=== PATIENT | male | born 1980 | race Hispanic/Latino ===

== ENCOUNTER 2017-01-30 14:03 | Inpatient (IN) | payer MEDICARE, MEDICAID ==
[2017-01-30] MEDS ORDERED: Sodium Chloride 0.9% 1,000 ML IV STA ×3 (14:47→21:34)
[2017-01-30] MEDS ORDERED: Morphine 4 mg/ml ISec IVP STA ×2 (14:47→18:12)
--- NOTE | 2017-01-30 14:52 | ED PDOC ---
Arrival/HPI - General Chief Complaint: Abdominal Pain Time Seen by Provider: 01/30/17 14:06 Historian: Patient, Family - History of Present Illness Narrative History of Present Illness (Text): 01/30/17 14:53 A 36 year old male, whose past medical history includes crohn's disease and pyelonephritis, presents to the emergency department complaining of abdominal pain for about a week. Patient's family reports patient hasn't been eating or drinking and noticed patient discomfort when sitting. 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 Also reports he had an elevated CBC level about 6 days ago and has a scheduled CT abdomen without contrast for abdominal pain to see if patient has kidney stone. Patient is taking Levaquin. Patient notes a low grade fever but denies any vomiting, hematochezia, constipation or any other complaints at this time. Time/Duration: 1 week Symptom Onset: Sudden Symptom Course: Unchanged Activities at Onset: Rest Context: Home Past Medical History - Provider Review Nursing Documentation Reviewed: Yes - Infectious Disease Hx of Infectious Diseases: None - Tetanus Immunization Tetanus Immunization: Up to Date - Cardiac Hx Pacemaker: No - Pulmonary Hx Respiratory Disorders: No Hx Asthma: No Hx Bronchitis: No Hx Chronic Obstructive Pulmonary Disease (COPD): No Hx Emphysema: No Hx Pneumonia: No Hx Respiratory Aspiration: No Hx Respiratory Tract Infection: No Hx Sleep Apnea: No Hx Tuberculosis: No - Neurological Hx Neurological Disorder: No Hx Alzheimer's Disease: No HX Cerebrovascular Accident: No Hx Dementia: No Hx Dizziness: No Hx Meningitis: No Hx Migraine: No Hx Parkinson's Disease: No Hx Seizures: No Hx Transient Ischemic Attacks (TIA): No Other/Comment: DOWN'S SYNDROME. - HEENT Hx HEENT Disorder: Yes Hx Blind: No Hx Cataracts: No Hx Deafness: Yes (BILATERAL HEARING AIDES USED) Hx Difficulty Chewing: No Hx Epistaxis: No Hx Glaucoma: No Hx Macular Degeneration: No - Renal Hx Renal Disorder: Yes Hx Dialysis: No Hx Kidney Stones: No Hx Neurogenic Bladder: No Hx Pyelonephritis: No Hx Renal Cancer: No Hx Renal Failure: No Other/Comment: Current kidney infection - Endocrine/Metabolic Hx Hypothyroidism: Yes - Hematological/Oncological Hx Blood Transfusions: Yes (LAST YEAR) Hx Blood Transfusion Reaction: No - Integumentary Hx Dermatological Disorder: Yes (LARGE GAPING WOUND IN BETWEEN BUTTOCKS.7.5 CM IN LENGTH.) Hx Basal Cell Carcinoma: No Hx Eczema: No Hx Melanoma: No Hx Psoriasis: No Hx Squamous Cell Carcinoma: No - Musculoskeletal/Rheumatological Hx Musculoskeletal Disorders: Yes - Gastrointestinal Hx Gastrointestinal Disorders: Yes Hx Colitis: Yes - Genitourinary/Gynecological Hx Genitourinary Disorders: No Hx Reproductive Disorders: No - Psychiatric Hx Emotional Abuse: No Hx Physical Abuse: No Hx Substance Use: No - Surgical History Hx Cardiac Catheterization: No Hx Coronary Stent: No Other/Comment: Pilonidal cyst - Anesthesia Hx Anesthesia Reactions: No Hx Malignant Hyperthermia: No - Suicidal Assessment Feels Threatened In Home Enviroment: No Family/Social History - Physician Review Nursing Documentation Reviewed: Yes Family/Social History: No Known Family HX Smoking Status: Never Smoked Hx Alcohol Use: No Hx Substance Use: No Hx Substance Use Treatment: No Allergies/Home Meds Allergies/Adverse Reactions: Allergies Sulfa (Sulfonamide Antibiotics) Allergy (Verified 01/30/17 14:11) ANAPHYLAXIS Home Medications: Home Meds Medication Instructions Recorded Confirmed Levofloxacin [Levaquin] 750 mg PO DAILY 01/30/17 01/30/17 Review of Systems - Physician Review All systems were reviewed & negative as marked: Yes - Review of Systems Constitutional: Fevers (low grade) Gastrointestinal: Abdominal Pain, Appetite Changes. absent: Hematochezia Physical Exam Vital Signs Reviewed: Yes Vital Signs Temp Pulse Resp BP Pulse Ox 01/30/17 23:37 100 H 16 90/59 L 92 L 01/30/17 22:30 102 H 18 102/50 L 01/30/17 18:15 102 H 18 102/50 L 94 L 01/30/17 16:10 98 H 17 105/72 96 01/30/17 14:17 97.3 F L 98 H 18 129/64 97 01/30/17 14:16 97.6 F 94 H 18 129/67 96 Temperature: Afebrile Blood Pressure: Normal Pulse: Regular Respiratory Rate: Normal Appearance: Positive for: Well-Appearing, Non-Toxic, Comfortable Pain Distress: None Mental Status: Positive for: Alert and Oriented X 3 - Systems Exam Head: Present: Atraumatic, Normocephalic Pupils: Present: PERRL Extroacular Muscles: Present: EOMI Conjunctiva: Present: Normal Mouth: Present: Moist Mucous Membranes Neck: Present: Normal Range of Motion Respiratory/Chest: Present: Clear to Auscultation, Good Air Exchange. No: Respiratory Distress, Accessory Muscle Use Cardiovascular: Present: Regular Rate and Rhythm, Normal S1, S2. No: Murmurs Abdomen: Present: Tenderness (diffuse, nonfocal), Normal Bowel Sounds. No: Distention, Peritoneal Signs, Rebound, Guarding Back: Present: Normal Inspection Upper Extremity: Present: Normal Inspection. No: Cyanosis, Edema Lower Extremity: Present: Normal Inspection. No: Edema Neurological: Present: GCS=15, CN II-XII Intact, Speech Normal. No: Other ( focal deficits) Skin: Present: Warm, Dry, Pale. No: Rashes Psychiatric: Present: Alert, Oriented x 3, Normal Insight, Normal Concentration Medical Decision Making ED Course and Treatment: 01/30/17 17:33 Case discussed with GI fellow, will be on consult. CT Abdomen and Pelvis Without Intravenous Contrast IMPRESSION: - Findings suspicious for malignancy. There is diffuse retroperitoneal lymphadenopathy, a new finding compared to a prior CT, as well as suspected multiple indeterminate liver lesions. Further workup is recommended. - Moderate abdominal and pelvic ascites which appears loculated/complex. - Bilateral pulmonary consolidation, suspicious for pulmonary vascular congestion (versus diffuse pneumonia). - Moderate wall wall thickening involving the descending colon, suspicious for segmental colitis (versus neoplastic wall thickening). - Small left pleural effusion. - Small to moderate pericardial effusion. - Diffuse bladder wall thickening, also seen on prior exam. This is a nonspecific finding, but can be seen with cystitis. Recommend clinical correlation. - See above for remaining findings. Dictated and Authenticated by: Francesca Allen MD 01/30/2017 8:10 PM Eastern Time ([place] & [place]) US Abdomen Limited, Right Upper Quadrant IMPRESSION: Multiple solid-appearing liver lesions, highly suspicious for neoplasm, most likely liver metastases. Biliary ductal dilatation, cause not identified. Recommend correlation with LFTs for laboratory evidence of biliary obstruction. Small amount of ascites. Contracted gallbladder, containing multiple gallstones. No definite sonographic evidence of cholecystitis. See above for remaining findings. Dictated and Authenticated by: Francesca Allen MD 01/30/2017 9:12 PM Eastern Time ([place] & [place]) I disc test results w the pts parents. - Lab Interpretations Microbiology Results: Microbiology Results 01/30/17 14:40 Blood-Venous Blood Culture - Preliminary NO GROWTH AFTER 4 DAYS 01/30/17 14:20 Blood-Venous Blood Culture - Preliminary NO GROWTH AFTER 4 DAYS 01/30/17 15:15 Urine Urine Culture - Final No Growth (<1,000 CFU/ML) Lab Results: 01/30/17 14:45 01/30/17 14:45 Lab Results 01/30/17 15:15: Urine Color Laquita, Urine Appearance Cloudy, Urine pH 5.5, Ur Specific [place] >= 1.030, Urine Protein 100 H, Urine Glucose (UA) 250 H, Urine Ketones Trace H, Urine Blood Negative, Urine Nitrate Positive H, Urine Bilirubin Large H, Urine Urobilinogen 2.0 H, Ur Leukocyte Esterase Trace H, Urine RBC TEST NOT PERFORMED, Urine WBC 5 - 10, Ur Epithelial Cells 6 - 8, Amorphous Sediment Moderate, Urine Bacteria Trace 01/30/17 14:50: pO2 136 H, VBG pH 7.41, VBG pCO2 34.0 L, VBG HCO3 21.6, VBG Total CO2 22.6, VBG O2 Sat (Calc) 99.2 H, VBG Base Excess -2.3 L, VBG Potassium 4.1, Glucose 84, Lactate 2.0, FiO2 21.0, Sodium 131.0 L, Chloride 102.0, Venous Blood Potassium 4.1 01/30/17 14:45: Sodium 132, Potassium 4.3, Chloride 100, Carbon Dioxide 21, Anion Gap 15, BUN 26 H, Creatinine 1.9 H, Est GFR ( Amer) 49, Est GFR ( Non-Af Amer) 41, Random Glucose 66 L, Calcium 8.5, Total Bilirubin 12.6 H, AST 129 H, ALT 121 H, Alkaline Phosphatase 1170 H, Total Protein 7.6, Albumin 2.8 L , Globulin 4.9, Albumin/Globulin Ratio 0.6 L, Lipase 43 01/30/17 14:45: WBC 43.0 H* D, RBC 4.27, Hgb 14.9, Hct 41.1 L, MCV 96.3, MCH 34.9, MCHC 36.3, RDW 14.6 H, Plt Count 157, MPV 11.9 H, Neutrophils % (Manual) 83 H, Band Neutrophils % 0, Lymphocytes % (Manual) 3 L, Monocytes % (Manual) 6, Eosinophils % (Manual) 8 H, Toxic Granulation 2+, Platelet Evaluation Normal, Hypochromasia 1+, Anisocytosis (manual) 1+, Target Cells 2+, Rouleaux 2+, ESR 10 I have reviewed the lab results: Yes - RAD Interpretation Radiology Orders: 01/30/17 18:05 ABD & PELVIS W/O PO OR IV CONT [CT] Stat GALLBLADDER & COMMON DUCT [US] Stat - Medication Orders Current Medication Orders: Albumin Human (Albumin Human 25% (12.5 Gm/50 Ml)) 12.5 gm IV DAILY [facility] Stop: 02/06/17 10:46 Last Admin: 02/04/17 12:32 Dose: Allopurinol (Zyloprim) 100 mg PO DAILY IVAN Last Admin: 02/04/17 10:35 Dose: 100 mg Piperacillin Sod/Tazobactam Sod (Zosyn 2.25 Gm In 0.9% 100 Ml) 2.25 gm in 100 mls @ 100 mls/hr IV Q8 IVAN PRN Reason: Protocol Stop: 02/12/17 22:01 Last Admin: 02/04/17 05:10 Dose: 100 mls/hr Midodrine (Proamatine) 10 mg PO TID [facility] Last Admin: 02/04/17 10:36 Dose: 10 mg Morphine Sulfate (Morphine) 4 mg IVP Q4H PRN PRN Reason: Pain, severe (8-10) Last Admin: 01/31/17 09:30 Dose: 4 mg Re-Assess: [facility] Pain Assessment Document 01/31/17 10:30 AJ (Rec: 01/31/17 14:10 [id number]) Pain Reassessment Is this a pain reassessment? Yes Sleep Is patient sleeping during reassessment? Yes Morphine Sulfate (Morphine) 2 mg IVP Q3H PRN PRN Reason: Pain, moderate (4-7) Last Admin: 02/04/17 11:20 Dose: 2 mg Re-Assess: [facility] Pain Assessment Document 02/04/17 12:16 MMA (Rec: 02/04/17 12:16 MMA [id number][facility] Pain Reassessment Is this a pain reassessment? No Sleep Is patient sleeping during reassessment? No Presence of Pain Presence of Pain Yes Pain Scale Used Pain Scale Used Numeric Location Left, Right or Bilateral Bilateral Upper or Lower Lower Pain Location Body Site Back Description Description Constant Acceptable Level of Pain 8 Pain Behavior Moaning Guarding Facial Grimacing Alleviating Factors/Management Medication Techniques Alleviating Factors Medication Octreotide Acetate (Sandostatin) 100 mcg SC TID [facility] Stop: 02/06/17 14:01 Last Admin: 02/04/17 10:58 Dose: 100 mcg Ondansetron HCl (Zofran Inj) 4 mg IVP Q4H PRN PRN Reason: Nausea/Vomiting Last Admin: 02/02/17 16:58 Dose: 4 mg Phytonadione (Vitamin K Inj) 10 mg SC DAILY [facility] Last Admin: 02/04/17 10:59 Dose: 10 mg Polyethylene Glycol (Miralax) 17 gm PO DAILY [facility] Last Admin: 02/04/17 10:58 Dose: Discontinued Medications Acetaminophen (Tylenol 325mg Tab) 650 mg PO Q4 PRN PRN Reason: Pain, Mild (1-3) Last Admin: 02/01/17 14:19 Dose: 650 mg Re-Assess: MAR Pain/Vitals Document 02/01/17 15:19 SD (Rec: 02/01/17 16:50 SD [id number]) Pain Reassessment Is This A Pain ReAssessment? Yes Sleep Is patient sleeping during reassessment? No Albumin Human (Albumin Human 25% (12.5 Gm/50 Ml)) 12.5 gm IV Q2H IVAN Stop: 01/31/17 15:31 Last Admin: 01/31/17 21:12 Dose: 12.5 gm Albumin Human (Albumin Human 25% (12.5 Gm/50 Ml)) 25 gm IV Q2H IVAN Stop: 02/01/17 14:16 Last Admin: 02/01/17 16:49 Dose: 25 gm Albumin Human (Albumin Human 25% (12.5 Gm/50 Ml)) 12.5 gm IV STAT STA Stop: 02/04/17 12:07 Last Admin: 02/04/17 12:21 Dose: 12.5 gm Allopurinol (Zyloprim) Confirm Administered Dose 100 mg .ROUTE .STK-MED ONE Stop: 02/04/17 10:31 Ephedrine (Ephedrine) Confirm Administered Dose 50 mg .ROUTE .STK-MED ONE Stop: 02/03/17 13:15 Fentanyl (Fentanyl) Confirm Administered Dose 200 mcg .ROUTE .STK-MED ONE Stop: 01/31/17 17:45 Last Admin: 01/31/17 18:15 Dose: 100 mcg Comments: FOR CT BIOPSY Fentanyl (Fentanyl) Confirm Administered Dose 100 mcg .ROUTE .STK-MED ONE Stop: 02/04/17 12:21 Sodium Chloride (Sodium Chloride 0.9%) 1,000 mls @ 999 mls/hr IV .Q1H1M STA Stop: 01/30/17 15:47 Last Admin: 01/30/17 15:01 Dose: 999 mls/hr Piperacillin Sod/Tazobactam Sod (Zosyn 3.375 In Ns 100ml) 100 mls @ 200 mls/hr IVPB STAT STA PRN Reason: Protocol Stop: 01/30/17 15:53 Last Admin: 01/30/17 15:56 Dose: 200 mls/hr Sodium Chloride (Sodium Chloride 0.9%) 1,000 mls @ 100 mls/hr IV .Q10H [facility] Last Admin: 01/31/17 14:26 Dose: 100 mls/hr Sodium Chloride (Sodium Chloride 0.9%) 1,000 mls @ 999 mls/hr IV .Q1H1M STA Stop: 01/30/17 19:12 Last Admin: 01/30/17 18:21 Dose: 999 mls/hr Sodium Chloride (Sodium Chloride 0.9%) 1,000 mls @ 999 mls/hr IV .Q1H1M STA Stop: 01/30/17 22:34 Piperacillin Sod/Tazobactam Sod (Zosyn 3.375 In Ns 100ml) 100 mls @ 200 mls/hr IVPB Q6 IVAN PRN Reason: Protocol Stop: 02/07/17 00:01 Last Admin: 02/02/17 05:51 Dose: 200 mls/hr Sodium Chloride (Sodium Chloride 0.9%) 250 mls @ 999 mls/hr IV .Q16M STA Stop: 01/31/17 16:15 Sodium Chloride (Sodium Chloride 0.45%) 1,000 mls @ 80 mls/hr IV .[id number] [facility] Stop: 02/01/17 08:00 Last Admin: 01/31/17 21:13 Dose: 80 mls/hr Dextrose/Sodium Chloride (Dextrose 5%/0.45% Ns 1000 Ml) 1,000 mls @ 100 mls/hr IV .Q10H [facility] Last Admin: 02/03/17 11:58 Dose: 100 mls/hr Sodium Chloride (Sodium Chloride 0.9%) 500 mls @ 250 mls/hr IV .Q2H STA Stop: 02/01/17 20:57 Sodium Chloride (Sodium Chloride 0.9%) 250 mls @ 999 mls/hr IV .Q16M STA Stop: 02/01/17 19:13 Last Admin: 02/01/17 19:21 Dose: 999 mls/hr Albumin Human (Albumin Human 5% (12.5 Gm/250 Ml)) 2,000 mls @ 83 mls/hr IV ONCE ONE Stop: 02/03/17 08:50 Last Admin: 02/02/17 10:25 Dose: 83 mls/hr Piperacillin Sod/Tazobactam Sod (Zosyn 2.25 Gm In 0.9% 100 Ml) 2.25 gm in 100 mls @ 100 mls/hr IVPB Q6 IVAN PRN Reason: Protocol Stop: 02/02/17 18:59 Last Admin: 02/02/17 16:59 Dose: 100 mls/hr Propofol (Diprivan) Confirm Administered Dose 1,000 mg in 100 mls @ ud .ROUTE .STK-MED ONE Stop: 02/03/17 13:14 Sodium Chloride (Sodium Chloride 0.9%) 1,000 mls @ 75 mls/hr IV .[id number] [facility] Stop: 02/03/17 17:16 Vancomycin HCl (Vancomycin 1gm) 1 gm in 250 mls @ 167 mls/hr IVPB STAT STA PRN Reason: Protocol Stop: 02/04/17 11:26 Last Admin: 02/04/17 10:36 Dose: 167 mls/hr Vancomycin HCl (Vancomycin 1gm) Confirm Administered Dose 1 gm in 250 mls @ ud IVPB .STK-MED ONE Stop: 02/04/17 10:32 Heparin Sodium (Porcine) (Heparin 1000 Units/500 Ml Ns) Confirm Administered Dose 2,000 mls @ ud IV .STK-MED ONE Stop: 02/04/17 11:03 Iodixanol (Visipaque 320 Mg/Ml 100 Ml) Confirm Administered Dose 200 ml IV .STK- MED ONE Stop: 02/04/17 11:03 Iohexol (Omnipaque 240 (50 Ml)) Confirm Administered Dose 50 ml .ROUTE .STK-MED ONE Stop: 01/30/17 17:48 Lidocaine HCl (Lidocaine 2% 20ml Vial) Confirm Administered Dose 80 ml .ROUTE .STK-MED ONE Stop: 02/04/17 11:03 Midazolam HCl (Versed Inj) Confirm Administered Dose 4 mg .ROUTE .STK-MED ONE Stop: 01/31/17 17:44 Last Admin: 01/31/17 18:10 Dose: 2 mg Midazolam HCl (Versed Inj) Confirm Administered Dose 4 mg .ROUTE .STK-MED ONE Stop: 02/03/17 13:14 Midazolam HCl (Versed Inj) Confirm Administered Dose 2 mg .ROUTE .STK-MED ONE Stop: 02/04/17 12:20 Midodrine (Proamatine) Confirm Administered Dose 10 mg .ROUTE .STK-MED ONE Stop: 02/04/17 10:29 Last Admin: 02/04/17 12:13 Dose: Morphine Sulfate (Morphine) 4 mg IVP STAT STA Stop: 01/30/17 14:48 Last Admin: 01/30/17 15:01 Dose: 4 mg Morphine Sulfate (Morphine) 4 mg IVP STAT STA Stop: 01/30/17 18:13 Last Admin: 01/30/17 18:22 Dose: 4 mg Morphine Sulfate (Morphine) Confirm Administered Dose 2 mg .ROUTE .ST-MED ONE Stop: 02/04/17 11:21 Naloxone HCl (Narcan) 0.4 mg IVP ONCE ONE Stop: 02/04/17 12:08 Last Admin: 02/04/17 12:13 Dose: 0.4 mg Naloxone HCl (Narcan) Confirm Administered Dose 0.4 mg .ROUTE .STK-MED ONE Stop: 02/04/17 12:13 Ondansetron HCl (Zofran Inj) 4 mg IVP ONCE ONE Stop: 01/30/17 18:13 Last Admin: 01/30/17 18:21 Dose: 4 mg Phenylephrine HCl (Phenylephrine Inj) Confirm Administered Dose 10 mg .ROUTE .STK-MED ONE Stop: 02/03/17 13:15 Phytonadione (Vitamin K Inj) Confirm Administered Dose 10 mg .ROUTE .STK-MED ONE Stop: 02/04/17 10:30 Polyethylene Glycol (Miralax) Confirm Administered Dose 17 gm .ROUTE .STK-MED ONE Stop: 02/04/17 10:32 - Scribe Statement The provider has reviewed the documentation as recorded by the Milvia Weber Provider Scribe Attestation: All medical record entries made by the Abdifatahibe were at my direction and personally dictated by me. I have reviewed the chart and agree that the record accurately reflects my personal performance of the history, physical exam, medical decision making, and the department course for this patient. I have also personally directed, reviewed, and agree with the discharge instructions and disposition. Disposition/Present on Arrival - Present on Arrival Any Indicators Present on Arrival: No History of DVT/PE: No History of Uncontrolled Diabetes: No Urinary Catheter: No History of Decub. Ulcer: No History Surgical Site Infection Following: None - Disposition Have Diagnosis and Disposition been Completed?: Yes Diagnosis: Biliary obstruction, Malignancy, Leukocytosis Disposition: HOSPITALIZED Disposition Time: 18:08 Condition: GUARDED
[2017-01-30 15:20] LABS: HEMATOCRIT 41.1 % (42.0-52.0); MEAN CELL VOLUME 96.3 fL (80.0-105.0); MEAN CORPUSCULAR HEMOGLOBIN 34.9 pg (25.0-35.0); MEAN CORPUSCULAR HGB CONC 36.3 g/dl (31.0-37.0); MEAN PLATELET VOLUME 11.9 fl (7.0-11.0); PLATELET COUNT 157 10^3/uL (120.0-450.0); RED CELL DISTRIBUTION WIDTH 14.6 % (11.5-14.5)
[2017-01-30 15:23] LABS: ADD MANUAL DIFF? YES
[2017-01-30] MEDS ORDERED: Piperacillin/Tazobact 3.375 gm 100 ML IVPB STA (15:24)
[2017-01-30 15:44] LABS: ALB/GLOB RATIO 0.6 (1.1-1.8); BILIRUBIN,TOTAL 12.6 mg/dL (0.2-1.3); CALCIUM 8.5 mg/dL (8.4-10.5); POTASSIUM 4.3 mmol/L (3.6-5.0); TOTAL PROTEIN 7.6 g/dL (5.8-8.3)
[2017-01-30 15:49] LABS: VENOUS BLOOD GAS BASE EXCESS -2.3 mmol/L (0.0-2.0); VENOUS BLOOD PH 7.41 (7.32-7.43)
[2017-01-30 16:09] LABS: BAND 0 % (0-2); NEUTROPHIL 83 % (50.0-70.0)
[2017-01-30 16:10] LABS: ANISOCYTOSIS 1+; EOSINOPHIL 8 % (0.0-3.0); HYPOCHROMIA 1+; PLATELET ESTIMATE NORMAL (NORMAL)
[2017-01-30 16:11] LABS: ERYTHROCYTE SEDIMENTATION RATE 10 mm/hr (0.0-15.0); TARGET CELLS 2+; TOXIC GRANULATION 2+
[2017-01-30 16:22] LABS: PH,URINE 5.5 (4.7-8.0); URINE APPEARANCE CLOUDY (CLEAR); URINE BILIRUBIN LARGE (NEGATIVE); URINE BLOOD NEGATIVE (NEGATIVE); URINE COLOR AMBER (YELLOW); URINE GLUCOSE (UA) 250 mg/dL (NEGATIVE); URINE KETONE TRACE mg/dL (NEGATIVE); URINE LEUKOCYTE ESTERASE TRACE Leu/uL (NEGATIVE); URINE PROTEIN 100 mg/dL (<30 mg/dL)
[2017-01-30 16:26] LABS: URINE AMORPHOUS SEDIMENT MODERATE; URINE BACTERIA TRACE (NEG)
[2017-01-30] MEDS ORDERED: Iohexol 240 (50 ml) ONE (17:47)
[2017-01-30 19:29] LABS: INR 1.81 (0.93-1.08)
--- NOTE | 2017-01-30 20:11 | CT ---
EXAM: CT Abdomen and Pelvis Without Intravenous Contrast CLINICAL HISTORY: 36 years old, male; Pain; Abdominal pain; Acute; Additional info: Abd pain TECHNIQUE: Axial computed tomography images of the abdomen and pelvis without intravenous contrast. This CT exam was performed using one or more of the following dose reduction techniques: automated exposure control, adjustment of the mA and/or kV according to patient size, and/or use of iterative reconstruction technique. Coronal and sagittal reformatted images were created and reviewed. EXAM DATE/TIME: 01/30/2017 6:05 PM COMPARISON: Prior CT abdomen and pelvis of 10/15/2016 FINDINGS: LOWER THORAX: Small left pleural effusion. Small to moderate pericardial effusion. Bilateral pulmonary consolidation, diffuse in nature, mostly groundglass type. This is suspicious for pulmonary vascular congestion versus diffuse pneumonia. ABDOMEN: LIVER: Diffusely heterogeneous attenuation of the liver, suspicious for development of multiple indeterminate liver lesions. These are difficult to differentiate from the normal liver on this unenhanced exam. 2.2 cm fluid density liver lesion, most likely a cyst. GALLBLADDER AND BILE DUCTS: No CT evidence of acute cholecystitis. No evidence of significant biliary ductal dilatation. PANCREAS: No CT evidence of acute pancreatitis. SPLEEN: No acute abnormality of the spleen identified. ADRENALS: No acute abnormality of the adrenal glands identified. KIDNEYS AND URETERS: No acute abnormality of the kidneys seen. STOMACH AND BOWEL: Moderate wall wall thickening involving the descending colon, suspicious for segmental colitis. Otherwise, no significant abnormality of the bowel is identified. No evidence of diffuse colitis/pancolitis. No evidence of bowel obstruction. APPENDIX: Normal appendix is not seen, however, there are no significant inflammatory changes visualized in the expected location of the appendix to suggest appendicitis. Recommend clinical correlation. PELVIS: BLADDER: Diffuse thickening of the bladder wall. This was also seen on the prior exam. REPRODUCTIVE: No acute abnormality of the reproductive organs is seen. ABDOMEN and PELVIS: INTRAPERITONEAL SPACE: Abdominal and pelvic free fluid/ascites, overall moderate in amount, increased compared to the prior exam. This appears loculated/complex. No evidence of free air.. RETROPERITONEAL SPACE: Small amount of diffuse retroperitoneal fluid, and the abdomen and pelvis, increased in amount. No evidence of retroperitoneal hemorrhage. BONES/JOINTS: Stable appearance of marked, chronic-appearing deformity, remodeling, new bone formation, soft tissue thickening, and dislocation involving the left hip. Disuse atrophy of the left hip musculature. SOFT TISSUES: See above. VASCULATURE: No evidence of abdominal aortic aneurysm. No evidence of periaortic hemorrhage. LYMPH NODES: Diffuse retroperitoneal lymphadenopathy, a new finding, highly suspicious for malignancy. This is greatest in the periportal, portacaval, and left para-aortic regions IMPRESSION: - Findings suspicious for malignancy. There is diffuse retroperitoneal lymphadenopathy, a new finding compared to a prior CT, as well as suspected multiple indeterminate liver lesions. Further workup is recommended. - Moderate abdominal and pelvic ascites which appears loculated/complex. - Bilateral pulmonary consolidation, suspicious for pulmonary vascular congestion (versus diffuse pneumonia). - Moderate wall wall thickening involving the descending colon, suspicious for segmental colitis (versus neoplastic wall thickening). - Small left pleural effusion. - Small to moderate pericardial effusion. - Diffuse bladder wall thickening, also seen on prior exam. This is a nonspecific finding, but can be seen with cystitis. Recommend clinical correlation. - See above for remaining findings.
[2017-01-30 21:52] LABS: VENOUS BLOOD GAS BASE EXCESS -5.2 mmol/L (0.0-2.0); VENOUS BLOOD PH 7.32 (7.32-7.43)
[2017-01-30 22:37] VITALS: BMI 35.0
--- NOTE | 2017-01-30 22:59 | CP.PCM.CON ---
History of Present Illness - History of Present Illness History of Present Illness: The patient is a 36 year old male with history of hypothyroidism, Down's syndrome and ulcerative colitis who presents with several days of worsening diffuse abdominal pain and distention and jaundice. Of note, the patient's mother provided much of the history (at bedside). The patient denies fevers, chills, black or bloody stool, N/V, CP, AMS, dysuria, diarrhea or SOB. In the ED , he was found to have several abnormalities including the following: hyperbilirubinemia, transaminitis, leukocyotosis (marked), a "dirty" UA and NIKITA. Also, CT-scan done in the ED shows numerous abnormalities including: liver lesions, ?malignant ascites and colitis. As a result of these numerous issues, an ICU evaluation was requested. The patient is in no acute distress at this time, however. Review of Systems - Review of Systems All systems: reviewed and no additional remarkable complaints except - Constitutional Constitutional: As Per HPI - EENT Eyes: As Per HPI - Cardiovascular Cardiovascular: As Per HPI - Respiratory Respiratory: As Per HPI - Gastrointestinal Gastrointestinal: As Per HPI - Genitourinary Genitourinary: As Per HPI - Musculoskeletal Musculoskeletal: As Per HPI - Integumentary Integumentary: As Per HPI - Neurological Neurological: As Per HPI Past Patient History - Infectious Disease Hx of Infectious Diseases: None - Tetanus Immunizations Tetanus Immunization: Up to Date - Past Social History Smoking Status: Never Smoked - CARDIAC Hx Pacemaker: No - PULMONARY Hx Respiratory Disorders: No Hx Asthma: No Hx Bronchitis: No Hx Chronic Obstructive Pulmonary Disease (COPD): No Hx Emphysema: No Hx Pneumonia: No Hx Respiratory Aspiration: No Hx Respiratory Tract Infection: No Hx Sleep Apnea: No Hx Tuberculosis: No - NEUROLOGICAL Hx Neurological Disorder: No Hx Alzheimer's Disease: No HX Cerebrovascular Accident: No Hx Dementia: No Hx Dizziness: No Hx Meningitis: No Hx Migraine: No Hx Parkinson's Disease: No Hx Seizures: No Hx Transient Ischemic Attacks (TIA): No Other/Comment: DOWN'S SYNDROME. - HEENT Hx HEENT Problems: Yes Hx Blind: No Hx Cataracts: No Hx Deafness: Yes (BILATERAL HEARING AIDES USED) Hx Difficulty Chewing: No Hx Epistaxis: No Hx Glaucoma: No Hx Macular Degeneration: No - RENAL Hx Chronic Kidney Disease: Yes Hx Dialysis: No Hx Kidney Stones: No Hx Neurogenic Bladder: No Hx Pyelonephritis: No Hx Renal (Kidney) Cancer: No Hx Renal Failure: No Other/Comment: Current kidney infection - ENDOCRINE/METABOLIC Hx Hypothyroidism: Yes - HEMATOLOGICAL/ONCOLOGICAL Hx Blood Disorders: Yes Hx AIDS: No Hx Anemia: Yes (IRON INFUSIONS WEEKLY THURSDAYS) Hx Cancer: No Hx Chemotherapy: No Hx Cirrhosis: No Hx Hepatitis A: No Hx Hepatitis B: No Hx Hepatitis C: No Hx Metastesis: No Hx Shingles: No Hx Unexplained Bleeding: No - INTEGUMENTARY Hx Dermatological Problems: Yes (LARGE GAPING WOUND IN BETWEEN BUTTOCKS.7.5 CM IN LENGTH.) Hx Basil Cell: No Hx Eczema: No Hx Melanoma: No Hx Psoriasis: No Hx Squamous Cell: No - MUSCULOSKELETAL/RHEUMATOLOGICAL Hx Falls: No - GASTROINTESTINAL Hx Gastrointestinal Disorders: Yes - GENITOURINARY/GYNECOLOGICAL Hx Genitourinary Disorders: No - PSYCHIATRIC Hx Emotional Abuse: No Hx Physical Abuse: No - SURGICAL HISTORY Hx Cardiac Catheterization: No Hx Coronary Stent: No Other/Comment: Pilonidal cyst - ANESTHESIA Hx Anesthesia Reactions: No Hx Malignant Hyperthermia: No Meds Allergies/Adverse Reactions: Allergies Allergy/AdvReac Type Severity Reaction Status Date / Time Sulfa (Sulfonamide Allergy ANAPHYLAXIS Verified 01/30/17 14:11 Antibiotics) - Medications Medications: Current Medications Sodium Chloride (Sodium Chloride 0.9%) 1,000 mls @ 100 mls/hr IV .Q10H IVAN Piperacillin Sod/Tazobactam Sod (Zosyn 3.375 In Ns 100ml) 100 mls @ 200 mls/hr IVPB Q6 IVAN PRN Reason: Protocol Stop: 02/07/17 00:01 Physical Exam - Constitutional Additional comments: No acute distress; A&Ox4 - Head Exam Head Exam: ATRAUMATIC, NORMAL INSPECTION, NORMOCEPHALIC - Eye Exam Additional comments: Icteric sclera bilaterally - ENT Exam ENT Exam: Mucous Membranes Dry - Neck Exam Neck exam: Positive for: Full Rom, Normal Inspection - Respiratory Exam Respiratory Exam: Clear to Auscultation Bilateral, NORMAL BREATHING PATTERN - Cardiovascular Exam Cardiovascular Exam: REGULAR RHYTHM - GI/Abdominal Exam Additional comments: Distended; Mild diffuse tenderness to deep palpation; No fluid wave; Normal bowel sounds - Rectal Exam Rectal Exam: Deferred - Neurological Exam Additional comments: Grossly normal neuro exam - Skin Additional comments: Jaundice Results - Vital Signs Recent Vital Signs: Last Vital Signs Temp 97.3 F L 01/30/17 14:17 Pulse 102 H 01/30/17 22:30 Resp 18 01/30/17 22:30 BP 102/50 L 01/30/17 22:30 Pulse Ox 94 L 01/30/17 18:15 - Labs Result Diagrams: 01/31/17 06:30 01/31/17 06:30 Labs: Laboratory Results - last 24 hr 01/30/17 01/30/17 01/30/17 19:00 19:00 21:30 PT 19.5 H INR 1.81 H pO2 99 H VBG pH 7.32 VBG pCO2 40.0 VBG HCO3 20.6 L VBG Total CO2 21.8 L VBG O2 Sat (Calc) 97.8 H VBG Base Excess -5.2 L VBG Potassium 4.4 Sodium 133.0 Chloride 104.0 Glucose 75 Lactate 1.8 FiO2 21.0 Direct Bilirubin 10.8 H Venous Blood Potassium 4.4 - Imaging and Cardiology CT scan - abdomen Status: Report reviewed by me Assessment & Plan - Assessment and Plan (Free Text) Plan: A/P: The patient is a 36 year old male with history of hypothyroidism, Down's syndrome and ulcerative colitis who presents with possible acute cholangitis, NIKITA, leukocytosis, UTI, colitis and ascites. Although the patient does have several acute medical issues, he doesn't require ICU level of care at this time mainly because he is not septic and his vitals are within normal range. Also, his mentation and blood pressures are normal. Recommend starting broad spectrum antibiotics (IV Vanco/Zosyn) and aggressive IVF's. Keep NPO. Check prolactin level. Also recommend doing a therapeutic and diagnostic paracentesis and consulting both GI and ID. If patient's condition continues to deteriorate, please feel free to re-consult. Thank you.
[2017-01-31] MEDS: Sodium Chloride 0.9% 1,000 ML IV SCH ×2 (00:01→14:26)
[2017-01-31] MEDS: Piperacillin/Tazobact 3.375 gm 100 ML IVPB SCH ×3 (00:18→14:05)
[2017-01-31 07:22] LABS: MEAN CELL VOLUME 98.1 fL (80.0-105.0); MEAN CORPUSCULAR HEMOGLOBIN 33.7 pg (25.0-35.0); MEAN CORPUSCULAR HGB CONC 34.3 g/dl (31.0-37.0); MEAN PLATELET VOLUME 11.7 fl (7.0-11.0); RED CELL DISTRIBUTION WIDTH 14.8 % (11.5-14.5)
[2017-01-31 07:31] LABS: ALB/GLOB RATIO 0.6 (1.1-1.8); BILIRUBIN,TOTAL 11.8 mg/dL (0.2-1.3); CALCIUM 7.6 mg/dL (8.4-10.5); MAGNESIUM 1.8 mg/dL (1.7-2.2); POTASSIUM 4.5 mmol/L (3.6-5.0); TOTAL PROTEIN 6.2 g/dL (5.8-8.3)
[2017-01-31 07:38] LABS: WHITE BLOOD COUNT 42.4 10^3/ul (4.5-11.0)
--- NOTE | 2017-01-31 07:44 | CP.PCM.CON ---
<Namita Bryant - Last Filed: 01/31/17 08:58> History of Present Illness - History of Present Illness History of Present Illness: Gastroenterology Fellow/PGY4 Consult Note 36 year old male with history of Hypothyroidism, Down's syndrome, Ulcerative colitis diagnosed 11/2015 on Entyvio last dose beginning of December, with next dose due tomorrow (02/01/17) presenting with abdominal pain. Mother at bedside and patient provide history. She notes two week history of loss of appetite and abdominal pain. Patient describes diffuse severe abdominal pain with particular focus on upper abdomen. Recent outpatient visit with Dr. Escalante 01/26/17 with rectal exam confirming healed sacral wound and concern for UTI confirmed by urine culture at previous PCP visit with progression to possible pyelonephritis. Patient was empirically started on Bactrim double strength and provided script for CT A/P which was scheduled through hospital for today. Unfortunately, patient developed severe abdominal pain and low grade fever at home of 99 degrees Fahrenheit leading to ER presentation yesterday. Mother notes yellowing of skin, eyes, abdominal distension, loss of appetite, and patient noting daily abdominal pain. Denies diarrhea, hematochezia, melena, nausea, vomiting, or hematemesis, indigestion, cough, chest pain, or shortness of breath, weight loss, joint pain, back pain, uveitis, or aphthous ulcers, skin ulcers or rashes. Prior EGD and colonoscopy 11/2015 showing Gastritis and inflamed ulcerated descending/sigmoid/rectum/anus colitis with granulomas/ cryptitis and no dysplasia. Flexible sigmoidoscopy 10/15/16 showed mild chronic active transverse/descending/sigmoid/rectum/anus colitis wth erythematous/ friable/ulcerations/pseudopolyps and a traversed moderate sigmoid stenosis 30cm from anal verge showing benign tissue with granulomatous changes. Family- denies colon cancer Social-denies tobacco, alcohol, illicit drug use Surgery-left ear surgery as an Review of Systems - Review of Systems Review of Systems: A 12-point review of systems negative except for as above Past Patient History - Infectious Disease Hx of Infectious Diseases: None - Tetanus Immunizations Tetanus Immunization: Up to Date - Past Social History Smoking Status: Never Smoked - CARDIAC Hx Pacemaker: No - PULMONARY Hx Respiratory Disorders: No Hx Asthma: No Hx Bronchitis: No Hx Chronic Obstructive Pulmonary Disease (COPD): No Hx Emphysema: No Hx Pneumonia: No Hx Respiratory Aspiration: No Hx Respiratory Tract Infection: No Hx Sleep Apnea: No Hx Tuberculosis: No - NEUROLOGICAL Hx Neurological Disorder: No Hx Alzheimer's Disease: No HX Cerebrovascular Accident: No Hx Dementia: No Hx Dizziness: No Hx Meningitis: No Hx Migraine: No Hx Parkinson's Disease: No Hx Seizures: No Hx Transient Ischemic Attacks (TIA): No Other/Comment: DOWN'S SYNDROME. - HEENT Hx HEENT Problems: Yes Hx Blind: No Hx Cataracts: No Hx Deafness: Yes (BILATERAL HEARING AIDES USED) Hx Difficulty Chewing: No Hx Epistaxis: No Hx Glaucoma: No Hx Macular Degeneration: No - RENAL Hx Chronic Kidney Disease: Yes Hx Dialysis: No Hx Kidney Stones: No Hx Neurogenic Bladder: No Hx Pyelonephritis: No Hx Renal (Kidney) Cancer: No Hx Renal Failure: No Other/Comment: Current kidney infection - ENDOCRINE/METABOLIC Hx Hypothyroidism: Yes - HEMATOLOGICAL/ONCOLOGICAL Hx Blood Disorders: Yes Hx AIDS: No Hx Anemia: Yes (IRON INFUSIONS WEEKLY THURSDAYS) Hx Cancer: No Hx Chemotherapy: No Hx Cirrhosis: No Hx Hepatitis A: No Hx Hepatitis B: No Hx Hepatitis C: No Hx Metastesis: No Hx Shingles: No Hx Unexplained Bleeding: No - INTEGUMENTARY Hx Dermatological Problems: Yes (LARGE GAPING WOUND IN BETWEEN BUTTOCKS.7.5 CM IN LENGTH.) Hx Basil Cell: No Hx Eczema: No Hx Melanoma: No Hx Psoriasis: No Hx Squamous Cell: No - MUSCULOSKELETAL/RHEUMATOLOGICAL Hx Falls: No - GASTROINTESTINAL Hx Gastrointestinal Disorders: Yes - GENITOURINARY/GYNECOLOGICAL Hx Genitourinary Disorders: No - PSYCHIATRIC Hx Emotional Abuse: No Hx Physical Abuse: No - SURGICAL HISTORY Hx Cardiac Catheterization: No Hx Coronary Stent: No Other/Comment: Pilonidal cyst - ANESTHESIA Hx Anesthesia Reactions: No Hx Malignant Hyperthermia: No Meds Allergies/Adverse Reactions: Allergies Allergy/AdvReac Type Severity Reaction Status Date / Time Sulfa (Sulfonamide Allergy ANAPHYLAXIS Verified 01/30/17 14:11 Antibiotics) - Medications Medications: Current Medications Sodium Chloride (Sodium Chloride 0.9%) 1,000 mls @ 100 mls/hr IV .Q10H IVAN Last Admin: 01/31/17 00:01 Dose: 100 mls/hr Piperacillin Sod/Tazobactam Sod (Zosyn 3.375 In Ns 100ml) 100 mls @ 200 mls/hr IVPB Q6 IVAN PRN Reason: Protocol Stop: 02/07/17 00:01 Last Admin: 01/31/17 05:58 Dose: 200 mls/hr Physical Exam - Constitutional Appears: Chronically Ill - Head Exam Head Exam: ATRAUMATIC, NORMOCEPHALIC - Eye Exam Eye Exam: EOMI, PERRL, Scleral icterus Pupil Exam: PERRL. absent: Miosis, Mydriatic - ENT Exam ENT Exam: Mucous Membranes Dry, Normal Oropharynx - Neck Exam Neck exam: Positive for: Full Rom, Normal Inspection - Respiratory Exam Respiratory Exam: Clear to Auscultation Bilateral. absent: Rales, Rhonchi, Wheezes - Cardiovascular Exam Cardiovascular Exam: RRR, +S1, +S2. absent: Gallop, Rubs - GI/Abdominal Exam GI & Abdominal Exam: Distended, Normal Bowel Sounds, Soft, Tenderness. absent: Firm, Guarding, Organomegaly, Rebound, Rigid Additional comments: diffuse tenderness to palpation - Extremities Exam Extremities exam: Positive for: normal inspection, pedal edema - Neurological Exam Neurological exam: Alert - Psychiatric Exam Psychiatric exam: Normal Affect, Normal Mood - Skin Skin Exam: Dry, Intact, Warm Additional comments: jaundice Results - Vital Signs Recent Vital Signs: Last Vital Signs Temp 97.6 F 01/31/17 00:06 Pulse 102 H 01/31/17 00:06 Resp 20 01/31/17 00:06 BP 101/64 01/31/17 00:06 Pulse Ox 96 01/31/17 00:06 - Labs Result Diagrams: 01/31/17 06:30 01/31/17 06:30 Labs: Laboratory Results - last 24 hr 01/30/17 01/30/17 01/30/17 19:00 19:00 21:30 PT 19.5 H INR 1.81 H pO2 99 H VBG pH 7.32 VBG pCO2 40.0 VBG HCO3 20.6 L VBG Total CO2 21.8 L VBG O2 Sat (Calc) 97.8 H VBG Base Excess -5.2 L VBG Potassium 4.4 Sodium 133.0 Chloride 104.0 Glucose 75 Lactate 1.8 FiO2 21.0 Direct Bilirubin 10.8 H Venous Blood Potassium 4.4 Assessment & Plan - Assessment and Plan (Free Text) Assessment: 36 year old male with history of Hypothyroidism, Down's syndrome, Ulcerative colitis diagnosed 11/2015 on Entyvio presenting with abdominal pain. Recent outpatient visit and initiated UTI treatment. CT A/P without contrast showed extensive lymphadenopathy, multiple liver lesions, descending colitis, and pleural effusion/consolidation versus congestion, pleural effusion, and pericardial effusion, and small ascites. 11/2015 EGD- mild chronic gastritis 11/2015 Colonoscopy-ulcerated descending/sigmoid/rectum/anus colitis with granulomas/cryptitis and no dysplasia 10/2016 Flexible sigmoidoscopy-mild chronic active transverse/descending/sigmoid /rectum/anus colitis -traversed moderate sigmoid stenosis 30cm from anal verge showing benign tissue with granulomatous changes Plan: >DDx: lymphoma, colonic neoplasia with liver metastases >follow up ultrasound to evaluate conjugated hyperbilirubinemia >reviewed with Dr. Willis >small ascites- not enough for paracentesis >clear liquid diet after ultrasound performed >left para-aortic lymph node core biopsy today with flow cytometry >follow up results- may consider liver biopsy based on LN biopsy results >acute renal failure- conitune fluid resuscitation -will provide albumin for possible Hepatorenal syndrome- low suspicion >pending blood and urine cultures >on Zosyn >follow up ID recommendations >consider Hem/Onc consultation >close monitoring of clinical course <Tobias Escalante - Last Filed: 01/31/17 11:20> Meds - Medications Medications: Current Medications Albumin Human (Albumin Human 25% (12.5 Gm/50 Ml)) 12.5 gm IV Q2H IVAN Stop: 01/31/17 15:31 Sodium Chloride (Sodium Chloride 0.9%) 1,000 mls @ 100 mls/hr IV .Q10H IVAN Last Admin: 01/31/17 00:01 Dose: 100 mls/hr Piperacillin Sod/Tazobactam Sod (Zosyn 3.375 In Ns 100ml) 100 mls @ 200 mls/hr IVPB Q6 IVAN PRN Reason: Protocol Stop: 02/07/17 00:01 Last Admin: 01/31/17 05:58 Dose: 200 mls/hr Morphine Sulfate (Morphine) 4 mg IVP Q4H PRN PRN Reason: Pain, severe (8-10) Last Admin: 01/31/17 09:30 Dose: 4 mg Results - Vital Signs Recent Vital Signs: Last Vital Signs Temp 97.9 F 01/31/17 07:30 Pulse 93 H 01/31/17 07:30 Resp 20 01/31/17 07:30 BP 94/58 L 01/31/17 07:30 Pulse Ox 99 01/31/17 07:30 - Labs Result Diagrams: 01/31/17 06:30 01/31/17 06:30 Labs: Laboratory Results - last 24 hr 01/30/17 01/30/17 01/30/17 19:00 19:00 21:30 WBC RBC Hgb Hct MCV MCH MCHC RDW Plt Count MPV PT 19.5 H INR 1.81 H pO2 99 H VBG pH 7.32 VBG pCO2 40.0 VBG HCO3 20.6 L VBG Total CO2 21.8 L VBG O2 Sat (Calc) 97.8 H VBG Base Excess -5.2 L VBG Potassium 4.4 Sodium 133.0 Chloride 104.0 Glucose 75 Lactate 1.8 FiO2 21.0 Potassium Carbon Dioxide Anion Gap BUN Creatinine Est GFR ( Amer) Est GFR (Non-Af Amer) Random Glucose Calcium Magnesium Total Bilirubin Direct Bilirubin 10.8 H AST ALT Alkaline Phosphatase Total Protein Albumin Globulin Albumin/Globulin Ratio Venous Blood Potassium 4.4 01/31/17 01/31/17 06:30 06:30 WBC 42.4 H* RBC 3.77 Hgb 12.7 L Hct 37.0 L MCV 98.1 MCH 33.7 MCHC 34.3 RDW 14.8 H Plt Count 149 MPV 11.7 H PT INR pO2 VBG pH VBG pCO2 VBG HCO3 VBG Total CO2 VBG O2 Sat (Calc) VBG Base Excess VBG Potassium Sodium 135 Chloride 106 Glucose Lactate FiO2 Potassium 4.5 Carbon Dioxide 17 L Anion Gap 17 BUN 31 H Creatinine 2.7 H Est GFR ( Amer) 33 Est GFR (Non-Af Amer) 27 Random Glucose 62 L Calcium 7.6 L Magnesium 1.8 Total Bilirubin 11.8 H Direct Bilirubin AST 91 H ALT 108 H Alkaline Phosphatase 883 H Total Protein 6.2 Albumin 2.3 L Globulin 3.9 Albumin/Globulin Ratio 0.6 L Venous Blood Potassium Attending/Attestation - Attestation I have personally seen and examined this patient.: Yes I have fully participated in the care of the patient.: Yes I have reviewed all pertinent clinical information: Yes Notes (Text): 01/31/17 10:52 I have seen and examined patient with GI fellow. Agree with above documentation with the following additions. In brief, this is a 36 year old male with history of Down's syndrome, hypothyroidism, Crohn's colitis with catina- anal disease maintained on outpatient Entyvio who presents to hospital with complaint of abdominal pain, progressive lethargy, and development of jaundice. He was seen in office last week with similar complaints, was found to have a UTI and was given Levaquin and scheduled for outpatient CT imaging for follow up. His symptoms became progressively worse and he came to hospital. He endorses two weeks of lethargy, loss of appetite, and abdominal pain mainly located in left flank. He denies nausea, vomiting, diarrhea, fever/chills, rectal bleeding, night sweats, or weight loss. In fact, he has been progressively gaining weight throughout the course of this year so far. Recently he also reports progressive yellowing of the eyes and skin. He denies recent medication change or OTC/herbal medication use. He had a recent flexible sigmoidoscopy in October 2016 when he was hospitalized for an exacerbation of his underlying inflammatory bowel disease which showed chronic active colitis with sigmoid stenosis, biopsies were negative for dysplasia. After consultation with hematology, he was then started on Entyvio for induction of remission with good clinical response and was planned to undergo complete colonoscopy within 6 months to assess response to therapy. Down's syndrome Hypothyroidism Crohn's colitis, catina-anal disease maintained on outpatient Entyvio Lethargy, abdominal pain, jaundice Acute renal insufficiency Transaminitis, hyperbilirubinemia CT imaging reviewed by me showing small volume catina-hepatic ascites, potential liver lesions (non-contrast CT study performed), and significant intra abdominal lymphadenopathy which is new since prior CT imaging. Differential is broad in this case including infectious complications, lymphoma, or metastatic neoplasm potentially from colonic origin. Presentation is severe, posing threat to patient life. - NPO - Obtain abdominal US to assess for biliary obstruction - Obtain hemolysis panel, LDH - Continue with broad spectrum antibiotic therapy, obtain blood and urine cultures. Follow up ID recommendations. - Continue with IVF hydration therapy and suggest albumin given ascites with acute renal failure for volume challenge to assess response - Continue to monitor LFTs, avoid hepatotoxic therapy - Continue to monitor creatinine - CT imaging reviewed with Dr. Willis, will schedule patient for lymph node biopsy today - Suggest oncology consultation - Overall prognosis is guarded, further management pending results of biopsy and patient clinical progress. Case was discussed in detail with Dr. Marinelli.
[2017-01-31] MEDS ORDERED: Morphine 4 mg/ml ISec IVP PRN (09:07)
[2017-01-31] MEDS: Albumin Human 25% (12.5 gm/50 ml) IV SCH ×4 (10:52→21:12)
--- NOTE | 2017-01-31 11:43 | CP.PCM.CON ---
History of Present Illness - History of Present Illness History of Present Illness: 35 year old male with PMH of hypothyroidism, ulcerative colitis diagnosed in November 2015, obesity with BMI 35, history of pyelonephritis was brought in to [facility] because of abdominal pain for almost as week now. As per the father, the patient was also having low grade fevers. He was being treated with Levaquin for an apparent UTI with associated kidney stone. In the ED, CT scan of the abdomen and pelvis showed colitis with skipped lesions and new onset retroperitoneal lymphadenopathy. Infectious Diseases consult is requested to further evaluate and manage. There has been no note of loss of consciousness , no diarrhea, no vomiting. Review of Systems - Review of Systems All systems: reviewed and no additional remarkable complaints except (as per HPI ) Past Patient History - Infectious Disease Hx of Infectious Diseases: None - Tetanus Immunizations Tetanus Immunization: Up to Date - Past Social History Smoking Status: Never Smoked - CARDIAC Hx Pacemaker: No - PULMONARY Hx Respiratory Disorders: No Hx Asthma: No Hx Bronchitis: No Hx Chronic Obstructive Pulmonary Disease (COPD): No Hx Emphysema: No Hx Pneumonia: No Hx Respiratory Aspiration: No Hx Respiratory Tract Infection: No Hx Sleep Apnea: No Hx Tuberculosis: No - NEUROLOGICAL Hx Neurological Disorder: No Hx Alzheimer's Disease: No HX Cerebrovascular Accident: No Hx Dementia: No Hx Dizziness: No Hx Meningitis: No Hx Migraine: No Hx Parkinson's Disease: No Hx Seizures: No Hx Transient Ischemic Attacks (TIA): No Other/Comment: DOWN'S SYNDROME. - HEENT Hx HEENT Problems: Yes Hx Blind: No Hx Cataracts: No Hx Deafness: Yes (BILATERAL HEARING AIDES USED) Hx Difficulty Chewing: No Hx Epistaxis: No Hx Glaucoma: No Hx Macular Degeneration: No - RENAL Hx Chronic Kidney Disease: Yes Hx Dialysis: No Hx Kidney Stones: No Hx Neurogenic Bladder: No Hx Pyelonephritis: No Hx Renal (Kidney) Cancer: No Hx Renal Failure: No Other/Comment: Current kidney infection - ENDOCRINE/METABOLIC Hx Hypothyroidism: Yes - HEMATOLOGICAL/ONCOLOGICAL Hx Blood Disorders: Yes Hx AIDS: No Hx Anemia: Yes (IRON INFUSIONS WEEKLY THURSDAYS) Hx Cancer: No Hx Chemotherapy: No Hx Cirrhosis: No Hx Hepatitis A: No Hx Hepatitis B: No Hx Hepatitis C: No Hx Metastesis: No Hx Shingles: No Hx Unexplained Bleeding: No - INTEGUMENTARY Hx Dermatological Problems: Yes (LARGE GAPING WOUND IN BETWEEN BUTTOCKS.7.5 CM IN LENGTH.) Hx Basil Cell: No Hx Eczema: No Hx Melanoma: No Hx Psoriasis: No Hx Squamous Cell: No - MUSCULOSKELETAL/RHEUMATOLOGICAL Hx Falls: No - GASTROINTESTINAL Hx Gastrointestinal Disorders: Yes - GENITOURINARY/GYNECOLOGICAL Hx Genitourinary Disorders: No - PSYCHIATRIC Hx Emotional Abuse: No Hx Physical Abuse: No - SURGICAL HISTORY Hx Cardiac Catheterization: No Hx Coronary Stent: No Other/Comment: Pilonidal cyst - ANESTHESIA Hx Anesthesia Reactions: No Hx Malignant Hyperthermia: No Meds Allergies/Adverse Reactions: Allergies Allergy/AdvReac Type Severity Reaction Status Date / Time Sulfa (Sulfonamide Allergy ANAPHYLAXIS Verified 01/30/17 14:11 Antibiotics) - Medications Medications: Current Medications Sodium Chloride (Sodium Chloride 0.9%) 1,000 mls @ 100 mls/hr IV .Q10H IVAN Physical Exam - Constitutional Appears: Chronically Ill - Head Exam Head Exam: ATRAUMATIC - Neck Exam Neck exam: Negative for: Lymphadenopathy, Meningismus - Respiratory Exam Respiratory Exam: Decreased Breath Sounds - Cardiovascular Exam Cardiovascular Exam: +S1, +S2 - GI/Abdominal Exam GI & Abdominal Exam: Soft, Tenderness (lower qudarants). absent: Firm, Guarding , Rebound, Rigid Results - Vital Signs Recent Vital Signs: Last Vital Signs Temp 97.3 F L 01/30/17 14:17 Pulse 102 H 01/30/17 22:30 Resp 18 01/30/17 22:30 BP 102/50 L 01/30/17 22:30 Pulse Ox 94 L 01/30/17 18:15 - Labs Result Diagrams: 01/31/17 06:30 01/31/17 06:30 Labs: Laboratory Results - last 24 hr 01/30/17 01/30/17 01/30/17 19:00 19:00 21:30 PT 19.5 H INR 1.81 H pO2 99 H VBG pH 7.32 VBG pCO2 40.0 VBG HCO3 20.6 L VBG Total CO2 21.8 L VBG O2 Sat (Calc) 97.8 H VBG Base Excess -5.2 L VBG Potassium 4.4 Sodium 133.0 Chloride 104.0 Glucose 75 Lactate 1.8 FiO2 21.0 Direct Bilirubin 10.8 H Venous Blood Potassium 4.4 Assessment & Plan - Assessment and Plan (Free Text) Plan: Assessmentu Consider acute exacerbation of ulcerative colitis, R/O infectious colitis, with new-onset retroperitoneal lymphadenopathy history of Cdiff associated diarrhea history of buttock ulcer hypothyroidism ulcerative colitis diagnosed in November 2015 obesity with BMI 35 Plan started patient on Zosyn pending blood cx, ascitic fluid analysis follow up GI recommendations will monitor clinically
--- NOTE | 2017-01-31 11:45 | US ---
HISTORY: abd pain elevated LFT and alk phos COMPARISON: CT abdomen pelvis without oral or IV contrast performed 01/30/17 TECHNIQUE: Sonographic evaluation of the right upper quadrant of the abdomen. FINDINGS: LIVER: Measures 20.2 cm in length. Diffuse heterogeneous appearance of the hepatic parenchyma. Multiple solid-appearing masses are noted, highly suspicious for malignant neoplasm. The largest of these lesions measures approximately 7.6 x 7.5 cm (right hepatic lobe) and appears rounded heterogeneous in appearance. The main portal vein appears patent with normal directional flow. Intrahepatic biliary ductal dilatation. Small ascites. GALLBLADDER: The gallbladder appears contracted with multiple gallstones (wall echo shadow appearance of the gallbladder fossa). Shadowing limits evaluation of the gallbladder. Largest calculus measuring approximately 2.3 cm. Gallbladder wall measures approximately 2 mm in thickness. No evidence of pericholecystic edema. Negative Edgar's sign as assessed by the mileage clerk. COMMON BILE DUCT: Measures 7 mm. PANCREAS: Not well-visualized. RIGHT KIDNEY: Measures 9.8 x 5.4 x 5.4 cm. No obstructing calculus or hydronephrosis identified. AORTA: Not visualized. IVC: Not visualized. OTHER FINDINGS: None . IMPRESSION: Hepatomegaly. Multiple solid-appearing hepatic masses, highly suspicious for neoplasm, most likely liver metastases. Biliary ductal dilatation, uncertain cause. Recommend correlation with LFTs for laboratory evidence of biliary obstruction. Small ascites. Contracted gallbladder containing multiple gallstones. Negative sonographic Edgar's sign as assessed by the mileage clerk. No evidence of gallbladder wall thickening or pericholecystic edema. Correlate clinically. Additional findings as above. Preliminary impression was provided by virtual radiologic.
[2017-01-31 12:46] LABS: RETIC% 1.29 % (0.5-1.5)
[2017-01-31 13:37] LABS: FIBRINOGEN 191.6 mg/dL (187-400)
[2017-01-31 13:39] LABS: D DIMER 3.63 mg/L FEU (0-0.50)
[2017-01-31] MEDS ORDERED: Sodium Chloride 0.9% 250 ML IV STA (16:00)
[2017-01-31] MEDS ORDERED: Midazolam 2 MG/2 ML VIAL ONE (17:43)
[2017-01-31] MEDS ORDERED: Sodium Chloride 0.45% 1,000 ML IV SCH (18:45)
--- NOTE | 2017-01-31 23:39 | HP ---
CHIEF COMPLAINT AND HISTORY OF PRESENT ILLNESS: This is a 36-year-old male who is coming into the [facility] with complaints of abdominal pain. The patient has a history of Crohn's disease. He has not been feeling well. He had been treated with Levaquin for urinary tract infection. The patient had p lanned see Dr. Escalante, his adult protective caseworker. The patient has not been eating and drinking well. Th e patient had an elevated white count. He is coming in for further evaluation. He denies any fevers . No nausea. He started to become more jaundiced. He was admitted for further evaluation. The pat keshawn has underlying cognitive issues and I am not able to get history. Most of the information was taken from talking to the patient's father and reviewing the records and talking to Dr. Escalante. HOME MEDICATIONS: Levaquin. ALLERGIES: SULFA. PAST MEDICAL HISTORY: Down syndrome, hypothyroidism, Crohn's. SOCIAL HISTORY: He does not smoke, drink or use drugs. He is fairly high functioning. He does have a job. He is looked after by his parents. FAMILY HISTORY: Noncontributory. PHYSICAL EXAMINATION: VITAL SIGNS: The patient's temperature is 98.1. Pulse of 102, blood pressure 111/62, respirations 1 8, O2 saturation 95%. Height is 5 feet 6, weight is 217 pounds. GENERAL: The patient is lying in bed, flat, and in no apparent distress. HEAD AND NECK EXAM: Atraumatic, normocephalic. Conjunctivae are pink. Throat clear and mouth with moist mucosa. Oropharynx benign. EYES: Extraocular movements are intact. PERRLA. NECK: Supple. No JVD, thyromegaly, or adenopathy. No bruits. HEART: S1 and S2 regular rate and rhythm. No murmurs, rubs, or gallops. LUNGS: Clear to auscultation bilaterally. No wheezing rales or rhonchi appreciated. No retractions on exam. ABDOMEN: Bowel sounds are positive. There is diffuse mild tenderness. No rebound. No guarding. EXTREMITIES: No cyanosis, clubbing, or edema. NEUROLOGIC: No facial asymmetry, tongue is midline, no uvula deviation. Power is 5/5 in upper extre mity and 5/5 in lower extremity. Sensation is normal in upper extremity and lower extremity. PSYCHIATRIC: Awake, alert, oriented x 3. No anxiety or depression symptoms. Good insight. Normal affect. GENITOURINARY: No CVA tenderness VASCULAR: 2+ pulses in carotid and pedal pulses. SKIN: No erythema or abnormal nodules noted. SPINE: Normal curvature. LYMPHADENOPATHY: No anterior cervical or posterior cervical adenopathy. No inguinal adenopathy. LABORATORY DATA: White count of 4.43, hemoglobin is 14.9, platelet count 157. Chemistry shows a sod ium 135, potassium is 4.5. He has a total bilirubin that is 11.8, AST is 91, ALT 108. Albumin is 2. 3. INR is 1.8. D-dimer is 3.6. The patient has a urine protein that is 100. Glucose is 250. CT of the abdomen and pelvis has been reviewed. The patient's abdominal ultrasound has been reviewed as well. There is hepatomegaly, multiple solid-appearing hepatic masses. ASSESSMENT: 1. Abdominal pain. 2. Retroperitoneal lymphadenopathy. 3. Moderate ascites. 4. Bilateral pulmonary consolidation. 5. Sepsis. 6. Crohn's. 7. Hyperbilirubinemia. 8. Proximal tubulopathy, possibly Fanconi syndrome. 9. Acute kidney injury. 10. Transaminitis. 11. Coagulopathy. PLAN: The patient is currently admitted to the hospital. He is going to be evaluated by GI and I wi ll also get Dr. Mick Willis to evaluate the patient. He may need a biopsy or fluid collection. I wi ll also get Dr. Padron to evaluate the patient for the high white count. The patient is on morphine f or pain. He is going to be on D5 normal saline. He is not eating as he has been made n.p.o. by GI. I did speak to Dr. Escalante regarding the case. The patient was taking Entyvio, which is vedolizumab f or his Crohn's. Ottoniel Marinelli MD cc: [id number] TT: 01/31/2017 23:38:42 ana
--- NOTE | 2017-02-01 00:17 | CON ---
DATE: 01/31/2017 REASON FOR CONSULTATION: Retroperitoneal lymphadenopathy, anemia, liver lesions. HISTORY OF PRESENT ILLNESS: The patient is a 36-year-old male well known to me from office. He was recently diagnosed with Crohn's disease and was started on Entyvio. The last dose of Entyvio was in early December. He has history of GI bleed and chronic iron deficiency anemia. Two weeks ago, there was significant drop in blood iron and he was started on IV iron. He received 2 doses of IV iron as outpatient. A week ago, his white count was found to be elevated at 24, 000. There were no signs of infection. He was clinically stable. He was seen in office by Dr. Marinelli. UA urine cultures were normal. He developed vague abdominal pain and was admitted to the hospital. CAT scan of the abdomen and pelvis done during this hospitalization showed mild ascites, liver lesions, and retroperitoneal lymphadenopathy. The size of lymph nodes is not mentioned in the CAT scan report. He had a CAT scan done in 10/2016 that did not show retroperitoneal lymphadenopathy. Bilirubin is elevated to 12. An ultrasound of the liver done today showed a multiple large hypodense areas in the liver max measuring up to 7 cm. White count is elevated to 44,000. He does not have fever. He underwent CT-guided biopsy of retroperitoneal lymph node today by Dr. Willis. Denies any bleeding at home. No high-grade fever. PAST MEDICAL HISTORY: Down syndrome, Crohn's disease, iron deficiency anemia, hypothyroidism, history of blood transfusion, multiple times. PAST SURGICAL HISTORY: Perirectal cyst. FAMILY HISTORY: No positive family history in mother or father. PERSONAL HISTORY: Never smoked. No history of alcohol abuse. ALLERGIES: SULFA CAUSES ANAPHYLAXIS. HOME MEDICATIONS: Levofloxacin 750 daily. REVIEW OF SYSTEMS: As per HPI. Rest of 12-point review of systems reviewed and negative. PHYSICAL EXAMINATION: VITAL SIGNS: Temperature 97.6, heart rate 94 per minute, respiratory rate 18 per minute, blood pressure 130/70, pulse ox 96% room air. HEENT: Normal. Pallor positive. Comfortable, oriented x 3. NECK: No lymphadenopathy. CHEST: Clear to auscultation. Air entry present, equal bilateral. No added sound. CARDIOVASCULAR: S1, S2 normal. No murmur, no gallop. ABDOMEN: Soft, nontender. No hepatosplenomegaly, no rigidity. No guarding, no rebound tenderness. EXTREMITIES: No edema. NEUROLOGIC: Alert, oriented x 3. Cranial nerves intact. No sensory motor deficit. SKIN: No petechiae, no rash. skin intact. LABORATORY DATA: White count 54014, hemoglobin 14.9, hematocrit 41.1, platelet 157. Sodium 132, potassium 4.3, BUN 26, creatinine 1.9, glucose 66, bilirubin 12.6, AST 129, ALT 121, alkaline phosphatase 1170. ASSESSMENT AND PLAN: 1. New onset retroperitoneal lymphadenopathy. 2. Leukocytosis. 3. Multiple liver lesions. 4. Renal insufficiency. 5. Hyperbilirubinemia. PLAN: Leukocytosis, large lesion in the liver measuring up to 7 cm on ultrasound of the abdomen, which might be causing obstructive jaundice. He underwent a CT-guided biopsy of the retroperitoneal lymph node. Flow cytometry and path sent, results awaited. I ordered the flow cytometry on peripheral blood for leukemia and lymphoma panel. BCR-ABL by PCR also on peripheral blood. Multiple lesions are highly suspicious for non-Hodgkin's lymphoma. CAT scan in 10/2016 did not show any lymphadenopathy. There was hepatic steatosis, but no discrete hepatic lesions on scans done on 10/2016. There is a possibility of autoimmune lymphoproliferative disorder also, which causes diffuse lymphadenopathy, hepatosplenomegaly. Also called ALPS syndrome. He might need some kind of biliary drainage for possible obstructive hyperbilirubinemia. He is on Entyvio, which causes profound immunosuppression. Possibility of viral infection cannot be ruled out. I will send peripheral blood for quantitative CMV PCR. I will also do EBV serology. He is on broad- spectrum antibiotics, Zosyn. Infectious disease, Dr. Ni, following. Hemoglobin and hematocrit stable. Platelet count is stable. Thank you, Dr. Marinelli, for allowing us to participate in the patient's care. Discussed with the mother possible differential diagnosis and further workup. Danii Padron MD cc: [id number] TT: 02/01/2017 00:16:48 Confirmation # [id number] Dictation # [id number] ana REYES
[2017-02-01 07:03] LABS: HEMATOCRIT 35.1 % (42.0-52.0); MEAN CELL VOLUME 98.3 fL (80.0-105.0); MEAN CORPUSCULAR HEMOGLOBIN 33.9 pg (25.0-35.0); MEAN CORPUSCULAR HGB CONC 34.5 g/dl (31.0-37.0); MEAN PLATELET VOLUME 11.3 fl (7.0-11.0)
[2017-02-01 07:14] LABS: ALB/GLOB RATIO 0.7 (1.1-1.8); CALCIUM 7.2 mg/dL (8.4-10.5); POTASSIUM 4.3 mmol/L (3.6-5.0); TOTAL PROTEIN 6.3 g/dL (5.8-8.3)
--- NOTE | 2017-02-01 08:05 | CP.PCM.PN ---
<MannyNamita - Last Filed: 02/01/17 11:40> Subjective - Date & Time of Evaluation Date of Evaluation: 02/01/17 Time of Evaluation: 09:08 - Subjective Subjective: Gastroenterology Fellow/PGY4 Progress Note Patient notes improving abdominal pain. Denies back pain at biopsy site. Tolerated clear liquid diet. No bowel bowel movement. A 12-point review of systems negative except for as above. Objective - Vital Signs/Intake and Output Vital Signs (last 24 hours): Temp Pulse Resp BP Pulse Ox 98.2 F 91 H 20 86/47 L 93 L 02/01/17 07:30 02/01/17 07:30 02/01/17 07:30 02/01/17 07:30 02/01/17 07:30 Intake and Output: 02/01/17 02/01/17 06:59 18:59 Intake Total 240 Output Total 150 Balance 90 - Medications Medications: Current Medications Acetaminophen (Tylenol 325mg Tab) 650 mg PO Q4 PRN PRN Reason: Pain, Mild (1-3) Piperacillin Sod/Tazobactam Sod (Zosyn 3.375 In Ns 100ml) 100 mls @ 200 mls/hr IVPB Q6 IVAN PRN Reason: Protocol Stop: 02/07/17 00:01 Last Admin: 02/01/17 00:00 Dose: 200 mls/hr Sodium Chloride (Sodium Chloride 0.45%) 1,000 mls @ 80 mls/hr IV .[id number] IVAN Stop: 02/01/17 08:00 Last Admin: 01/31/17 21:13 Dose: 80 mls/hr Dextrose/Sodium Chloride (Dextrose 5%/0.45% Ns 1000 Ml) 1,000 mls @ 100 mls/hr IV .Q10H IVAN Morphine Sulfate (Morphine) 4 mg IVP Q4H PRN PRN Reason: Pain, severe (8-10) Last Admin: 01/31/17 09:30 Dose: 4 mg - Labs Labs: 01/31/17 06:30 02/01/17 06:20 PT 19.5 Seconds (9.9-11.8) H 01/30/17 19:00 INR 1.81 (0.93-1.08) H 01/30/17 19:00 - Constitutional Appears: Non-toxic, No Acute Distress - Head Exam Head Exam: ATRAUMATIC, NORMOCEPHALIC - Eye Exam Eye Exam: EOMI, PERRL, Scleral icterus Pupil Exam: PERRL. absent: Miosis, Mydriatic - ENT Exam ENT Exam: Mucous Membranes Moist, Normal Oropharynx - Neck Exam Neck Exam: Full ROM, Normal Inspection - Respiratory Exam Respiratory Exam: Clear to Ausculation Bilateral. absent: Rales, Rhonchi, Wheezes - Cardiovascular Exam Cardiovascular Exam: RRR, +S1, +S2. absent: Gallop, Rubs - GI/Abdominal Exam GI & Abdominal Exam: Soft, Normal Bowel Sounds. absent: Distended, Firm, Guarding, Rigid, Tenderness, Organomegaly, Rebound Additional comments: obese - Extremities Exam Extremities Exam: Full ROM. absent: Pedal Edema - Neurological Exam Neurological Exam: Alert, Awake - Psychiatric Exam Psychiatric exam: Normal Affect, Normal Mood - Skin Skin Exam: Dry, Intact, Normal Color, Warm Assessment and Plan - Assessment and Plan (Free Text) Assessment: 36 year old male with history of Hypothyroidism, Down's syndrome, Ulcerative colitis diagnosed 11/2015 on Entyvio presenting with abdominal pain. Recent outpatient visit and initiated UTI treatment. CT A/P without contrast showed extensive lymphadenopathy, multiple liver lesions, descending colitis, and pleural effusion/consolidation versus congestion, pleural effusion, and pericardial effusion, and small ascites. 11/2015 EGD- mild chronic gastritis 11/2015 Colonoscopy-ulcerated descending/sigmoid/rectum/anus colitis with granulomas/cryptitis and no dysplasia 10/2016 Flexible sigmoidoscopy-mild chronic active transverse/descending/sigmoid /rectum/anus colitis -traversed moderate sigmoid stenosis 30cm from anal verge showing benign tissue with granulomatous changes Plan: >DDx: lymphoma, colonic neoplasia with liver metastases >ultrasound- intrahepatic dilatation, multiple liver lesions >received albumin 100g yesterday >ordered repeat albumin today >pending MRCP- will coordinate to be performed with anesthesia >concern for hepatorenal syndrome, diagnosis of exclusion >pending urine studies to rule out other causes for renal failure >poor urine output, no blood in U/A >no signs of obstructive uropathy on CT A/P or U/S >pending CEA, AFP >Hem/Onc following- appreciate recommendation >pending blood and urine cultures >on Zosyn >ID following- appreciate recommendations >Dr. Willis-POD1 lymph node biopsy >cultures pending, follow up flow cytometry >clear liquid diet >guarded prognosis, close monitoring of clinical course <Jarrett Chahal - Last Filed: 02/01/17 11:53> Objective - Vital Signs/Intake and Output Vital Signs (last 24 hours): Temp Pulse Resp BP Pulse Ox 98.2 F 91 H 20 86/47 L 93 L 02/01/17 07:30 02/01/17 07:30 02/01/17 07:30 02/01/17 07:30 02/01/17 07:30 Intake and Output: 02/01/17 02/01/17 06:59 18:59 Intake Total 240 Output Total 150 Balance 90 - Medications Medications: Current Medications Acetaminophen (Tylenol 325mg Tab) 650 mg PO Q4 PRN PRN Reason: Pain, Mild (1-3) Albumin Human (Albumin Human 25% (12.5 Gm/50 Ml)) 25 gm IV Q2H IVAN Stop: 02/01/17 14:16 Last Admin: 02/01/17 11:19 Dose: 25 gm Allopurinol (Zyloprim) 100 mg PO DAILY [facility] Last Admin: 02/01/17 11:15 Dose: 100 mg Piperacillin Sod/Tazobactam Sod (Zosyn 3.375 In Ns 100ml) 100 mls @ 200 mls/hr IVPB Q6 IVAN PRN Reason: Protocol Stop: 02/07/17 00:01 Last Admin: 02/01/17 11:16 Dose: 200 mls/hr Dextrose/Sodium Chloride (Dextrose 5%/0.45% Ns 1000 Ml) 1,000 mls @ 100 mls/hr IV .Q10H [facility] Morphine Sulfate (Morphine) 4 mg IVP Q4H PRN PRN Reason: Pain, severe (8-10) Last Admin: 01/31/17 09:30 Dose: 4 mg - Labs Labs: 02/01/17 06:20 02/01/17 06:20 PT 19.5 Seconds (9.9-11.8) H 01/30/17 19:00 INR 1.81 (0.93-1.08) H 01/30/17 19:00 Attending/Attestation - Attestation I have personally seen and examined this patient.: Yes I have fully participated in the care of the patient.: Yes I have reviewed all pertinent clinical information, including history, physical exam and plan: Yes Notes (Text): 02/01/17 11:47 36 year old male with history of Down's syndrome, hypothyroidism, 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 1. Crohn's colitis 2. Jaundice 3. Acute renal failure 4. Lymphadenopathy 5. Liver lesions 6. Ascites Plan: - diet as tolerated - patient is s/p LN biopsy, awaiting results - Hematology/Oncology following for workup of possible lymphoma/malignancy - patient is receiving broad spectrum antibiotics - serological workup for liver disease has been sent - recommend MRCP to evaluate for biliary obstruction - elevated lfts/jaundice may be a consequence of inflitrate liver disease from lymphoma or intrahepatic cholestasis from liver lesions - patient refused MRCP today, will try to schedule it with anasthesia for tomorrow - Nephrology following, concern for need of hemodialysis - patient received albumin
[2017-02-01 08:07] LABS: WHITE BLOOD COUNT 34.1 10^3/ul (4.5-11.0)
[2017-02-01] MEDS ORDERED: Albumin Human 25% (12.5 gm/50 ml) IV SCH (08:15)
--- NOTE | 2017-02-01 09:24 | PN ---
DATE: 02/01/2017 DATE: 02/01/2017 SUBJECTIVE: The patient has no complaints of any chest pain, no shortness of breath. He says his ab dominal pain is better. PHYSICAL EXAMINATION: VITAL SIGNS: Temperature is 98.2, pulse of 91. Blood pressure is 86/47, respirations 20. GENERAL: The patient is comfortable, in no acute distress. HEENT: Anicteric sclerae. Moist mucosa. NECK: No JVD or adenopathy. CARDIAC: S1/S2. No murmurs. No rubs. Regular. RESPIRATORY: Clear to auscultation bilaterally. No wheezes, rales, or rhonchi. Good air entry. ABDOMEN: Bowel sounds are positive, soft, nontender, and nondistended. EXTREMITIES: No edema. Has 1+ pulses. LABORATORY DATA: White count of 34.1, hemoglobin 12.1. Creatinine is 3.5. ASSESSMENT: 1. Sepsis. 2. Abdominal pain. 3. Retroperitoneal lymphadenopathy. 4. Ascites. 5. Bilateral pulmonary consolidation. 6. Crohn's. 7. Hyperbilirubinemia. 8. Proximal tubulopathy. 9. Acute kidney injury. 10. Transaminitis. 11. Coagulopathy. PLAN: The patient has elevated LFTs. He has acute kidney injury as well. His total bilirubin douglas nues to increase. The patient is on D5 half normal saline for fluids. He is currently n.p.o. He is being followed by ID and GI, as well as oncology. I am mostly concerned about hepatorenal syndrome in this patient. We will get urine studies. I did speak to the patient's mother at the bedside to give her an update. I am also concerned that he is continuing to progress with his renal failure and may require dialysis. Overall prognosis is guarded. We will await results of pathology. Ottoniel Marinelli MD cc: [id number] TT: 02/01/2017 09:23:55 Confirmation # [id number] Dictation # [id number] vishal
[2017-02-01] MEDS: Albumin Human 25% (12.5 gm/50 ml) IV SCH ×4 (10:13→16:49)
[2017-02-01] MEDS: Piperacillin/Tazobact 3.375 gm 100 ML IVPB SCH ×3 (11:16→17:12)
[2017-02-01] MEDS: Dextrose 5%/0.45% NS 1,000 ML IV SCH ×2 (16:49→19:47)
--- NOTE | 2017-02-01 18:30 | CP.PCM.PN ---
Subjective - Date & Time of Evaluation Date of Evaluation: 02/01/17 Time of Evaluation: 10:55 - Subjective Subjective: Still feels weak and tired, no fevers overnight, for CT-guided paracentesis and biopsy. Objective - Vital Signs/Intake and Output Vital Signs (last 24 hours): Temp Pulse Resp BP Pulse Ox 98.2 F 91 H 20 86/47 L 93 L 02/01/17 07:30 02/01/17 07:30 02/01/17 07:30 02/01/17 07:30 02/01/17 07:30 Intake and Output: 02/01/17 02/01/17 06:59 18:59 Intake Total 240 Output Total 150 Balance 90 - Medications Medications: Current Medications Acetaminophen (Tylenol 325mg Tab) 650 mg PO Q4 PRN PRN Reason: Pain, Mild (1-3) Albumin Human (Albumin Human 25% (12.5 Gm/50 Ml)) 25 gm IV Q2H IVAN Stop: 02/01/17 14:16 Piperacillin Sod/Tazobactam Sod (Zosyn 3.375 In Ns 100ml) 100 mls @ 200 mls/hr IVPB Q6 IVAN PRN Reason: Protocol Stop: 02/07/17 00:01 Last Admin: 02/01/17 00:00 Dose: 200 mls/hr Dextrose/Sodium Chloride (Dextrose 5%/0.45% Ns 1000 Ml) 1,000 mls @ 100 mls/hr IV .Q10H IVAN Morphine Sulfate (Morphine) 4 mg IVP Q4H PRN PRN Reason: Pain, severe (8-10) Last Admin: 01/31/17 09:30 Dose: 4 mg - Labs Labs: 02/01/17 06:20 02/01/17 06:20 PT 19.5 Seconds (9.9-11.8) H 01/30/17 19:00 INR 1.81 (0.93-1.08) H 01/30/17 19:00 - Constitutional Appears: Chronically Ill - Head Exam Head Exam: NORMAL INSPECTION - Neck Exam Neck Exam: absent: Meningismus - Respiratory Exam Respiratory Exam: Decreased Breath Sounds - Cardiovascular Exam Cardiovascular Exam: +S1, +S2 - GI/Abdominal Exam GI & Abdominal Exam: Soft. absent: Tenderness Assessment and Plan - Assessment and Plan (Free Text) Plan: Assessmentu Consider acute exacerbation of ulcerative colitis, R/O infectious colitis, with new-onset retroperitoneal lymphadenopathy R/O malignancy history of Cdiff associated diarrhea history of buttock ulcer hypothyroidism ulcerative colitis diagnosed in November 2015 obesity with BMI 35 Plan continue Zosyn pending blood cx, ascitic fluid analysis; follow up lymph node biopsy results and follow up CMV, EBV work up in the serum as part of work to rule out lymphoma or leukemia reviewed GI recommendations - will await MRCP will continue to monitor clinically
[2017-02-01] MEDS ORDERED: Sodium Chloride 0.9% 500 ML IV STA (18:58)
[2017-02-01] MEDS ORDERED: Sodium Chloride 0.9% 250 ML IV STA (19:02)
[2017-02-01] MEDS: Morphine 2 mg/ml ISec IVP PRN (20:10)
[2017-02-02] MEDS: Piperacillin/Tazobact 3.375 gm 100 ML IVPB SCH ×2 (00:23→05:51)
[2017-02-02] MEDS: Dextrose 5%/0.45% NS 1,000 ML IV SCH ×2 (03:19→05:50)
[2017-02-02 07:12] LABS: MEAN CELL VOLUME 97.6 fL (80.0-105.0); MEAN CORPUSCULAR HEMOGLOBIN 34.3 pg (25.0-35.0); MEAN CORPUSCULAR HGB CONC 35.2 g/dl (31.0-37.0); MEAN PLATELET VOLUME 12.2 fl (7.0-11.0); RED CELL DISTRIBUTION WIDTH 15.3 % (11.5-14.5)
[2017-02-02 07:20] LABS: ALB/GLOB RATIO 0.7 (1.1-1.8); CALCIUM 7.5 mg/dL (8.4-10.5); MAGNESIUM 1.9 mg/dL (1.7-2.2); POTASSIUM 4.3 mmol/L (3.6-5.0); TOTAL PROTEIN 5.9 g/dL (5.8-8.3)
[2017-02-02 07:26] LABS: URINE BILIRUBIN LARGE (NEGATIVE); URINE BLOOD NEGATIVE (NEGATIVE); URINE GLUCOSE (UA) NEGATIVE (NEGATIVE); URINE KETONE TRACE mg/dL (NEGATIVE); URINE LEUKOCYTE ESTERASE NEGATIVE Leu/uL (NEGATIVE); URINE PROTEIN 30 mg/dL (<30 mg/dL)
[2017-02-02 07:29] LABS: URINE APPEARANCE CLOUDY (CLEAR); URINE COLOR ORANGE (YELLOW)
[2017-02-02 07:37] LABS: WHITE BLOOD COUNT 36.9 10^3/ul (4.5-11.0)
[2017-02-02 07:41] LABS: URINE BACTERIA MANY (NEG); URINE EPITHELIAL CELLS 0 - 2 /hpf (0-5)
[2017-02-02 07:42] LABS: URINE RBC 0 - 2 /hpf (0-2)
--- NOTE | 2017-02-02 07:45 | CP.PCM.PN ---
<MannyNamita - Last Filed: 02/02/17 10:37> Subjective - Date & Time of Evaluation Date of Evaluation: 02/02/17 Time of Evaluation: 07:44 - Subjective Subjective: Gastroenterology Fellow/PGY4 Progress Note Patient notes mild abdominal pain. Tolerated regular diet. No bowel bowel movement. A 12-point review of systems negative except for as above. Objective - Vital Signs/Intake and Output Vital Signs (last 24 hours): Temp Pulse Resp BP Pulse Ox 98.1 F 107 H 20 102/89 94 L 02/02/17 07:30 02/02/17 07:30 02/02/17 07:30 02/02/17 07:30 02/02/17 07:30 Intake and Output: 02/02/17 02/02/17 06:59 18:59 Intake Total 3130 Output Total 125 Balance 3005 - Medications Medications: Current Medications Allopurinol (Zyloprim) 100 mg PO DAILY [facility] Last Admin: 02/01/17 11:15 Dose: 100 mg Piperacillin Sod/Tazobactam Sod (Zosyn 3.375 In Ns 100ml) 100 mls @ 200 mls/hr IVPB Q6 [facility] PRN Reason: Protocol Stop: 02/07/17 00:01 Last Admin: 02/02/17 05:51 Dose: 200 mls/hr Dextrose/Sodium Chloride (Dextrose 5%/0.45% Ns 1000 Ml) 1,000 mls @ 100 mls/hr IV .Q10H [facility] Last Admin: 02/02/17 05:50 Dose: 100 mls/hr Morphine Sulfate (Morphine) 4 mg IVP Q4H PRN PRN Reason: Pain, severe (8-10) Last Admin: 01/31/17 09:30 Dose: 4 mg Morphine Sulfate (Morphine) 2 mg IVP Q3H PRN PRN Reason: Pain, moderate (4-7) Last Admin: 02/01/17 20:10 Dose: 2 mg Ondansetron HCl (Zofran Inj) 4 mg IVP Q4H PRN PRN Reason: Nausea/Vomiting Last Admin: 02/01/17 14:38 Dose: 4 mg - Labs Labs: 02/02/17 06:30 02/02/17 06:30 PT 19.5 Seconds (9.9-11.8) H 01/30/17 19:00 INR 1.81 (0.93-1.08) H 01/30/17 19:00 - Constitutional Appears: No Acute Distress, Chronically Ill - Head Exam Head Exam: ATRAUMATIC, NORMOCEPHALIC - Eye Exam Eye Exam: EOMI, PERRL, Scleral icterus Pupil Exam: PERRL. absent: Miosis, Mydriatic - ENT Exam ENT Exam: Mucous Membranes Moist, Normal Oropharynx - Neck Exam Neck Exam: Normal Inspection - Respiratory Exam Respiratory Exam: Clear to Ausculation Bilateral. absent: Rales, Rhonchi, Wheezes - Cardiovascular Exam Cardiovascular Exam: RRR, +S1, +S2. absent: Gallop, Rubs - GI/Abdominal Exam GI & Abdominal Exam: Distended, Soft, Tenderness, Normal Bowel Sounds. absent: Firm, Guarding, Rigid, Organomegaly Additional comments: mild upper quadrant tenderness to palpation - Extremities Exam Extremities Exam: Normal Inspection, Pedal Edema - Neurological Exam Neurological Exam: Alert, Awake - Psychiatric Exam Psychiatric exam: Normal Affect, Normal Mood - Skin Skin Exam: Dry, Intact, Normal Color, Warm Assessment and Plan - Assessment and Plan (Free Text) Assessment: 36 year old male with history of Hypothyroidism, Down's syndrome, Ulcerative colitis diagnosed 11/2015 on Entyvio presenting with abdominal pain. Recent outpatient visit and initiated UTI treatment. CT A/P without contrast showed extensive lymphadenopathy, multiple liver lesions, descending colitis, and pleural effusion/consolidation versus congestion, pleural effusion, and pericardial effusion, and small ascites. Ultrasound showed intrahepatic dilatation and multiple liver lesions. Active treatment of UTI, worsening renal failure, new lymphadenopathy and liver lesions concerning for lymphoma 11/2015 EGD- mild chronic gastritis 11/2015 Colonoscopy-ulcerated descending/sigmoid/rectum/anus colitis with granulomas/cryptitis and no dysplasia 10/2016 Flexible sigmoidoscopy-mild chronic active transverse/descending/sigmoid /rectum/anus colitis -traversed moderate sigmoid stenosis 30cm from anal verge showing benign tissue with granulomatous changes Plan: >POD2 (01/31) LN biopsy >follow up pathology and flow cytometry today >Hem/Onc managing- appreciate recommendations >refused MRCP yesterday, discussed with anesthesia >father will attempt to assist with MRCP today, if unsuccessful will plan for -MRCP with anesthesia tomorrow >obtain MRI head to rule out brain lesions with risk of PML >repeat Albumin today for total of 72 hours for concern of hepatorenal syndrome >will consider initiation octreotide and midodrine tomorrow if no improvement in renal function >will obtain a doppler U/S to evaluate for portal vein thrombosis >no hemolysis on lab workup >nephrology managing- appreciate recommendations >blood/urine cultures negative to date >on Zosyn day 3 >ID managing- appreciate recommendations >heart healthy diet >Miralax daily >guarded prognosis, close monitoring of clinical course <Nayan Hector MD - Last Filed: 02/02/17 10:53> Objective - Vital Signs/Intake and Output Vital Signs (last 24 hours): Temp Pulse Resp BP Pulse Ox 98.1 F 107 H 20 102/89 94 L 02/02/17 07:30 02/02/17 07:30 02/02/17 07:30 02/02/17 07:30 02/02/17 07:30 Intake and Output: 02/02/17 02/02/17 06:59 18:59 Intake Total 3130 Output Total 125 Balance 3005 - Medications Medications: Current Medications Allopurinol (Zyloprim) 100 mg PO DAILY [facility] Last Admin: 02/02/17 09:02 Dose: 100 mg Dextrose/Sodium Chloride (Dextrose 5%/0.45% Ns 1000 Ml) 1,000 mls @ 100 mls/hr IV .Q10H [facility] Last Admin: 02/02/17 05:50 Dose: 100 mls/hr Albumin Human (Albumin Human 5% (12.5 Gm/250 Ml)) 2,000 mls @ 83 mls/hr IV ONCE ONE Stop: 02/03/17 08:50 Last Admin: 02/02/17 10:25 Dose: 83 mls/hr Piperacillin Sod/Tazobactam Sod (Zosyn 2.25 Gm In 0.9% 100 Ml) 2.25 gm in 100 mls @ 100 mls/hr IVPB Q6 [facility] PRN Reason: Protocol Stop: 02/02/17 18:59 Morphine Sulfate (Morphine) 4 mg IVP Q4H PRN PRN Reason: Pain, severe (8-10) Last Admin: 01/31/17 09:30 Dose: 4 mg Morphine Sulfate (Morphine) 2 mg IVP Q3H PRN PRN Reason: Pain, moderate (4-7) Last Admin: 02/02/17 09:01 Dose: 2 mg Ondansetron HCl (Zofran Inj) 4 mg IVP Q4H PRN PRN Reason: Nausea/Vomiting Last Admin: 02/01/17 14:38 Dose: 4 mg Polyethylene Glycol (Miralax) 17 gm PO DAILY [facility] - Labs Labs: 02/02/17 06:30 02/02/17 06:30 PT 19.5 Seconds (9.9-11.8) H 01/30/17 19:00 INR 1.81 (0.93-1.08) H 01/30/17 19:00 Attending/Attestation - Attestation I have personally seen and examined this patient.: Yes I have fully participated in the care of the patient.: Yes I have reviewed all pertinent clinical information, including history, physical exam and plan: Yes Notes (Text): 02/02/17 10:50 Patient seen with GI fellow and faculty i on call medical assistant on rounds this am. This is a 36 year old male with history of Down's syndrome, hypothyroidism, Crohn's colitis with catina-anal disease maintained on outpatient [facility] who presents to hospital with complaint of abdominal pain, progressive lethargy, and jaundice, found to have acute renal failure, ascites, diffuse lymphadenopathy, liver lesions, marked leukocytosis, all very concerning for malignancy such as lymphoma. s/p LN biopsy pending report. recommend MRCP for biliary obstruction and MRI brain to rule out brain lesions. Has infiltrative disease in liver. Will get abdominal sonogram with doppler to rule out thrombus of portal vein. Continue albumin for 72 hours. Diet as tolerated. Will follow closely with you.
[2017-02-02] MEDS ORDERED: Albumin Human 25% (12.5 gm/50 ml) IV SCH (08:30)
[2017-02-02] MEDS: Morphine 2 mg/ml ISec IVP PRN ×2 (09:01→15:40)
--- NOTE | 2017-02-02 09:53 | PN ---
DATE: 02/02/2017 DATE: 02/02/2017 SUBJECTIVE: The patient has no complaints of any chest pain. He says his abdominal pain is better. PHYSICAL EXAMINATION: VITAL SIGNS: Temperature is 98.1, pulse of 107. Blood pressure is 102/89, respirations 20. GENERAL: The patient is comfortable, in no acute distress. HEENT: Icteric sclerae. There is jaundice. There is yellowing of his skin around his face. NECK: No JVD or adenopathy. CARDIAC: S1/S2. No murmurs. No rubs. Regular. RESPIRATORY: Clear to auscultation bilaterally. No wheezes, rales, or rhonchi. Good air entry. ABDOMEN: Bowel sounds are positive, soft, nontender, and nondistended. EXTREMITIES: No edema. Has 1+ pulses. LABORATORY DATA: White count of 36.9, hemoglobin 11.6. Creatinine is 4.1. ASSESSMENT: 1. Sepsis. 2. Abdominal pain. 3. Acute kidney injury, most likely secondary to hepatorenal syndrome. 4. Ascites. 5. Crohn's. 6. Hyperbilirubinemia. 7. Proximal tubulopathy. 8. Acute kidney injury. 9. Transaminitis. 10. Coagulopathy. 11. Hyperuricemia. PLAN: The patient had urine studies done that show no significant proteinuria. The patient's sodium is less than 5. The patient has acute liver disease. The patient has no signs of shock. He does h ave blood cultures and urine cultures that are negative, so no signs of ongoing bacterial infection. He has not been on any recent nephrotoxic agents except for his immunosuppressive agent that he was getting for his inflammatory bowel disease. He has no GI fluid losses and no renal fluid losses from diuretic therapy. He has had more than 1.5 liters of isotonic saline with not much relief. He has also received albumin therapy. This indicates that he has the diagnostic criteria for hepatorenal sy ndrome. I did speak to the patient's mother at the bedside, and MRCP is pending. The patient is on morphine for pain - will continue. He is on Zosyn. The patient should have his Zo syn dosages decreased. I will decrease it to 2.25 because of his renal function being poor. I did speak to GI regarding the case. I also spoke with Dr. Padron. The patient has hyperuricemia and has been started on allopurinol. We will repeat the patient's bloo d work tomorrow. Flow cytometry has also been ordered. The results are pending. The patient has an extensive differential diagnosis. The patient had been taking vedolizumab. There is hepatitis that can occur with this medication. I believe that the vedolizumab may have been the agent that caused his underlying issues. We will continue to follow closely. Overall, prognosis is guarded. I have c oncerns that the patient is not getting an MRCP, and was also getting contrast, and can have side eff ects from this contrast. Given the risks and benefits, I agree that MRCP should be done to look for the cause of his liver failure and possible treatment for his underlying illness. Ottoniel Marinelli MD cc: [id number] TT: 02/02/2017 09:53:27 Confirmation # [id number] Dictation # [id number] vishal
[2017-02-02 10:00] LABS: EPSTEIN-BARR VCA AB IGG <18.00 U/mL; EPSTEIN-BARR VCA AB IGM <36.00 U/mL
--- NOTE | 2017-02-02 11:13 | US ---
PROCEDURE: Duplex Doppler examination of the abdomen HISTORY: hyperbilirubinemia, elevated LFTs COMPARISON: None available. TECHNIQUE: Duplex Doppler examination of the abdomen was performed. FINDINGS: There is normal direction of flow and spectral waveform in the portal vein, hepatic vein and hepatic artery. There is also normal direction of flow in the splenic vein. The IVC is patent. IMPRESSION: No evidence of portal venous thrombosis.
[2017-02-02] MEDS: POLYETHYLENE GLYCOL 3350 17 GM/Dose PACKET PO SCH (11:37)
[2017-02-02] MEDS: Piperacillin/Tazobact 2.25gm 2.25 GM/100 ML BAG IVPB SCH ×2 (11:37→16:59)
--- NOTE | 2017-02-02 15:49 | CT ---
PROCEDURE: CT guided left periaortic lymph node biopsy. HISTORY: Down's syndrome. Crohn's disease. Abdominal lymphadenopathy and liver lesions. Evaluate for metastatic disease versus infection. PHYSICIAN(S): Mick Willis MD. TECHNIQUE: The relative risks and indications of the procedure were explained to the patient's mother and consent obtained. The patient was placed prone on the CT scanner and preliminary images through the mid abdomen obtained. Conscious sedation and monitoring were provided throughout the procedure by a nurse. Enlarged periaortic lymphadenopathy is seen. A 3.3 cm lymph node just below the left renal vessels was selected for biopsy. A left posterior paraspinal approach was selected and the area prepped and draped in the usual sterile fashion. 1% Xylocaine was used to anesthetize the skin and soft tissues. A 17-gauge guiding needle was advanced into the 3.3 cm left periaortic lymph node. Its position was confirmed with CT. Using coaxial technique, multiple core biopsies were obtained. The postprocedure images show no evidence of significant hemorrhage. IMPRESSION: 1. CT-guided left periaortic lymph node biopsy as described above. Microbiology, histology, and flow cytometry were sent
[2017-02-02 15:59] LABS: TOTAL PROTEIN PERITONEAL FLUID <3.0 g/dL
--- NOTE | 2017-02-02 17:00 | CP.PCM.PN ---
Subjective - Date & Time of Evaluation Date of Evaluation: 02/02/17 Time of Evaluation: 10:55 - Subjective Subjective: Patient has less abdominal pain, no fevers overnight, has jaundice. Objective - Vital Signs/Intake and Output Vital Signs (last 24 hours): Temp Pulse Resp BP Pulse Ox 98.1 F 107 H 20 102/89 94 L 02/02/17 07:30 02/02/17 07:30 02/02/17 07:30 02/02/17 07:30 02/02/17 07:30 Intake and Output: 02/02/17 02/02/17 06:59 18:59 Intake Total 3130 Output Total 125 Balance 3005 - Medications Medications: Current Medications Albumin Human (Albumin Human 25% (12.5 Gm/50 Ml)) 25 gm IV Q2H [facility] Stop: 02/02/17 14:31 Allopurinol (Zyloprim) 100 mg PO DAILY [facility] Last Admin: 02/01/17 11:15 Dose: 100 mg Piperacillin Sod/Tazobactam Sod (Zosyn 3.375 In Ns 100ml) 100 mls @ 200 mls/hr IVPB Q6 [facility] PRN Reason: Protocol Stop: 02/07/17 00:01 Last Admin: 02/02/17 05:51 Dose: 200 mls/hr Dextrose/Sodium Chloride (Dextrose 5%/0.45% Ns 1000 Ml) 1,000 mls @ 100 mls/hr IV .Q10H [facility] Last Admin: 02/02/17 05:50 Dose: 100 mls/hr Morphine Sulfate (Morphine) 4 mg IVP Q4H PRN PRN Reason: Pain, severe (8-10) Last Admin: 01/31/17 09:30 Dose: 4 mg Morphine Sulfate (Morphine) 2 mg IVP Q3H PRN PRN Reason: Pain, moderate (4-7) Last Admin: 02/01/17 20:10 Dose: 2 mg Ondansetron HCl (Zofran Inj) 4 mg IVP Q4H PRN PRN Reason: Nausea/Vomiting Last Admin: 02/01/17 14:38 Dose: 4 mg - Labs Labs: 02/02/17 06:30 02/02/17 06:30 PT 19.5 Seconds (9.9-11.8) H 01/30/17 19:00 INR 1.81 (0.93-1.08) H 01/30/17 19:00 - Constitutional Appears: Non-toxic - Head Exam Head Exam: ATRAUMATIC - Eye Exam Eye Exam: Scleral icterus - ENT Exam ENT Exam: Mucous Membranes Moist - Neck Exam Neck Exam: absent: Meningismus - Respiratory Exam Respiratory Exam: Decreased Breath Sounds - Cardiovascular Exam Cardiovascular Exam: +S1, +S2 - GI/Abdominal Exam GI & Abdominal Exam: Soft. absent: Tenderness Assessment and Plan - Assessment and Plan (Free Text) Plan: Assessment Consider acute exacerbation of ulcerative colitis, R/O infectious colitis, with new-onset retroperitoneal lymphadenopathy R/O malignancy S/P CT-guided biopsy; patient is also S/P paracentesis; R/O choledocholelithiasis history of Cdiff associated diarrhea history of buttock ulcer hypothyroidism ulcerative colitis diagnosed in November 2015 obesity with BMI 35 Plan continue Zosyn pending ascitic fluid analysis (blood cx are negative); follow up lymph node biopsy results and follow up CMV, EBV work up in the serum as part of work to rule out lymphoma or leukemia (peripheral blood smear does not point to either but we are still awaiting the lymph node reviewed GI recommendations - will await MRCP will continue to monitor clinically
--- NOTE | 2017-02-02 22:37 | CP.PCM.PN ---
Subjective - Date & Time of Evaluation Date of Evaluation: 02/01/17 Time of Evaluation: 16:00 - Subjective Subjective: he is complaining of back pain. Sitting on bed bent over. Unable to lay on his back due to pain. Poor PO intake. No nausea, no vomiting. urine out put markedly decreased. Blood cultures, urine cultures negative. MRCP was ordered. He could not tolerate the procedure and was not done. Objective - Vital Signs/Intake and Output Vital Signs (last 24 hours): Temp Pulse Resp BP Pulse Ox 98.3 F 92 H 18 96/47 L 94 L 02/02/17 15:55 02/02/17 15:55 02/02/17 15:55 02/02/17 15:55 02/02/17 15:55 Intake and Output: 02/02/17 02/03/17 18:59 06:59 Intake Total 240 300 Output Total 100 Balance 140 300 - Medications Medications: Current Medications Allopurinol (Zyloprim) 100 mg PO DAILY [facility] Last Admin: 02/02/17 09:02 Dose: 100 mg Dextrose/Sodium Chloride (Dextrose 5%/0.45% Ns 1000 Ml) 1,000 mls @ 100 mls/hr IV .Q10H [facility] Last Admin: 02/02/17 05:50 Dose: 100 mls/hr Albumin Human (Albumin Human 5% (12.5 Gm/250 Ml)) 2,000 mls @ 83 mls/hr IV ONCE ONE Stop: 02/03/17 08:50 Last Admin: 02/02/17 10:25 Dose: 83 mls/hr Morphine Sulfate (Morphine) 4 mg IVP Q4H PRN PRN Reason: Pain, severe (8-10) Last Admin: 01/31/17 09:30 Dose: 4 mg Morphine Sulfate (Morphine) 2 mg IVP Q3H PRN PRN Reason: Pain, moderate (4-7) Last Admin: 02/02/17 15:40 Dose: 2 mg Ondansetron HCl (Zofran Inj) 4 mg IVP Q4H PRN PRN Reason: Nausea/Vomiting Last Admin: 02/02/17 16:58 Dose: 4 mg Polyethylene Glycol (Miralax) 17 gm PO DAILY [facility] Last Admin: 02/02/17 11:37 Dose: 17 gm - Labs Labs: 02/02/17 06:30 02/02/17 06:30 PT 19.5 Seconds (9.9-11.8) H 01/30/17 19:00 INR 1.81 (0.93-1.08) H 01/30/17 19:00 - Constitutional Appears: In Acute Distress - Head Exam Head Exam: ATRAUMATIC, NORMAL INSPECTION, NORMOCEPHALIC - Eye Exam Eye Exam: absent: Conjunctival injection, EOMI, Normal appearance, Nystagmus, Periorbital swelling, Periorbital tenderness, PERRL, Scleral icterus - ENT Exam Additional comments: icterus present - Neck Exam Neck Exam: Full ROM, Normal Inspection - Respiratory Exam Respiratory Exam: Clear to Ausculation Bilateral, NORMAL BREATHING PATTERN - Cardiovascular Exam Cardiovascular Exam: REGULAR RHYTHM, +S1, +S2 - GI/Abdominal Exam GI & Abdominal Exam: Soft, Normal Bowel Sounds - Extremities Exam Extremities Exam: Normal Capillary Refill, Normal Inspection - Back Exam Back Exam: muscle spasm - Neurological Exam Neurological Exam: Alert, Awake, CN II-XII Intact, Normal Gait, Oriented x3 - Skin Additional comments: icteric Assessment and Plan - Assessment and Plan (Free Text) Assessment: 1. Jaundice. 2. Acute renal failure 3. Retroperitoneal lymphadenopathy 4. Liver lesions 5. Anemia 6. Chron's disease flare 7. Sepsis 8. leukocytosis Plan : New onset retroperitoneal lymphadenopathy, liver lesions, leukocytosis, jaundice and acute renal failure. Lymph node biopsy done. Flow cytometry sent to [facility] on peripheral blood. Called the lab. Verbal results obtained. Flow is negative for leukemia, lymphoma panel. BCR-ABL negative for CML. Discussed with Dr. Maier, lymph node biopsy. Immunostains pending. Preliminary possible epithelial carcinoma. recommended immunostains for testicular cancer. This is a fast growing malignancy as scans in October were negative. Biopsy is not indicative of lymphoma. LDH elevated, AFP normal. I will send HCG with am labs for testicular cancer. 2. jaundice, large masses in liver. Might need biliary drainage. Chron's flare. s/p 3 doses of Entyvio GI following. 3. Acute renal failure worsening. 4. Leukocytosis improved. cultures negative. EBV, CMV serologies pending. 5. Pain : back pain. changed morphine to 2 mg IV q 3 hrs prn for pain. 6. CV : BP low at 88 systolic. 250 cc NS bolus ordered. Prognosis guarded. Thank you Dr. Marinelli for allowing us to participate in his care.
[2017-02-03] MEDS: Morphine 2 mg/ml ISec IVP PRN ×2 (04:39→09:51)
--- NOTE | 2017-02-03 07:00 | CP.PCM.PN ---
<MannyNamita - Last Filed: 02/03/17 10:06> Subjective - Date & Time of Evaluation Date of Evaluation: 02/03/17 Time of Evaluation: 06:57 - Subjective Subjective: Gastroenterology Fellow/PGY4 Progress Note Patient notes mild abdominal pain. Continues to have poor appetite. No bowel movement for one week. A 12-point review of systems negative except for as above. Objective - Vital Signs/Intake and Output Vital Signs (last 24 hours): Temp Pulse Resp BP Pulse Ox 98.2 F 97 H 20 97/55 L 93 L 02/03/17 01:41 02/03/17 04:35 02/03/17 01:41 02/03/17 04:35 02/03/17 01:41 Intake and Output: 02/02/17 02/03/17 18:59 06:59 Intake Total 240 2050 Output Total 100 Balance 140 0 - Medications Medications: Current Medications Allopurinol (Zyloprim) 100 mg PO DAILY [facility] Last Admin: 02/02/17 09:02 Dose: 100 mg Dextrose/Sodium Chloride (Dextrose 5%/0.45% Ns 1000 Ml) 1,000 mls @ 100 mls/hr IV .Q10H IVAN Last Admin: 02/02/17 05:50 Dose: 100 mls/hr Albumin Human (Albumin Human 5% (12.5 Gm/250 Ml)) 2,000 mls @ 83 mls/hr IV ONCE ONE Stop: 02/03/17 08:50 Last Admin: 02/02/17 10:25 Dose: 83 mls/hr Morphine Sulfate (Morphine) 4 mg IVP Q4H PRN PRN Reason: Pain, severe (8-10) Last Admin: 01/31/17 09:30 Dose: 4 mg Morphine Sulfate (Morphine) 2 mg IVP Q3H PRN PRN Reason: Pain, moderate (4-7) Last Admin: 02/03/17 04:39 Dose: 2 mg Ondansetron HCl (Zofran Inj) 4 mg IVP Q4H PRN PRN Reason: Nausea/Vomiting Last Admin: 02/02/17 16:58 Dose: 4 mg Polyethylene Glycol (Miralax) 17 gm PO DAILY IVAN Last Admin: 02/02/17 11:37 Dose: 17 gm - Labs Labs: 02/02/17 06:30 02/02/17 06:30 PT 19.5 Seconds (9.9-11.8) H 01/30/17 19:00 INR 1.81 (0.93-1.08) H 01/30/17 19:00 - Constitutional Appears: Non-toxic, No Acute Distress - Head Exam Head Exam: ATRAUMATIC, NORMOCEPHALIC - Eye Exam Eye Exam: EOMI, PERRL Pupil Exam: PERRL. absent: Miosis, Mydriatic - ENT Exam ENT Exam: Mucous Membranes Moist, Normal Oropharynx - Neck Exam Neck Exam: Full ROM, Normal Inspection - Respiratory Exam Respiratory Exam: Clear to Ausculation Bilateral. absent: Rales, Rhonchi, Wheezes - Cardiovascular Exam Cardiovascular Exam: RRR, +S1, +S2. absent: Gallop, Rubs - GI/Abdominal Exam GI & Abdominal Exam: Soft, Tenderness, Hypoactive Bowel Sounds. absent: Firm, Guarding, Rigid, Organomegaly, Rebound Additional comments: obese, mild diffuse discomfort to palpation - Extremities Exam Extremities Exam: Full ROM. absent: Pedal Edema - Neurological Exam Neurological Exam: Alert, Awake - Skin Skin Exam: Dry, Intact, Normal Color, Warm Assessment and Plan - Assessment and Plan (Free Text) Assessment: 36 year old male with history of Hypothyroidism, Down's syndrome, Ulcerative colitis diagnosed 11/2015 on Entyvio presenting with abdominal pain. CT A/P and Ultrasound showed extensive lymphadenopathy, multiple new liver lesions, and intrahepatic dilatations. Active treatment of worsening renal failure concerning for hepatorenal syndrome, new lymphadenopathy and liver lesions concerning for lymphoma. Plan: >POD3 (01/31) Lymph node biopsy >pathology and flow cytometry- no blast cells, leukocytosis with mild left shift , no B or T cell lymphoproliferative disorder >MRCP to evaluate biliary dilatation and MRI head to rule out brain lesions ( risk of PML) with anesthesia today >will receive last 2 bottles of Albumin this morning for total of 72 hours >persistent renal failure- will discuss with nephrology initiation of octreotide and midodrine and possible dialysis >noted peritoneal lab of albumin and total protein in [facility]- senior cytogenetics laboratory director to confirm which fluid these tests were performed on - PATIENT DID NOT HAVE A PARACENTESIS >doppler U/S- negative for portal vein thrombosis >NPO today for MRCP with anesthesia >after MRI, will resume heart healthy diet as tolerated, Ensure juice QID and shakes QID >Miralax daily >close monitoring of clinical course >further recommendations after MRCP results <Jarrett Chahal - Last Filed: 02/03/17 10:44> Objective - Vital Signs/Intake and Output Vital Signs (last 24 hours): Temp Pulse Resp BP Pulse Ox 98.6 F 98 H 20 101/43 L 96 02/03/17 07:30 02/03/17 07:30 02/03/17 07:30 02/03/17 07:30 02/03/17 07:30 Intake and Output: 02/03/17 02/03/17 06:59 18:59 Intake Total 2049 Balance 2049 - Medications Medications: Current Medications Allopurinol (Zyloprim) 100 mg PO DAILY [facility] Last Admin: 02/03/17 09:52 Dose: Not Given Dextrose/Sodium Chloride (Dextrose 5%/0.45% Ns 1000 Ml) 1,000 mls @ 100 mls/hr IV .Q10H [facility] Last Admin: 02/02/17 05:50 Dose: 100 mls/hr Morphine Sulfate (Morphine) 4 mg IVP Q4H PRN PRN Reason: Pain, severe (8-10) Last Admin: 01/31/17 09:30 Dose: 4 mg Morphine Sulfate (Morphine) 2 mg IVP Q3H PRN PRN Reason: Pain, moderate (4-7) Last Admin: 02/03/17 09:51 Dose: 2 mg Ondansetron HCl (Zofran Inj) 4 mg IVP Q4H PRN PRN Reason: Nausea/Vomiting Last Admin: 02/02/17 16:58 Dose: 4 mg Polyethylene Glycol (Miralax) 17 gm PO DAILY [facility] Last Admin: 02/03/17 09:52 Dose: Not Given - Labs Labs: 02/03/17 06:15 02/03/17 06:15 PT 19.5 Seconds (9.9-11.8) H 01/30/17 19:00 INR 1.81 (0.93-1.08) H 01/30/17 19:00 Attending/Attestation - Attestation I have personally seen and examined this patient.: Yes I have fully participated in the care of the patient.: Yes I have reviewed all pertinent clinical information, including history, physical exam and plan: Yes Notes (Text): 02/03/17 10:40 36 year old male with history of Down's syndrome, hypothyroidism, Crohn's colitis with catina-anal disease maintained on outpatient Entyvio who presents to hospital with complaint of abdominal pain, progressive lethargy, and jaundice, found to have acute renal failure, ascites, diffuse lymphadenopathy, liver lesions, marked leukocytosis, all very concerning for malignancy. 1. Crohn's colitis 2. Jaundice 3. Acute renal failure 4. Lymphadenopathy 5. Liver lesions 6. Ascites Plan: - diet as tolerated - patient is s/p LN biopsy, negative for lymphoma - Hematology/Oncology following - patient is receiving broad spectrum antibiotics - recommend MRI abdomen/MRCP with anasthesia (patient was unable to tolerate it without sedation) to evaluate for biliary obstruction and liver lesions - elevated CEA, may indicate metastatic colon cancer - pending MRI results, would favor IR biopsy of the liver lesions and liver parenchyma, would also be good to get a paracentesis at that time as well - elevated lfts/jaundice may be a consequence of inflitrate liver disease from metastatic cancer or intrahepatic cholestasis - Nephrology following, likely to need hemodialysis - patient received significant albumin without improvement in renal function
[2017-02-03 07:13] LABS: HEMATOCRIT 31.8 % (42.0-52.0); MEAN CELL VOLUME 97.2 fL (80.0-105.0); MEAN CORPUSCULAR HEMOGLOBIN 33.6 pg (25.0-35.0); MEAN CORPUSCULAR HGB CONC 34.6 g/dl (31.0-37.0); MEAN PLATELET VOLUME 12.5 fl (7.0-11.0); RED CELL DISTRIBUTION WIDTH 15.4 % (11.5-14.5)
[2017-02-03 07:28] LABS: ALB/GLOB RATIO 0.8 (1.1-1.8); CALCIUM 7.7 mg/dL (8.4-10.5); POTASSIUM 4.3 mmol/L (3.6-5.0); TOTAL PROTEIN 6.2 g/dL (5.8-8.3)
[2017-02-03 07:33] LABS: BILIRUBIN,TOTAL 19.1 mg/dL (0.2-1.3)
[2017-02-03 07:55] LABS: WHITE BLOOD COUNT 38.1 10^3/ul (4.5-11.0)
[2017-02-03] MEDS: POLYETHYLENE GLYCOL 3350 17 GM/Dose PACKET PO SCH (09:52)
[2017-02-03 10:38] LABS: INR 2.34 (0.93-1.08)
--- NOTE | 2017-02-03 11:19 | PN ---
DATE: 02/03/2017 SUBJECTIVE: The patient has no complaints of any chest pain, no shortness of breath. He says his ab domen is comfortable. PHYSICAL EXAMINATION: VITAL SIGNS: Temperature is 98.6, pulse of 98, blood pressure is 101/43, respirations 20. GENERAL: The patient is comfortable, in no acute distress. HEENT: Anicteric sclerae. Moist mucosa. NECK: No JVD or adenopathy. CARDIAC: S1/S2. No murmurs. No rubs. Regular. RESPIRATORY: Clear to auscultation bilaterally. No wheezes, rales, or rhonchi. Good air entry. ABDOMEN: Bowel sounds are positive, soft, nontender, and nondistended. EXTREMITIES: No edema. Has 1+ pulses. LABORATORIES: White count of 38.1, hemoglobin 11. Bicarb of 16, creatinine is 4.8. The ultrasound of the liver shows no evidence of portal vein thrombosis. ASSESSMENT: 1. Hepatorenal syndrome type 1. 2. Acute kidney injury. 3. Abdominal pain, improved. 4. Crohn's. 5. Hyperbilirubinemia. 6. Proximal tubulopathy. 7. Transaminitis. 8. Coagulopathy. 9. Hyperuricemia. PLAN: The patient is critically ill. His creatinine and his kidney function are worsening. The pat ient is awaiting to get an MRCP done. He may need a liver biopsy because of his liver failure. The patient is on morphine for pain. I will start the patient on albumin, midodrine and octreotide. The patient is going to be on Zofran. He is being followed by GI. His cultures have been negative. I did speak to the patient's family about possibility that the patient may need dialysis. The patient may need transplant evaluation given his poor prognosis. Ottoniel Marinelli MD cc: [id number] TT: 02/03/2017 11:18:11 Confirmation # [id number] Dictation # [id number] en
[2017-02-03] MEDS: Dextrose 5%/0.45% NS 1,000 ML IV SCH ×2 (11:58→21:33)
[2017-02-03] MEDS ORDERED: Midazolam 2 MG/2 ML VIAL ONE (13:13)
[2017-02-03] MEDS ORDERED: Propofol 10 mg/ml 1,000 MG/100 ML VIAL ONE (13:13)
[2017-02-03] MEDS ORDERED: Phenylephrine 10 mg/ml Inj ONE (13:14)
[2017-02-03] MEDS ORDERED: ePHEDrine 50 mg/ml Inj ONE (13:14)
[2017-02-03 13:17] LABS: EBV EA (D) AB IgG <9.00 U/mL (<9.00)
[2017-02-03] MEDS ORDERED: Sodium Chloride 0.9% 1,000 ML IV SCH (15:15)
--- NOTE | 2017-02-03 15:35 | MRI ---
PROCEDURE: HISTORY: gallstones, r/o cholelocholithiasis COMPARISON: CT scan dated 01/30/2017 TECHNIQUE: noncontrast FINDINGS: Bilateral pleural effusions and bibasilar infiltrates are present. There is extensive signal heterogeneity of the liver with an ill-defined confluent mass in the right hepatic lobe as well as additional scattered nodules suspicious for underlying malignancy. Multiple large gallstones are identified. There is soft tissue density mass in the janis hepatis. No definite the common bile duct is not well defined. It appears significantly narrowed due to extrinsic mass. The spleen is unremarkable. There is perisplenic ascites. No pancreatic duct dilatation is observed. There is a pancreatic head mass again with confluent adenopathy extending into the janis hepatis as well as into the retroperitoneum with large retroperitoneal lymph nodes. The kidneys and adrenal glands are intrinsically normal. The aorta and IVC are intact. The bowel loops are unremarkable. IMPRESSION: Evidence of large confluent mass in the right hepatic lobe with soft tissue density extending into the janis hepatis as well as the peripancreatic region. Associated confluent lymphadenopathy in the retroperitoneum. Large gallstones with minimal if any visualization of the common bile duct. Abdominal ascites as well as bibasilar effusions and infiltrates.
[2017-02-03] MEDS: Phytonadione 10 mg/ml Inj (Adult) SC SCH (17:31)
[2017-02-03] MEDS: Albumin Human 25% (12.5 gm/50 ml) IV SCH ×2 (17:32→18:53)
--- NOTE | 2017-02-03 18:06 | PN ---
DATE: 02/03/2017 HISTORY OF PRESENT ILLNESS: The patient is in bed in no acute distress. The patient seen earlier in room 561, bed 2. No fevers and chills. PHYSICAL EXAMINATION: VITAL SIGNS: Temperature is 98, blood pressure is 105/70, respiratory rate of 16. HEENT: Unremarkable. NECK: Supple. LUNGS: Have decreased breath sounds. HEART: Normal S1, S2. ABDOMEN: Soft, nontender. LABORATORY DATA: Reveals a white count of 38,000, hemoglobin of 11 and platelets of 83. Chemistries reveal a BUN of 54, creatinine of 4.8 and carcinoembryonic antigen is 23. Urinalysis is noted. Ser ology is noted. Microbiology reveals the blood cultures are negative. The patient had an MRCP, whic h is noted. Dr. Marinelli's progress note is reviewed. ASSESSMENT AND PLAN: This is a 36-year-old with acute exacerbation of ulcerative colitis, new onset of retroperitoneal adenopathy, currently on Zosyn. The patient was seen earlier this morning. Dr. Linette kelly's note is reviewed. The flow cytometry reveals no evidence of B cell or T cell lymphoproliferat dustin disorder. We will check on the official pathology. Lymph node biopsy, metastatic tumor, multipl e stains being performed. Preliminary assessment as by Dr. Maier, most likely epithelioid o rigin. We will continue the Zosyn. Niranjan Higginbotham MD cc: [id number] TT: 02/03/2017 18:05:57 Confirmation # [id number] Dictation # [id number] ln
--- NOTE | 2017-02-03 18:31 | CP.PCM.CON ---
History of Present Illness - History of Present Illness History of Present Illness: The patient is a 36 year old male with history of hypothyroidism, Down's syndrome and ulcerative colitis who presented 5 days ago with several days of worsening diffuse abdominal pain and distention and jaundice. Of note, the patient's father provided much of the history (at bedside). He was found to have urosepsis, NIKITA and multiple liver lesions suspicious for malignancy. He had a lymph node biopsy (results pending) and an MRCP done yesterday. After the MRCP, he became hypoxic and therefore an ICU evaluation was requested. Review of Systems - Review of Systems All systems: reviewed and no additional remarkable complaints except - Constitutional Constitutional: As Per HPI - EENT Eyes: As Per HPI Ears: As Per HPI Nose/Mouth/Throat: As Per HPI - Cardiovascular Cardiovascular: As Per HPI - Respiratory Respiratory: As Per HPI - Gastrointestinal Gastrointestinal: As Per HPI - Integumentary Integumentary: As Per HPI - Neurological Neurological: As Per HPI Past Patient History - Infectious Disease Hx of Infectious Diseases: None - Tetanus Immunizations Tetanus Immunization: Up to Date - Past Social History Smoking Status: Never Smoked - CARDIAC Hx Pacemaker: No - PULMONARY Hx Respiratory Disorders: No Hx Asthma: No Hx Bronchitis: No Hx Chronic Obstructive Pulmonary Disease (COPD): No Hx Emphysema: No Hx Pneumonia: No Hx Respiratory Aspiration: No Hx Respiratory Tract Infection: No Hx Sleep Apnea: No Hx Tuberculosis: No - NEUROLOGICAL Hx Neurological Disorder: No Hx Alzheimer's Disease: No HX Cerebrovascular Accident: No Hx Dementia: No Hx Dizziness: No Hx Meningitis: No Hx Migraine: No Hx Parkinson's Disease: No Hx Seizures: No Hx Transient Ischemic Attacks (TIA): No Other/Comment: DOWN'S SYNDROME. - HEENT Hx HEENT Problems: Yes Hx Blind: No Hx Cataracts: No Hx Deafness: Yes (BILATERAL HEARING AIDES USED) Hx Difficulty Chewing: No Hx Epistaxis: No Hx Glaucoma: No Hx Macular Degeneration: No - RENAL Hx Chronic Kidney Disease: Yes Hx Dialysis: No Hx Kidney Stones: No Hx Neurogenic Bladder: No Hx Pyelonephritis: No Hx Renal (Kidney) Cancer: No Hx Renal Failure: No Other/Comment: Current kidney infection - ENDOCRINE/METABOLIC Hx Hypothyroidism: Yes - HEMATOLOGICAL/ONCOLOGICAL Hx Blood Disorders: Yes Hx AIDS: No Hx Anemia: Yes (IRON INFUSIONS WEEKLY THURSDAYS) Hx Cancer: No Hx Chemotherapy: No Hx Cirrhosis: No Hx Hepatitis A: No Hx Hepatitis B: No Hx Hepatitis C: No Hx Metastesis: No Hx Shingles: No Hx Unexplained Bleeding: No - INTEGUMENTARY Hx Dermatological Problems: Yes (LARGE GAPING WOUND IN BETWEEN BUTTOCKS.7.5 CM IN LENGTH.) Hx Basil Cell: No Hx Eczema: No Hx Melanoma: No Hx Psoriasis: No Hx Squamous Cell: No - MUSCULOSKELETAL/RHEUMATOLOGICAL Hx Falls: No - GASTROINTESTINAL Hx Gastrointestinal Disorders: Yes - GENITOURINARY/GYNECOLOGICAL Hx Genitourinary Disorders: No - PSYCHIATRIC Hx Emotional Abuse: No Hx Physical Abuse: No - SURGICAL HISTORY Hx Cardiac Catheterization: No Hx Coronary Stent: No Other/Comment: Pilonidal cyst - ANESTHESIA Hx Anesthesia Reactions: No Hx Malignant Hyperthermia: No Meds Allergies/Adverse Reactions: Allergies Allergy/AdvReac Type Severity Reaction Status Date / Time Sulfa (Sulfonamide Allergy ANAPHYLAXIS Verified 01/30/17 14:11 Antibiotics) - Medications Medications: Current Medications Albumin Human (Albumin Human 25% (12.5 Gm/50 Ml)) 12.5 gm IV DAILY [facility] Stop: 02/06/17 10:46 Last Admin: 02/03/17 17:32 Dose: Not Given Allopurinol (Zyloprim) 100 mg PO DAILY [facility] Last Admin: 02/03/17 09:52 Dose: Not Given Dextrose/Sodium Chloride (Dextrose 5%/0.45% Ns 1000 Ml) 1,000 mls @ 100 mls/hr IV .Q10H IVAN Last Admin: 02/03/17 11:58 Dose: 100 mls/hr Piperacillin Sod/Tazobactam Sod (Zosyn 2.25 Gm In 0.9% 100 Ml) 2.25 gm in 100 mls @ 100 mls/hr IV Q8 IVAN PRN Reason: Protocol Stop: 02/12/17 22:01 Midodrine (Proamatine) 10 mg PO TID [facility] Last Admin: 02/03/17 17:31 Dose: 10 mg Morphine Sulfate (Morphine) 4 mg IVP Q4H PRN PRN Reason: Pain, severe (8-10) Last Admin: 01/31/17 09:30 Dose: 4 mg Morphine Sulfate (Morphine) 2 mg IVP Q3H PRN PRN Reason: Pain, moderate (4-7) Last Admin: 02/03/17 09:51 Dose: 2 mg Octreotide Acetate (Sandostatin) 100 mcg SC TID [facility] Stop: 02/06/17 14:01 Last Admin: 02/03/17 16:37 Dose: Not Given Ondansetron HCl (Zofran Inj) 4 mg IVP Q4H PRN PRN Reason: Nausea/Vomiting Last Admin: 02/02/17 16:58 Dose: 4 mg Phytonadione (Vitamin K Inj) 10 mg SC DAILY [facility] Last Admin: 02/03/17 17:31 Dose: 10 mg Polyethylene Glycol (Miralax) 17 gm PO DAILY [facility] Last Admin: 02/03/17 09:52 Dose: Not Given Physical Exam - Constitutional Additional comments: In mild distress due to nasuea and generalized abdominal pain. - Head Exam Head Exam: ATRAUMATIC, NORMAL INSPECTION, NORMOCEPHALIC - Eye Exam Additional comments: bilateral scleral incterus - ENT Exam ENT Exam: Mucous Membranes Dry - Neck Exam Neck exam: Positive for: Full Rom - Respiratory Exam Respiratory Exam: Clear to Auscultation Bilateral, NORMAL BREATHING PATTERN - Cardiovascular Exam Cardiovascular Exam: Tachycardia, REGULAR RHYTHM - GI/Abdominal Exam Additional comments: Abdominal distention; Diffuse abdominal tenderness to deep palpation; No fluid wave or shifting dullness - Rectal Exam Rectal Exam: Deferred - Extremities Exam Extremities exam: Positive for: normal inspection - Neurological Exam Neurological exam: Alert, CN II-XII Intact, Normal Gait, Oriented x3, Reflexes Normal Results - Vital Signs Recent Vital Signs: Last Vital Signs Temp 98 F 02/03/17 15:18 Pulse 58 L 02/03/17 16:22 Resp 15 02/03/17 15:18 BP 105/71 02/03/17 16:22 Pulse Ox 80 L 02/03/17 16:22 - Labs Result Diagrams: 02/03/17 06:15 02/04/17 06:00 Labs: Laboratory Results - last 24 hr 02/03/17 02/03/17 02/03/17 06:15 06:15 10:00 WBC 38.1 H* RBC 3.27 L Hgb 11.0 L Hct 31.8 L MCV 97.2 MCH 33.6 MCHC 34.6 RDW 15.4 H Plt Count 83 L MPV 12.5 H PT 25.3 H INR 2.34 H Sodium 134 Potassium 4.3 Chloride 106 Carbon Dioxide 16 L Anion Gap 16 BUN 54 H Creatinine 4.8 H Est GFR ( Amer) 17 Est GFR (Non-Af Amer) 14 Random Glucose 74 Calcium 7.7 L Total Bilirubin 19.1 H* AST 68 H ALT 69 H Alkaline Phosphatase 496 H Total Protein 6.2 Albumin 2.8 L Globulin 3.4 Albumin/Globulin Ratio 0.8 L Assessment & Plan - Assessment and Plan (Free Text) Plan: A/P: The patient is a 36 year old male with history of hypothyroidism, Down's syndrome and ulcerative colitis who presented 5 days ago with several days of worsening diffuse abdominal pain and distention and jaundice. Of note, the patient's father provided much of the history (at bedside). He was found to have urosepsis, NIKITA and multiple liver lesions suspicious for malignancy. He had a lymph node biopsy (results pending) and an MRCP done yesterday. Patient's hypoxia seems to resolve after with increased O2 via nasal cannula. However, will transfer to the ICU for closer monitoring including hourly vitals and Q2hr fingersticks (as pt reportedly had several episodes of hypoglycemia yesterday). 1. Sepsis (due to UTI): -continue empiric IV antibiotics 2. Liver Lesions: -suspicious for malignancy -lymph node biopsy results pending -likely cause of coagulopathy and definite cause of patient's jaundice -likely biliary drain placement in AM -will tranfuse FFP 1 unit in preparation for biliary drain placement tomorrow -f/u GI rec's 3. NIKITA: -patient to undergo HD tomorrow (after catheter placement) -receiving IV Albumin -will cont to hold IVF's per nephrology rec's -monitor strict I/O's -f/u nephro rec's GI PPx: Protonix DVT PPx: SCD';s
[2017-02-03] MEDS: Piperacillin/Tazobact 2.25gm 2.25 GM/100 ML BAG IV SCH (21:32)
--- NOTE | 2017-02-03 23:40 | CP.PCM.PN ---
Subjective - Date & Time of Evaluation Date of Evaluation: 02/03/17 Time of Evaluation: 09:00 - Subjective Subjective: He is comfortable in bed. Pain in the back has improved. Scant urine output. Poor PO intake. He is coagulopathic. Few new new petechie on back. Has deep jaundice. He underwent MRCP under conscious sedation. He became hypoxic post sedation with O2 desat in 80s. Post sedation he is arousable but drowsy. Mild respiratory distress. Objective - Vital Signs/Intake and Output Vital Signs (last 24 hours): Temp Pulse Resp BP Pulse Ox 97.8 F 85 27 H 84/41 L 94 L 02/03/17 20:00 02/03/17 22:10 02/03/17 22:10 02/03/17 22:00 02/03/17 22:10 Intake and Output: 02/03/17 02/04/17 18:59 06:59 Intake Total 0 Output Total 150 Balance -150 - Medications Medications: Current Medications Albumin Human (Albumin Human 25% (12.5 Gm/50 Ml)) 12.5 gm IV DAILY [facility] Stop: 02/06/17 10:46 Last Admin: 02/03/17 18:53 Dose: 12.5 gm Allopurinol (Zyloprim) 100 mg PO DAILY [facility] Last Admin: 02/03/17 09:52 Dose: Not Given Dextrose/Sodium Chloride (Dextrose 5%/0.45% Ns 1000 Ml) 1,000 mls @ 100 mls/hr IV .Q10H [facility] Last Admin: 02/03/17 21:33 Dose: 100 mls/hr Piperacillin Sod/Tazobactam Sod (Zosyn 2.25 Gm In 0.9% 100 Ml) 2.25 gm in 100 mls @ 100 mls/hr IV Q8 IVAN PRN Reason: Protocol Stop: 02/12/17 22:01 Last Admin: 02/03/17 21:32 Dose: 100 mls/hr Midodrine (Proamatine) 10 mg PO TID [facility] Last Admin: 02/03/17 17:31 Dose: 10 mg Morphine Sulfate (Morphine) 4 mg IVP Q4H PRN PRN Reason: Pain, severe (8-10) Last Admin: 01/31/17 09:30 Dose: 4 mg Morphine Sulfate (Morphine) 2 mg IVP Q3H PRN PRN Reason: Pain, moderate (4-7) Last Admin: 02/03/17 09:51 Dose: 2 mg Octreotide Acetate (Sandostatin) 100 mcg SC TID [facility] Stop: 02/06/17 14:01 Last Admin: 02/03/17 18:53 Dose: 100 mcg Ondansetron HCl (Zofran Inj) 4 mg IVP Q4H PRN PRN Reason: Nausea/Vomiting Last Admin: 02/02/17 16:58 Dose: 4 mg Phytonadione (Vitamin K Inj) 10 mg SC DAILY [facility] Last Admin: 02/03/17 17:31 Dose: 10 mg Polyethylene Glycol (Miralax) 17 gm PO DAILY [facility] Last Admin: 02/03/17 09:52 Dose: Not Given - Labs Labs: 02/03/17 06:15 02/03/17 06:15 PT 25.3 Seconds (9.9-11.8) H 02/03/17 10:00 INR 2.34 (0.93-1.08) H 02/03/17 10:00 - Constitutional Appears: In Acute Distress - Head Exam Head Exam: ATRAUMATIC, NORMAL INSPECTION, NORMOCEPHALIC - Eye Exam Additional comments: icterus present - Neck Exam Neck Exam: Normal Inspection - Respiratory Exam Respiratory Exam: Respiratory Distress Additional comments: mild - Cardiovascular Exam Cardiovascular Exam: REGULAR RHYTHM, +S1, +S2 - GI/Abdominal Exam GI & Abdominal Exam: Soft, Normal Bowel Sounds - Extremities Exam Extremities Exam: Normal Inspection - Back Exam Back Exam: NORMAL INSPECTION - Neurological Exam Additional comments: drowsy, arousable post sedation - Psychiatric Exam Psychiatric exam: Flat Affect - Skin Skin Exam: Intact, Warm Additional comments: petechie back Assessment and Plan - Assessment and Plan (Free Text) Assessment: 1. Multiple large masses in liver, janis hepatic mass : as seen on MRCP. Biliary drainage planned for tomorrow. Bili elevated to 19.0. Lymph node biopsy immunostains pending. Discussed with Dr. Maier. requested to expedite the results. 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 HCG pending. CA 19.9 with am labs. Flow blood, lymph node negative for lymphoma, leukemia. Discussed with Dr. Chahal, Dr. Escalante to hold liver biopsy requested by GI team. It might not provide additional information, risk of bleeding is very high due to coagulopathy. Lymph node biopsy is expected to provide a diagnosis. 2. Acute renal failure : Dialysis cath to be placed tomorrow. Scant urine output. 3. Sepsis : on IV antibiotics. cultures negative. 4. Coagulopathy : procedure planned for tomorrow. Dialysis cath, biliary drainage, PICC line. 1 unit of FFP today. Coags in am. Might need additional FFP in am. Vit K 10 mg SQ daily. 5. WC counts improving. Hb/ Hct stable. Plt count stable. had a lengthy discussion with the mother, father. Poor prognosis explained. Informed that type of malignancy is being worked up, multiple large tumors in liver, lymphadenoapthy. Father wants him to be treated aggressively. Discussed with the Dr. Marinelli, Dr. Mick Willis. Discussed with DR. Busby, dampener, request evaluation to ICU. He accepted the transfer to ICU. Staff Nurse informed.
[2017-02-04 00:21] LABS: BCR-ABL PRIOR RESULT NOT GIVEN; BCR-ABL SOURCE BLOOD; P190 BCR-ABL1 NOT DETECTED; P210 BCR-ABL1 NOT DETECTED
[2017-02-04] MEDS: Piperacillin/Tazobact 2.25gm 2.25 GM/100 ML BAG IV SCH ×3 (05:10→22:00)
[2017-02-04 07:05] LABS: INR 1.82 (0.93-1.08)
[2017-02-04 07:09] LABS: BASO # 0.18 K/mm3 (0.0-2.0); BASO % 0.4 % (0.0-3.0); EOS # 4.4 (0.0-0.7); EOS % 10.8 % (1.5-5.0); GRAN # 33.54 (1.4-6.5); GRAN % 81.9 % (50.0-68.0); HEMATOCRIT 33.4 % (42.0-52.0); LYMPH % 2.4 % (22.0-35.0); MEAN CELL VOLUME 96.5 fL (80.0-105.0); MEAN CORPUSCULAR HEMOGLOBIN 32.9 pg (25.0-35.0); MEAN CORPUSCULAR HGB CONC 34.1 g/dl (31.0-37.0); MONO # 1.8 (0.1-0.6); MONO % 4.5 % (1.0-6.0); PLATELET COUNT 75 10^3/uL (120.0-450.0); RED CELL DISTRIBUTION WIDTH 15.8 % (11.5-14.5)
[2017-02-04 07:23] LABS: ALB/GLOB RATIO 0.8 (1.1-1.8); CALCIUM 8.2 mg/dL (8.4-10.5); MAGNESIUM 1.9 mg/dL (1.7-2.2); PHOSPHOROUS 6.2 mg/dL (2.5-4.5); POTASSIUM 4.5 mmol/L (3.6-5.0); TOTAL PROTEIN 6.7 g/dL (5.8-8.3)
[2017-02-04 07:26] LABS: BILIRUBIN,TOTAL 22.1 mg/dL (0.2-1.3)
[2017-02-04 07:55] LABS: ADD MANUAL DIFF? NO
[2017-02-04] MEDS: Morphine 2 mg/ml ISec IVP PRN ×3 (08:11→17:53)
--- NOTE | 2017-02-04 08:37 | CP.PCM.PN ---
<Namita Bryant - Last Filed: 02/04/17 10:15> Subjective - Date & Time of Evaluation Date of Evaluation: 02/04/17 Time of Evaluation: 08:34 - Subjective Subjective: Gastroenterology Fellow/PGY4 Progress Note Patient notes worsening abdominal painand malaise. Family notes decline in overall health. Continues to have poor appetite. No bowel movement. A 12-point review of systems negative except for as above. Objective - Vital Signs/Intake and Output Vital Signs (last 24 hours): Temp Pulse Resp BP Pulse Ox 98.1 F 76 35 H 99/63 L 93 L 02/04/17 05:00 02/04/17 07:40 02/04/17 07:40 02/04/17 06:00 02/04/17 07:40 Intake and Output: 02/04/17 02/04/17 06:59 18:59 Intake Total 1470 Output Total 30 Balance 1440 - Medications Medications: Current Medications Albumin Human (Albumin Human 25% (12.5 Gm/50 Ml)) 12.5 gm IV DAILY [facility] Stop: 02/06/17 10:46 Last Admin: 02/03/17 18:53 Dose: 12.5 gm Allopurinol (Zyloprim) 100 mg PO DAILY [facility] Last Admin: 02/03/17 09:52 Dose: Not Given Piperacillin Sod/Tazobactam Sod (Zosyn 2.25 Gm In 0.9% 100 Ml) 2.25 gm in 100 mls @ 100 mls/hr IV Q8 [facility] PRN Reason: Protocol Stop: 02/12/17 22:01 Last Admin: 02/04/17 05:10 Dose: 100 mls/hr Midodrine (Proamatine) 10 mg PO TID [facility] Last Admin: 02/03/17 17:31 Dose: 10 mg Morphine Sulfate (Morphine) 4 mg IVP Q4H PRN PRN Reason: Pain, severe (8-10) Last Admin: 01/31/17 09:30 Dose: 4 mg Morphine Sulfate (Morphine) 2 mg IVP Q3H PRN PRN Reason: Pain, moderate (4-7) Last Admin: 02/04/17 08:11 Dose: 2 mg Octreotide Acetate (Sandostatin) 100 mcg SC TID [facility] Stop: 02/06/17 14:01 Last Admin: 02/03/17 18:53 Dose: 100 mcg Ondansetron HCl (Zofran Inj) 4 mg IVP Q4H PRN PRN Reason: Nausea/Vomiting Last Admin: 02/02/17 16:58 Dose: 4 mg Phytonadione (Vitamin K Inj) 10 mg SC DAILY [facility] Last Admin: 02/03/17 17:31 Dose: 10 mg Polyethylene Glycol (Miralax) 17 gm PO DAILY [facility] Last Admin: 02/03/17 09:52 Dose: Not Given - Labs Labs: 02/04/17 06:00 02/04/17 06:00 PT 19.7 Seconds (9.9-11.8) H 02/04/17 06:00 INR 1.82 (0.93-1.08) H 02/04/17 06:00 - Constitutional Appears: No Acute Distress, Chronically Ill - Head Exam Head Exam: ATRAUMATIC, NORMOCEPHALIC - Eye Exam Eye Exam: EOMI, PERRL, Scleral icterus Pupil Exam: NORMAL ACCOMODATION, PERRL. absent: Miosis, Mydriatic - ENT Exam ENT Exam: Mucous Membranes Moist, Normal Oropharynx - Neck Exam Neck Exam: Full ROM, Normal Inspection - Respiratory Exam Respiratory Exam: Clear to Ausculation Bilateral. absent: Rales, Rhonchi, Wheezes - Cardiovascular Exam Cardiovascular Exam: RRR, +S1, +S2. absent: Gallop, Rubs - GI/Abdominal Exam GI & Abdominal Exam: Soft, Tenderness, Normal Bowel Sounds. absent: Distended, Firm, Guarding, Rigid, Organomegaly, Rebound - Extremities Exam Extremities Exam: Normal Inspection, Pedal Edema - Neurological Exam Neurological Exam: Alert, Awake - Psychiatric Exam Psychiatric exam: Normal Affect, Normal Mood - Skin Skin Exam: Dry, Intact, Warm Additional comments: jaundice Assessment and Plan - Assessment and Plan (Free Text) Assessment: 36 year old male with history of Hypothyroidism, Down's syndrome, Ulcerative colitis diagnosed 11/2015 on [facility] presenting with abdominal pain. CT A/P and Ultrasound showed extensive lymphadenopathy, multiple new liver lesions, and intrahepatic dilatations. Active treatment of worsening renal failure concerning for hepatorenal syndrome, new lymphadenopathy, liver lesions, elevated transaminases and conjugated hyperbilirubinemia in setting of metastatic cancer and/or intrahepatic cholestasis. Plan: >POD4 (01/31) Lymph node biopsy >pathology and flow cytometry- no lymphoproliferative disorder >discussed with Dr. Flores-likely epithelial origin, results requested to be expedited >MRCP reviewed with mild left intrahepatic dilatations large mass of janis hepatis causeing biliary duct obstruction >will undergo PTC today with Dr. Willis >discussed with Dr. Huang and Dr. Padron >to received HD catheter to intiate dialysis and PICC line placement today >received FFP and vitamin K >monitor LFTs >doppler U/S- negative for portal vein thrombosis >NPO today for MRCP with anesthesia >after MRI, will resume heart healthy diet as tolerated, Ensure juice QID and shakes QID >Miralax daily >close monitoring of clinical course >guarded prognosis <Jarrett Chahal - Last Filed: 02/04/17 12:26> Objective - Vital Signs/Intake and Output Vital Signs (last 24 hours): Temp Pulse Resp BP Pulse Ox 97.5 F L 80 22 99/48 L 94 L 02/04/17 11:00 02/04/17 11:30 02/04/17 11:30 02/04/17 11:15 02/04/17 11:30 Intake and Output: 02/04/17 02/04/17 06:59 18:59 Intake Total 1470 Output Total 30 Balance 1440 - Medications Medications: Current Medications Albumin Human (Albumin Human 25% (12.5 Gm/50 Ml)) 12.5 gm IV DAILY [facility] Stop: 02/06/17 10:46 Last Admin: 02/03/17 18:53 Dose: 12.5 gm Allopurinol (Zyloprim) 100 mg PO DAILY [facility] Last Admin: 02/04/17 10:35 Dose: 100 mg Piperacillin Sod/Tazobactam Sod (Zosyn 2.25 Gm In 0.9% 100 Ml) 2.25 gm in 100 mls @ 100 mls/hr IV Q8 [facility] PRN Reason: Protocol Stop: 02/12/17 22:01 Last Admin: 02/04/17 05:10 Dose: 100 mls/hr Midodrine (Proamatine) 10 mg PO TID [facility] Last Admin: 02/04/17 10:36 Dose: 10 mg Morphine Sulfate (Morphine) 4 mg IVP Q4H PRN PRN Reason: Pain, severe (8-10) Last Admin: 01/31/17 09:30 Dose: 4 mg Morphine Sulfate (Morphine) 2 mg IVP Q3H PRN PRN Reason: Pain, moderate (4-7) Last Admin: 02/04/17 11:20 Dose: 2 mg Octreotide Acetate (Sandostatin) 100 mcg SC TID [facility] Stop: 02/06/17 14:01 Last Admin: 02/04/17 10:58 Dose: 100 mcg Ondansetron HCl (Zofran Inj) 4 mg IVP Q4H PRN PRN Reason: Nausea/Vomiting Last Admin: 02/02/17 16:58 Dose: 4 mg Phytonadione (Vitamin K Inj) 10 mg SC DAILY [facility] Last Admin: 02/04/17 10:59 Dose: 10 mg Polyethylene Glycol (Miralax) 17 gm PO DAILY [facility] Last Admin: 02/04/17 10:58 Dose: Not Given - Labs Labs: 02/04/17 06:00 02/04/17 06:00 PT 19.7 Seconds (9.9-11.8) H 02/04/17 06:00 INR 1.82 (0.93-1.08) H 02/04/17 06:00 Attending/Attestation - Attestation I have personally seen and examined this patient.: Yes I have fully participated in the care of the patient.: Yes I have reviewed all pertinent clinical information, including history, physical exam and plan: Yes Notes (Text): 02/04/17 12:24 36 year old male with history of Down's syndrome, hypothyroidism, Crohn's colitis with catina-anal disease maintained on outpatient [facility] who presents to hospital with complaint of abdominal pain, progressive lethargy, and jaundice, found to have acute renal failure, ascites, diffuse lymphadenopathy, liver lesions, marked leukocytosis, all very concerning for malignancy. 1. Crohn's colitis 2. Jaundice 3. Acute renal failure 4. Liver lesions 5. 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
[2017-02-04] MEDS ORDERED: Vancomycin 1gm in NS 250ml 1 GM/250 ML BAG IVPB STA (09:57)
--- NOTE | 2017-02-04 10:12 | PN ---
DATE: 02/04/2017 SUBJECTIVE: The patient has no complaints of any chest pain, no headaches. He says he does have abd ominal pain at times. PHYSICAL EXAMINATION: VITAL SIGNS: Temperature is 98.1, pulse is 76, blood pressure is 99/63, respirations 30. GENERAL: The patient is comfortable, in no acute distress. HEENT: Icteric sclerae. Moist mucosa. NECK: No JVD or adenopathy. CARDIAC: S1/S2. No murmurs. No rubs. Regular. RESPIRATORY: Clear to auscultation bilaterally. No wheezes, rales, or rhonchi. Good air entry. ABDOMEN: Bowel sounds are positive, soft, nontender, and nondistended. EXTREMITIES: No edema. Has 1+ pulses. SKIN: Jaundiced. LABORATORIES: Sodium is 134, creatinine is 6.1. White count of 41. MRCP shows a large confluent mass in the right hepatic lobe. There are large gallstones. Abdominal ascites is seen. ASSESSMENT: 1. Hepatorenal syndrome type 1. 2. Liver mass. 3. Retroperitoneal lymphadenopathy. 4. Gallstones. 5. Acute kidney injury, anuric. 6. Abdominal pain. 7. Crohn's. 8. Hyperbilirubinemia. 9. Proximal tubulopathy. 10. Transaminitis. 11. Hyperuricemia. 12. Coagulopathy. 13. Thrombocytopenia. 14. Hyperphosphatemia. 15. Metabolic acidosis. PLAN: The patient is currently transferred to the ICU. He is critically ill. He was given vitamin K for his coagulopathy. The patient has a significantly high bilirubin. I do not suspect bilirubin induced acute tubular necrosis. The patient is on IV fluids, but I will discontinue the IV fluids be cause the patient is becoming tachypneic. I have started the patient on albumin, octreotide and mido drine for the hepatorenal syndrome. The patient is on Zofran as needed. His antibiotics have been a djusted with Zosyn. The patient is becoming thrombocytopenic. That is highly concerning. According to the preliminary report from pathology, the patient may have a malignancy on the lymph node biopsy . Because of the patient's elevated bilirubin, a plan has been made to place a drain for relief. Th e patient is going to have a peripherally inserted central catheter line placed. He is also going to have a PermCath placed in order to dialyze the patient. He is starting to become tachypneic and he was hypoxic yesterday. He is producing minimal urine output. He had about 180 mL in 24 hours. The patient was also going to have serology testing done in order to rule out other causes of his acute k idney injury. The patient's overall prognosis is poor. I have spoken to the patient's family regard ing his overall prognosis. I will also ask Silke Hobbs for palliative care evaluation. The patien t is going to have repeat blood work done tomorrow. I doubt that the patient has progressive multifa ctorial leukoencephalopathy. The patient will get dialyzed later today after PermCath has been place d by Dr. Mick Willis. I did speak to him regarding placement. The patient is probably going to get Cytoxan tomorrow by Dr. Padron as empiric treatment for his malignancy. The patient's cultures have b een negative. I did speak at length to the patient's father yesterday evening to give him an update. He understands the prognosis. I gave the patient's parents support, answered questions this brigette gomez Ottoniel Marinelli MD cc: [id number] TT: 02/04/2017 09:08:24 Confirmation # [id number] Dictation # [id number] en
[2017-02-04 10:13] LABS: HCG TOTAL QUANTITATION 6 mIU/mL (<5)
--- NOTE | 2017-02-04 10:14 | CP.PCM.CON ---
History of Present Illness - History of Present Illness History of Present Illness: Palliative consult requested by Dr Ansley Marinelli Reason: Goals of care 36 year old male with history of ulcerative colitis who presented with abdominal pain, distention and jaundice. Labs; hyperbilirubinemia transaminitis , leukocytosis, UTI, elevated BUN and creatinine. CT scan showed diffuse retroperitoneal lymphadenopathy, multiple liver lesions, moderate ascites, pulmonary vascular congestion, segmental colitis vs neoplastic changes, small pericardial effusion and diffuse bladder wall thickening. PMHx: Downs syndrome, ulcerative colitis large sacral decubiti, GI bleed, anemia , hypothyroidism. Social History: Non smoker, no alcohol or drug use. Lives with parents Advance Care Planning: The patient does not have an Advanced Directive. Review of Systems: As per HPI, all other systems reviewed and are negative Past Patient History - Infectious Disease Hx of Infectious Diseases: None - Tetanus Immunizations Tetanus Immunization: Up to Date - Past Social History Smoking Status: Never Smoked - CARDIAC Hx Pacemaker: No - PULMONARY Hx Respiratory Disorders: No Hx Asthma: No Hx Bronchitis: No Hx Chronic Obstructive Pulmonary Disease (COPD): No Hx Emphysema: No Hx Pneumonia: No Hx Respiratory Aspiration: No Hx Respiratory Tract Infection: No Hx Sleep Apnea: No Hx Tuberculosis: No - NEUROLOGICAL Hx Neurological Disorder: No Hx Alzheimer's Disease: No HX Cerebrovascular Accident: No Hx Dementia: No Hx Dizziness: No Hx Meningitis: No Hx Migraine: No Hx Parkinson's Disease: No Hx Seizures: No Hx Transient Ischemic Attacks (TIA): No Other/Comment: DOWN'S SYNDROME. - HEENT Hx HEENT Problems: Yes Hx Blind: No Hx Cataracts: No Hx Deafness: Yes (BILATERAL HEARING AIDES USED) Hx Difficulty Chewing: No Hx Epistaxis: No Hx Glaucoma: No Hx Macular Degeneration: No - RENAL Hx Chronic Kidney Disease: Yes Hx Dialysis: No Hx Kidney Stones: No Hx Neurogenic Bladder: No Hx Pyelonephritis: No Hx Renal (Kidney) Cancer: No Hx Renal Failure: No Other/Comment: Current kidney infection - ENDOCRINE/METABOLIC Hx Hypothyroidism: Yes - HEMATOLOGICAL/ONCOLOGICAL Hx Blood Disorders: Yes Hx AIDS: No Hx Anemia: Yes (IRON INFUSIONS WEEKLY THURSDAYS) Hx Cancer: No Hx Chemotherapy: No Hx Cirrhosis: No Hx Hepatitis A: No Hx Hepatitis B: No Hx Hepatitis C: No Hx Metastesis: No Hx Shingles: No Hx Unexplained Bleeding: No - INTEGUMENTARY Hx Dermatological Problems: Yes (LARGE GAPING WOUND IN BETWEEN BUTTOCKS.7.5 CM IN LENGTH.) Hx Basil Cell: No Hx Eczema: No Hx Melanoma: No Hx Psoriasis: No Hx Squamous Cell: No - MUSCULOSKELETAL/RHEUMATOLOGICAL Hx Falls: No - GASTROINTESTINAL Hx Gastrointestinal Disorders: Yes - GENITOURINARY/GYNECOLOGICAL Hx Genitourinary Disorders: No - PSYCHIATRIC Hx Emotional Abuse: No Hx Physical Abuse: No - SURGICAL HISTORY Hx Cardiac Catheterization: No Hx Coronary Stent: No Other/Comment: Pilonidal cyst - ANESTHESIA Hx Anesthesia Reactions: No Hx Malignant Hyperthermia: No Meds Allergies/Adverse Reactions: Allergies Allergy/AdvReac Type Severity Reaction Status Date / Time Sulfa (Sulfonamide Allergy ANAPHYLAXIS Verified 01/30/17 14:11 Antibiotics) - Medications Medications: Current Medications Albumin Human (Albumin Human 25% (12.5 Gm/50 Ml)) 12.5 gm IV DAILY [facility] Stop: 02/06/17 10:46 Last Admin: 02/03/17 18:53 Dose: 12.5 gm Allopurinol (Zyloprim) 100 mg PO DAILY [facility] Last Admin: 02/03/17 09:52 Dose: Not Given Piperacillin Sod/Tazobactam Sod (Zosyn 2.25 Gm In 0.9% 100 Ml) 2.25 gm in 100 mls @ 100 mls/hr IV Q8 [facility] PRN Reason: Protocol Stop: 02/12/17 22:01 Last Admin: 02/04/17 05:10 Dose: 100 mls/hr Vancomycin HCl (Vancomycin 1gm) 1 gm in 250 mls @ 167 mls/hr IVPB STAT STA PRN Reason: Protocol Stop: 02/04/17 11:26 Midodrine (Proamatine) 10 mg PO TID [facility] Last Admin: 02/03/17 17:31 Dose: 10 mg Morphine Sulfate (Morphine) 4 mg IVP Q4H PRN PRN Reason: Pain, severe (8-10) Last Admin: 01/31/17 09:30 Dose: 4 mg Morphine Sulfate (Morphine) 2 mg IVP Q3H PRN PRN Reason: Pain, moderate (4-7) Last Admin: 02/04/17 08:11 Dose: 2 mg Octreotide Acetate (Sandostatin) 100 mcg SC TID [facility] Stop: 02/06/17 14:01 Last Admin: 06/22/17 18:53 Dose: 100 mcg Ondansetron HCl (Zofran Inj) 4 mg IVP Q4H PRN PRN Reason: Nausea/Vomiting Last Admin: 02/02/17 16:58 Dose: 4 mg Phytonadione (Vitamin K Inj) 10 mg SC DAILY [facility] Last Admin: 02/03/17 17:31 Dose: 10 mg Polyethylene Glycol (Miralax) 17 gm PO DAILY [facility] Last Admin: 02/03/17 09:52 Dose: Not Given Physical Exam - Constitutional Appears: Chronically Ill - Head Exam Head Exam: NORMOCEPHALIC - Eye Exam Eye Exam: Normal appearance, PERRL - ENT Exam ENT Exam: Mucous Membranes Moist, Normal Oropharynx - Respiratory Exam Respiratory Exam: Decreased Breath Sounds, NORMAL BREATHING PATTERN - Cardiovascular Exam Cardiovascular Exam: Tachycardia, +S1, +S2 - GI/Abdominal Exam GI & Abdominal Exam: Distended, Normal Bowel Sounds, Tenderness - Extremities Exam Extremities exam: Positive for: full ROM, pedal pulses present - Back Exam Additional comments: large sacral decubiti - Neurological Exam Neurological exam: Alert - Skin Skin Exam: Dry, Pallor Additional comments: jaundice Results - Vital Signs Recent Vital Signs: Last Vital Signs Temp 98.1 F 02/04/17 05:00 Pulse 76 02/04/17 07:40 Resp 35 H 02/04/17 07:40 BP 99/63 L 02/04/17 06:00 Pulse Ox 93 L 02/04/17 07:40 - Labs Result Diagrams: 02/04/17 06:00 02/04/17 06:00 Labs: Laboratory Results - last 24 hr 02/01/17 02/03/17 02/03/17 06:20 10:00 19:50 WBC RBC Hgb Hct MCV MCH MCHC RDW Plt Count MPV Gran % Lymph % (Auto) Loup % (Auto) Eos % (Auto) Baso % (Auto) Gran # Lymph # Loup # Eos # Baso # PT 25.3 H INR 2.34 H Sodium Potassium Chloride Carbon Dioxide Anion Gap BUN Creatinine Est GFR ( Amer) Est GFR (Non-Af Amer) POC Glucose (mg/dL) 68 Random Glucose Calcium Phosphorus Magnesium Total Bilirubin AST ALT Alkaline Phosphatase Total Protein Albumin Globulin Albumin/Globulin Ratio BCR/abl Source Blood BCR/abl Prior Result Not given BCR/abl Interpretation See note BCR/abl1 to abl1 % 0.000 BCR/abl1 to abl1 IS % 0.000 BCR/abl1 Mnr (p190) Res Not detected BCR/abl1 Mjr (p210) Res Not detected Blood Type Antibody Screen Crossmatch BBK History Checked 02/03/17 02/03/17 02/04/17 21:48 23:00 00:04 WBC RBC Hgb Hct MCV MCH MCHC RDW Plt Count MPV Gran % Lymph % (Auto) L[place] % (Auto) Eos % (Auto) Baso % (Auto) Gran # Lymph # Loup # Eos # Baso # PT INR Sodium Potassium Chloride Carbon Dioxide Anion Gap BUN Creatinine Est GFR ( Amer) Est GFR (Non-Af Amer) POC Glucose (mg/dL) 73 94 Random Glucose Calcium Phosphorus Magnesium Total Bilirubin AST ALT Alkaline Phosphatase Total Protein Albumin Globulin Albumin/Globulin Ratio BCR/abl Source BCR/abl Prior Result BCR/abl Interpretation BCR/abl1 to abl1 % BCR/abl1 to abl1 IS % BCR/abl1 Mnr (p190) Res BCR/abl1 Mjr (p210) Res Blood Type A POSITIVE Antibody Screen Negative Crossmatch See Detail BBK History Checked Patient has bt 02/04/17 02/04/17 02/04/17 01:45 04:04 05:52 WBC RBC Hgb Hct MCV MCH MCHC RDW Plt Count MPV Gran % Lymph % (Auto) Loup % (Auto) Eos % (Auto) Baso % (Auto) Gran # Lymph # Loup # Eos # Baso # PT INR Sodium Potassium Chloride Carbon Dioxide Anion Gap BUN Creatinine Est GFR ( Amer) Est GFR (Non-Af Amer) POC Glucose (mg/dL) 92 79 89 Random Glucose Calcium Phosphorus Magnesium Total Bilirubin AST ALT Alkaline Phosphatase Total Protein Albumin Globulin Albumin/Globulin Ratio BCR/abl Source BCR/abl Prior Result BCR/abl Interpretation BCR/abl1 to abl1 % BCR/abl1 to abl1 IS % BCR/abl1 Mnr (p190) Res BCR/abl1 Mjr (p210) Res Blood Type Antibody Screen Crossmatch BBK History Checked 02/04/17 02/04/17 02/04/17 06:00 06:00 06:00 WBC 41.0 H* RBC 3.46 L Hgb 11.4 L Hct 33.4 L MCV 96.5 MCH 32.9 MCHC 34.1 RDW 15.8 H Plt Count 75 L MPV 13.0 H Gran % 81.9 H Lymph % (Auto) 2.4 L Loup % (Auto) 4.5 Eos % (Auto) 10.8 H Baso % (Auto) 0.4 Gran # 33.54 H Lymph # 1.0 L Loup # 1.8 H Eos # 4.4 H Baso # 0.18 PT 19.7 H INR 1.82 H Sodium 134 Potassium 4.5 Chloride 103 Carbon Dioxide 17 L Anion Gap 19 BUN 60 H Creatinine 6.1 H Est GFR ( Amer) 13 Est GFR (Non-Af Amer) 11 POC Glucose (mg/dL) Random Glucose 70 Calcium 8.2 L Phosphorus 6.2 H Magnesium 1.9 Total Bilirubin 22.1 H* AST 57 ALT 60 H Alkaline Phosphatase 467 H Total Protein 6.7 Albumin 2.9 L Globulin 3.8 Albumin/Globulin Ratio 0.8 L BCR/abl Source BCR/abl Prior Result BCR/abl Interpretation BCR/abl1 to abl1 % BCR/abl1 to abl1 IS % BCR/abl1 Mnr (p190) Res BCR/abl1 Mjr (p210) Res Blood Type Antibody Screen Crossmatch BBK History Checked Assessment & Plan - Assessment and Plan (Free Text) Assessment: 36 year old male with history of Downs syndrome and ulcerative colitis now admitted with abdominal pain, jaundice,ascites, NIKITA and likely neoplastic disorder. The patient has been given pain medication so he is lethargic. He is jaundiced. He is in no acute distress. Patient's mother at bedside. Palliative services introduced as an additional support system for patient and family. I asked if patient had an Advance Directive. Mother states that he does not. Offered to discuss planning with her and her . She is appreciative but not ready to discuss at this time. Psychosocial support given. Plan: Will follow and assist with establishing future goals of care
[2017-02-04] MEDS ORDERED: Phytonadione 10 mg/ml Inj (Adult) ONE (10:29)
[2017-02-04] MEDS ORDERED: Vancomycin 1gm in NS 250ml 1 GM/250 ML BAG IVPB ONE (10:31)
[2017-02-04] MEDS ORDERED: POLYETHYLENE GLYCOL 3350 17 GM/Dose PACKET ONE (10:31)
--- NOTE | 2017-02-04 10:34 | PN ---
DATE: 02/04/2017 The patient is in bed, in no acute distress, nontoxic. PHYSICAL EXAMINATION: VITAL SIGNS: Temperature is 98, blood pressure is 99/60, respiratory rate of 18. HEENT: Unremarkable. NECK: Supple. LUNGS: Have decreased breath sounds. HEART: Normal S1, S2. ABDOMEN: Soft, nontender. LABORATORY EXAMINATION: Reveals a white count of 41,000, hemoglobin of 11. Chemistries are noted, B UN is 60, creatinine of 6.1. Urinalysis is noted. Microbiology reveals the patient's cultures are n egative. Review of orders reveals the patient to be on Zosyn. note is reviewed. Dr. Busby's note is reviewed, consultation. MRCP results are reviewed. No pancreatic duct dilatation is observed. The re is a pancreatic head mass again with confluent adenopathy. Dr. Padron's note is also reviewed. 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 Currently on Zosyn. Will give 1 dose of vancomycin. Niranjan Higginbotham MD cc: [id number] TT: 02/04/2017 10:33:38 Confirmation # [id number] Dictation # [id number] en
[2017-02-04] MEDS: POLYETHYLENE GLYCOL 3350 17 GM/Dose PACKET PO SCH (10:58)
[2017-02-04] MEDS: Phytonadione 10 mg/ml Inj (Adult) SC SCH (10:59)
[2017-02-04] MEDS ORDERED: Lidocaine 2% Inj (20ml) ONE (11:02)
[2017-02-04] MEDS ORDERED: Iodixanol 320 MG/ML 100 ML BOTTLE IV ONE (11:02)
[2017-02-04] MEDS ORDERED: Heparin 2,000 ML IV ONE (11:02)
[2017-02-04] MEDS ORDERED: Morphine 2 mg/ml ISec ONE (11:20)
[2017-02-04] MEDS ORDERED: Albumin Human 25% (12.5 gm/50 ml) IV STA (12:06)
[2017-02-04] MEDS ORDERED: Naloxone 0.4 mg/ml Inj (Adult) IVP ONE (12:07)
[2017-02-04] MEDS ORDERED: Naloxone 0.4 mg/ml Inj (Adult) ONE (12:12)
--- NOTE | 2017-02-04 12:15 | RAD ---
HISTORY: sob COMPARISON: 10/12/2016 FINDINGS: LUNGS: Bilateral pulmonary infiltrates. There is infiltrate seen in the left base and infrahilar region. There is ill-defined infiltrate in the upper right rene thorax, likely right upper lobe. Possible bilateral pneumonia. Followup advised. PLEURA: No significant pleural effusion identified, no pneumothorax apparent. CARDIOVASCULAR: Normal heart size. Mild congestive change. OSSEOUS STRUCTURES: No significant abnormalities. VISUALIZED UPPER ABDOMEN: Normal. OTHER FINDINGS: None. IMPRESSION: Bilateral infiltrates, left greater than right. Mild congestive change. Possible bilateral pneumonia. Rule out pulmonary edema. No pleural effusion.
[2017-02-04] MEDS ORDERED: Midazolam 2 MG/2 ML VIAL ONE ×2 (12:19→13:27)
[2017-02-04] MEDS: Albumin Human 25% (12.5 gm/50 ml) IV SCH ×2 (12:32→15:54)
--- NOTE | 2017-02-04 12:48 | CP.CCUPN ---
<Missy Kendrick - Last Filed: 02/04/17 13:52> CCU Subjective - Physician Review Subjective (Free Text): 02/04/17 13:33 No acute complaint in AM. BP from 100s to 80s and lethargic after morphin for pain. Narcan given. BP and mentation improve. Pt transfer to [facility] with FFP/Plt/albumen CCU Objective - Vital Signs / Intake & Output Vital Signs (Last 4 hours): Vital Signs Temp Pulse Resp BP Pulse Ox 02/04/17 11:30 80 22 94 L 02/04/17 11:20 83 19 91 L 02/04/17 11:15 80 99/48 L 89 L 02/04/17 11:10 75 16 95/48 L 91 L 02/04/17 11:00 97.5 F L 86 23 91/69 L 94 L 02/04/17 10:50 88 17 95 02/04/17 10:45 91 H 20 96/53 L 94 L 02/04/17 10:40 93 H 19 92 L 02/04/17 10:30 90 13 90 L 02/04/17 10:20 92 H 17 91 L 02/04/17 10:10 92 H 16 89 L 02/04/17 10:08 93 H 14 90 L Intake and Output (Last 8hrs): Intake & Output 02/03/17 02/04/17 02/04/17 22:59 06:59 14:59 Intake Total 1470 Output Total 30 Balance 1440 Weight 251 lb 14.4 oz Intake: IV 1100 Left Hand 1100 Oral 50 Blood Product 320 Output: Urine 30 Urine, Voided 30 Other: Voiding Method Urinal Urinal # Bowel Movements 0 - Physical Exam Head: Positive for: Atraumatic, Normocephalic Pupils: Positive for: PERRL Extroacular Muscles: Positive for: EOMI Conjunctiva: Positive for: Normal, Icteric Mouth: Positive for: Moist Mucous Membranes Neck: Positive for: Normal Range of Motion Respiratory/Chest: Positive for: Clear to Auscultation, Good Air Exchange. Negative for: Respiratory Distress, Accessory Muscle Use Cardiovascular: Positive for: Regular Rate and Rhythm, Normal S1, S2. Negative for: Murmurs Abdomen: Positive for: Tenderness (diffuse, nonfocal), Normal Bowel Sounds. Negative for: Distention, Peritoneal Signs, Rebound, Guarding Back: Positive for: Normal Inspection Upper Extremity: Positive for: Normal Inspection. Negative for: Cyanosis, Edema Lower Extremity: Positive for: Normal Inspection. Negative for: Edema Neurological: Positive for: GCS=15, CN II-XII Intact, Speech Normal. Negative for: Other (focal deficits) Skin: Positive for: Warm, Dry, Pale. Negative for: Rashes Psychiatric: Positive for: Alert, Oriented x 3, Normal Insight, Normal Concentration - Medications Active Medications: Active Medications Generic Name Dose Route Start Last Admin Trade Name Freq PRN Reason Stop Dose Admin Albumin Human 12.5 gm 02/03/17 10:45 02/04/17 12:32 Albumin Human 25% (12.5 Gm/50 Ml) IV 02/06/17 10:46 Not Given DAILY IVAN Allopurinol 100 mg 02/01/17 11:00 02/04/17 10:35 Zyloprim PO 100 mg DAILY IVAN Administration Piperacillin Sod/Tazobactam Sod 2.25 gm in 100 mls @ 100 mls/hr 02/03/17 22: 00 02/04/17 05:10 Zosyn 2.25 Gm In 0.9% 100 Ml IV 02/12/17 22:01 100 mls/hr Q8 IVAN Administration Protocol Midodrine 10 mg 02/03/17 14:00 02/04/17 10:36 Proamatine PO 10 mg TID IVAN Administration Morphine Sulfate 4 mg 01/31/17 09:07 01/31/17 09:30 Morphine IVP 4 mg Q4H PRN Administration Pain, severe (8-10) Morphine Sulfate 2 mg 02/01/17 18:58 02/04/17 11:20 Morphine IVP 2 mg Q3H PRN Administration Pain, moderate (4-7) Octreotide Acetate 100 mcg 02/03/17 14:00 02/04/17 10:58 Sandostatin SC 02/06/17 14:01 100 mcg TID IVAN Administration Ondansetron HCl 4 mg 02/01/17 13:01 02/02/17 16:58 Zofran Inj IVP 4 mg Q4H PRN Administration Nausea/Vomiting Phytonadione 10 mg 02/03/17 12:45 02/04/17 10:59 Vitamin K Inj SC 10 mg DAILY IVAN Administration Polyethylene Glycol 17 gm 02/02/17 10:45 02/04/17 10:58 Miralax PO Not Given DAILY IVAN - Patient Studies Lab Studies: Microbiology Studies 01/31/17 18:49 Gram Stain - Final Other: Please Indicate Body Fluid Culture - Final No growth. Lab Studies 02/04/17 02/04/17 02/04/17 Range/Units 12:23 06:00 06:00 WBC (4.5-11.0) 10^3/ul RBC (3.5-6.1) 10^6/uL Hgb (14.0-18.0) gm/dL Hct (42.0-52.0) % MCV (80.0-105.0) fL MCH (25.0-35.0) pg MCHC (31.0-37.0) g/dl RDW (11.5-14.5) % Plt Count (120.0-450.0) 10^3/uL MPV (7.0-11.0) fl Gran % (50.0-68.0) % Lymph % (Auto) (22.0-35.0) % [place] % (Auto) (1.0-6.0) % Eos % (Auto) (1.5-5.0) % Baso % (Auto) (0.0-3.0) % Gran # (1.4-6.5) Lymph # (1.2-3.4) [place] # (0.1-0.6) Eos # (0.0-0.7) Baso # (0.0-2.0) K/mm3 PT 19.7 H (9.9-11.8) Seconds INR 1.82 H (0.93-1.08) Sodium 134 (132-148) mmol/L Potassium 4.5 (3.6-5.0) mmol/L Chloride 103 (98-107) mmol/L Carbon Dioxide 17 L (21-33) mmol/L Anion Gap 19 (10-20) BUN 60 H (7-21) mg/dL Creatinine 6.1 H (0.5-1.4) mg/dL Est GFR ( Amer) 13 Est GFR (Non-Af Amer) 11 POC Glucose (mg/dL) 72 (65-110) mg/dL Random Glucose 70 (70-110) mg/dL Calcium 8.2 L (8.4-10.5) mg/dL Phosphorus 6.2 H (2.5-4.5) mg/dL Magnesium 1.9 (1.7-2.2) mg/dL Total Bilirubin 22.1 H* (0.2-1.3) mg/dL AST 57 (15-59) U/L ALT 60 H (7-56) U/L Alkaline Phosphatase 467 H (38-133) U/L Total Protein 6.7 (5.8-8.3) g/dL Albumin 2.9 L (3.0-4.8) g/dL Globulin 3.8 gm/dL Albumin/Globulin Ratio 0.8 L (1.1-1.8) Total Beta HCG (<5) mIU/mL BCR/abl Source BCR/abl Prior Result BCR/abl Interpretation BCR/abl1 to abl1 % (0.000) BCR/abl1 to abl1 IS % (0.000) BCR/abl1 Mnr (p190) Res BCR/abl1 Mjr (p210) Res Blood Type Antibody Screen Crossmatch BBK History Checked 02/04/17 02/04/17 02/04/17 Range/Units 06:00 05:52 04:04 WBC 41.0 H* (4.5-11.0) 10^3/ul RBC 3.46 L (3.5-6.1) 10^6/uL Hgb 11.4 L (14.0-18.0) gm/dL Hct 33.4 L (42.0-52.0) % MCV 96.5 (80.0-105.0) fL MCH 32.9 (25.0-35.0) pg MCHC 34.1 (31.0-37.0) g/dl RDW 15.8 H (11.5-14.5) % Plt Count 75 L (120.0-450.0) 10^3/uL MPV 13.0 H (7.0-11.0) fl Gran % 81.9 H (50.0-68.0) % Lymph % (Auto) 2.4 L (22.0-35.0) % [place] % (Auto) 4.5 (1.0-6.0) % Eos % (Auto) 10.8 H (1.5-5.0) % Baso % (Auto) 0.4 (0.0-3.0) % Gran # 33.54 H (1.4-6.5) Lymph # 1.0 L (1.2-3.4) [place] # 1.8 H (0.1-0.6) Eos # 4.4 H (0.0-0.7) Baso # 0.18 (0.0-2.0) K/mm3 PT (9.9-11.8) Seconds INR (0.93-1.08) Sodium (132-148) mmol/L Potassium (3.6-5.0) mmol/L Chloride (98-107) mmol/L Carbon Dioxide (21-33) mmol/L Anion Gap (10-20) BUN (7-21) mg/dL Creatinine (0.5-1.4) mg/dL Est GFR ( Amer) Est GFR (Non-Af Amer) POC Glucose (mg/dL) 89 79 (65-110) mg/dL Random Glucose (70-110) mg/dL Calcium (8.4-10.5) mg/dL Phosphorus (2.5-4.5) mg/dL Magnesium (1.7-2.2) mg/dL Total Bilirubin (0.2-1.3) mg/dL AST (15-59) U/L ALT (7-56) U/L Alkaline Phosphatase (38-133) U/L Total Protein (5.8-8.3) g/dL Albumin (3.0-4.8) g/dL Globulin gm/dL Albumin/Globulin Ratio (1.1-1.8) Total Beta HCG (<5) mIU/mL BCR/abl Source BCR/abl Prior Result BCR/abl Interpretation BCR/abl1 to abl1 % (0.000) BCR/abl1 to abl1 IS % (0.000) BCR/abl1 Mnr (p190) Res BCR/abl1 Mjr (p210) Res Blood Type Antibody Screen Crossmatch BBK History Checked 02/04/17 02/04/17 02/03/17 Range/Units 01:45 00:04 23:00 WBC (4.5-11.0) 10^3/ul RBC (3.5-6.1) 10^6/uL Hgb (14.0-18.0) gm/dL Hct (42.0-52.0) % MCV (80.0-105.0) fL MCH (25.0-35.0) pg MCHC (31.0-37.0) g/dl RDW (11.5-14.5) % Plt Count (120.0-450.0) 10^3/uL MPV (7.0-11.0) fl Gran % (50.0-68.0) % Lymph % (Auto) (22.0-35.0) % [place] % (Auto) (1.0-6.0) % Eos % (Auto) (1.5-5.0) % Baso % (Auto) (0.0-3.0) % Gran # (1.4-6.5) Lymph # (1.2-3.4) [place] # (0.1-0.6) Eos # (0.0-0.7) Baso # (0.0-2.0) K/mm3 PT (9.9-11.8) Seconds INR (0.93-1.08) Sodium (132-148) mmol/L Potassium (3.6-5.0) mmol/L Chloride (98-107) mmol/L Carbon Dioxide (21-33) mmol/L Anion Gap (10-20) BUN (7-21) mg/dL Creatinine (0.5-1.4) mg/dL Est GFR ( Amer) Est GFR (Non-Af Amer) POC Glucose (mg/dL) 92 94 (65-110) mg/dL Random Glucose (70-110) mg/dL Calcium (8.4-10.5) mg/dL Phosphorus (2.5-4.5) mg/dL Magnesium (1.7-2.2) mg/dL Total Bilirubin (0.2-1.3) mg/dL AST (15-59) U/L ALT (7-56) U/L Alkaline Phosphatase (38-133) U/L Total Protein (5.8-8.3) g/dL Albumin (3.0-4.8) g/dL Globulin gm/dL Albumin/Globulin Ratio (1.1-1.8) Total Beta HCG (<5) mIU/mL BCR/abl Source BCR/abl Prior Result BCR/abl Interpretation BCR/abl1 to abl1 % (0.000) BCR/abl1 to abl1 IS % (0.000) BCR/abl1 Mnr (p190) Res BCR/abl1 Mjr (p210) Res Blood Type A POSITIVE Antibody Screen Negative Crossmatch See Detail BBK History Checked Patient has bt 02/03/17 02/03/17 02/03/17 Range/Units 21:48 19:50 06:45 WBC (4.5-11.0) 10^3/ul RBC (3.5-6.1) 10^6/uL Hgb (14.0-18.0) gm/dL Hct (42.0-52.0) % MCV (80.0-105.0) fL MCH (25.0-35.0) pg MCHC (31.0-37.0) g/dl RDW (11.5-14.5) % Plt Count (120.0-450.0) 10^3/uL MPV (7.0-11.0) fl Gran % (50.0-68.0) % Lymph % (Auto) (22.0-35.0) % [place] % (Auto) (1.0-6.0) % Eos % (Auto) (1.5-5.0) % Baso % (Auto) (0.0-3.0) % Gran # (1.4-6.5) Lymph # (1.2-3.4) [place] # (0.1-0.6) Eos # (0.0-0.7) Baso # (0.0-2.0) K/mm3 PT (9.9-11.8) Seconds INR (0.93-1.08) Sodium (132-148) mmol/L Potassium (3.6-5.0) mmol/L Chloride (98-107) mmol/L Carbon Dioxide (21-33) mmol/L Anion Gap (10-20) BUN (7-21) mg/dL Creatinine (0.5-1.4) mg/dL Est GFR ( Amer) Est GFR (Non-Af Amer) POC Glucose (mg/dL) 73 68 (65-110) mg/dL Random Glucose (70-110) mg/dL Calcium (8.4-10.5) mg/dL Phosphorus (2.5-4.5) mg/dL Magnesium (1.7-2.2) mg/dL Total Bilirubin (0.2-1.3) mg/dL AST (15-59) U/L ALT (7-56) U/L Alkaline Phosphatase (38-133) U/L Total Protein (5.8-8.3) g/dL Albumin (3.0-4.8) g/dL Globulin gm/dL Albumin/Globulin Ratio (1.1-1.8) Total Beta HCG 6 H (<5) mIU/mL BCR/abl Source BCR/abl Prior Result BCR/abl Interpretation BCR/abl1 to abl1 % (0.000) BCR/abl1 to abl1 IS % (0.000) BCR/abl1 Mnr (p190) Res BCR/abl1 Mjr (p210) Res Blood Type Antibody Screen Crossmatch BBK History Checked 02/01/17 Range/Units 06:20 WBC (4.5-11.0) 10^3/ul RBC (3.5-6.1) 10^6/uL Hgb (14.0-18.0) gm/dL Hct (42.0-52.0) % MCV (80.0-105.0) fL MCH (25.0-35.0) pg MCHC (31.0-37.0) g/dl RDW (11.5-14.5) % Plt Count (120.0-450.0) 10^3/uL MPV (7.0-11.0) fl Gran % (50.0-68.0) % Lymph % (Auto) (22.0-35.0) % [place] % (Auto) (1.0-6.0) % Eos % (Auto) (1.5-5.0) % Baso % (Auto) (0.0-3.0) % Gran # (1.4-6.5) Lymph # (1.2-3.4) [place] # (0.1-0.6) Eos # (0.0-0.7) Baso # (0.0-2.0) K/mm3 PT (9.9-11.8) Seconds INR (0.93-1.08) Sodium (132-148) mmol/L Potassium (3.6-5.0) mmol/L Chloride (98-107) mmol/L Carbon Dioxide (21-33) mmol/L Anion Gap (10-20) BUN (7-21) mg/dL Creatinine (0.5-1.4) mg/dL Est GFR ( Amer) Est GFR (Non-Af Amer) POC Glucose (mg/dL) (65-110) mg/dL Random Glucose (70-110) mg/dL Calcium (8.4-10.5) mg/dL Phosphorus (2.5-4.5) mg/dL Magnesium (1.7-2.2) mg/dL Total Bilirubin (0.2-1.3) mg/dL AST (15-59) U/L ALT (7-56) U/L Alkaline Phosphatase (38-133) U/L Total Protein (5.8-8.3) g/dL Albumin (3.0-4.8) g/dL Globulin gm/dL Albumin/Globulin Ratio (1.1-1.8) Total Beta HCG (<5) mIU/mL BCR/abl Source Blood BCR/abl Prior Result Not given BCR/abl Interpretation See note BCR/abl1 to abl1 % 0.000 (0.000) BCR/abl1 to abl1 IS % 0.000 (0.000) BCR/abl1 Mnr (p190) Res Not detected BCR/abl1 Mjr (p210) Res Not detected Blood Type Antibody Screen Crossmatch BBK History Checked Laboratory Results - last 24 hr 02/01/17 02/03/17 02/03/17 06:20 06:45 19:50 WBC RBC Hgb Hct MCV MCH MCHC RDW Plt Count MPV Gran % Lymph % (Auto) [place] % (Auto) Eos % (Auto) Baso % (Auto) Gran # Lymph # [place] # Eos # Baso # PT INR Sodium Potassium Chloride Carbon Dioxide Anion Gap BUN Creatinine Est GFR ( Amer) Est GFR (Non-Af Amer) POC Glucose (mg/dL) 68 Random Glucose Calcium Phosphorus Magnesium Total Bilirubin AST ALT Alkaline Phosphatase Total Protein Albumin Globulin Albumin/Globulin Ratio Total Beta HCG 6 H BCR/abl Source Blood BCR/abl Prior Result Not given BCR/abl Interpretation See note BCR/abl1 to abl1 % 0.000 BCR/abl1 to abl1 IS % 0.000 BCR/abl1 Mnr (p190) Res Not detected BCR/abl1 Mjr (p210) Res Not detected Blood Type Antibody Screen Crossmatch BBK History Checked 02/03/17 02/03/17 02/04/17 21:48 23:00 00:04 WBC RBC Hgb Hct MCV MCH MCHC RDW Plt Count MPV Gran % Lymph % (Auto) [place] % (Auto) Eos % (Auto) Baso % (Auto) Gran # Lymph # [place] # Eos # Baso # PT INR Sodium Potassium Chloride Carbon Dioxide Anion Gap BUN Creatinine Est GFR ( Amer) Est GFR (Non-Af Amer) POC Glucose (mg/dL) 73 94 Random Glucose Calcium Phosphorus Magnesium Total Bilirubin AST ALT Alkaline Phosphatase Total Protein Albumin Globulin Albumin/Globulin Ratio Total Beta HCG BCR/abl Source BCR/abl Prior Result BCR/abl Interpretation BCR/abl1 to abl1 % BCR/abl1 to abl1 IS % BCR/abl1 Mnr (p190) Res BCR/abl1 Mjr (p210) Res Blood Type A POSITIVE Antibody Screen Negative Crossmatch See Detail BBK History Checked Patient has bt 02/04/17 02/04/17 02/04/17 01:45 04:04 05:52 WBC RBC Hgb Hct MCV MCH MCHC RDW Plt Count MPV Gran % Lymph % (Auto) [place] % (Auto) Eos % (Auto) Baso % (Auto) Gran # Lymph # [place] # Eos # Baso # PT INR Sodium Potassium Chloride Carbon Dioxide Anion Gap BUN Creatinine Est GFR ( Amer) Est GFR (Non-Af Amer) POC Glucose (mg/dL) 92 79 89 Random Glucose Calcium Phosphorus Magnesium Total Bilirubin AST ALT Alkaline Phosphatase Total Protein Albumin Globulin Albumin/Globulin Ratio Total Beta HCG BCR/abl Source BCR/abl Prior Result BCR/abl Interpretation BCR/abl1 to abl1 % BCR/abl1 to abl1 IS % BCR/abl1 Mnr (p190) Res BCR/abl1 Mjr (p210) Res Blood Type Antibody Screen Crossmatch BBK History Checked 02/04/17 02/04/17 02/04/17 06:00 06:00 06:00 WBC 41.0 H* RBC 3.46 L Hgb 11.4 L Hct 33.4 L MCV 96.5 MCH 32.9 MCHC 34.1 RDW 15.8 H Plt Count 75 L MPV 13.0 H Gran % 81.9 H Lymph % (Auto) 2.4 L [place] % (Auto) 4.5 Eos % (Auto) 10.8 H Baso % (Auto) 0.4 Gran # 33.54 H Lymph # 1.0 L [place] # 1.8 H Eos # 4.4 H Baso # 0.18 PT 19.7 H INR 1.82 H Sodium 134 Potassium 4.5 Chloride 103 Carbon Dioxide 17 L Anion Gap 19 BUN 60 H Creatinine 6.1 H Est GFR ( Amer) 13 Est GFR (Non-Af Amer) 11 POC Glucose (mg/dL) Random Glucose 70 Calcium 8.2 L Phosphorus 6.2 H Magnesium 1.9 Total Bilirubin 22.1 H* AST 57 ALT 60 H Alkaline Phosphatase 467 H Total Protein 6.7 Albumin 2.9 L Globulin 3.8 Albumin/Globulin Ratio 0.8 L Total Beta HCG BCR/abl Source BCR/abl Prior Result BCR/abl Interpretation BCR/abl1 to abl1 % BCR/abl1 to abl1 IS % BCR/abl1 Mnr (p190) Res BCR/abl1 Mjr (p210) Res Blood Type Antibody Screen Crossmatch BBK History Checked 02/04/17 12:23 WBC RBC Hgb Hct MCV MCH MCHC RDW Plt Count MPV Gran % Lymph % (Auto) [place] % (Auto) Eos % (Auto) Baso % (Auto) Gran # Lymph # [place] # Eos # Baso # PT INR Sodium Potassium Chloride Carbon Dioxide Anion Gap BUN Creatinine Est GFR ( Amer) Est GFR (Non-Af Amer) POC Glucose (mg/dL) 72 Random Glucose Calcium Phosphorus Magnesium Total Bilirubin AST ALT Alkaline Phosphatase Total Protein Albumin Globulin Albumin/Globulin Ratio Total Beta HCG BCR/abl Source BCR/abl Prior Result BCR/abl Interpretation BCR/abl1 to abl1 % BCR/abl1 to abl1 IS % BCR/abl1 Mnr (p190) Res BCR/abl1 Mjr (p210) Res Blood Type Antibody Screen Crossmatch BBK History Checked Fingerstick Blood Sugar Results: 72 Critical Care Progress Note - Nutrition Nutrition: Nutrition Category Date Time Status Regular Diet [DIET] Diets 02/03/17 Dinner Ordered Assessment/Plan - Assessment and Plan (Free Text) Plan: A/P: The patient is a 36 year old male with history of hypothyroidism, Down's syndrome and ulcerative colitis who presented 5 days ago with several days of worsening diffuse abdominal pain and distention and jaundice. He was found to have sepsis from uTI, NIKITA and multiple liver lesions suspicious for malignancy. He had a lymph node biopsy (results pending) and an MRCP done yesterday. Patient 's hypoxia seems to resolve after with increased O2 via nasal cannula. Pt had several episodes of hypoglycemia yesterday which required closer monitoring Neuro - decrease pain med due to pt's effect Card - midodrine 10 TID Pulm - requiring 4L O2 nc GI - Liver Lesions suspicious for malignancy - lymph node biopsy results pending - likely cause of coagulopathy and definite cause of patient's jaundice - currently undergoing biliary drain placement/dialysis cath/Picc - f/u GI rec's - Albumin 25% 12.5gram qd - octreotide 100 TID - Vitamin K 10 SC qd - After catheter placement, will start 1st HD - hold IVF's per nephrology rec's - strict I/O's - f/u nephro rec's Endo - allopurinol Heme - - Tranfuse FFP 1 unit and plt before procedure ID - [id number] Prophylaxis - Protonix - SCD s/r/d/w Dr Rizvi - Date & Time Date: 02/04/17 Time: 13:39 <Dmitri AVINA,[facility] - Last Filed: 02/04/17 15:11> CCU Objective - Vital Signs / Intake & Output Vital Signs (Last 4 hours): Vital Signs Pulse Resp BP Pulse Ox 02/04/17 12:25 101/66 02/04/17 12:24 93 L 02/04/17 12:20 95 H 35 H 93 L 02/04/17 12:16 75 28 H 86/36 L 95 02/04/17 12:15 77 24 85/42 L 96 02/04/17 12:14 89 38 H 76/31 L 96 02/04/17 12:13 86 21 81/34 L 94 L 02/04/17 12:10 85 13 94 L 02/04/17 12:00 83 16 87/40 L 94 L 02/04/17 11:58 89 18 83/47 L 94 L 02/04/17 11:57 88 17 81/43 L 93 L 02/04/17 11:56 85 17 79/48 L 94 L 02/04/17 11:50 86 14 95 02/04/17 11:45 90 25 H 82/58 L 94 L 02/04/17 11:40 80 19 93 L 02/04/17 11:30 85 35 H 94 L 02/04/17 11:20 83 19 91 L 02/04/17 11:15 80 99/48 L 89 L 02/04/17 11:10 75 16 95/48 L 91 L Intake and Output (Last 8hrs): Intake & Output 02/04/17 02/04/17 02/04/17 06:59 14:59 22:59 Intake Total 1470 Output Total 30 Balance 1440 Weight 251 lb 14.4 oz Intake: IV 1100 Left Hand 1100 Oral 50 Blood Product 320 Output: Urine 30 Urine, Voided 30 Other: Voiding Method Urinal Urinal # Bowel Movements 0 - Medications Active Medications: Active Medications Generic Name Dose Route Start Last Admin Trade Name Freq PRN Reason Stop Dose Admin Albumin Human 12.5 gm 02/03/17 10:45 02/04/17 12:32 Albumin Human 25% (12.5 Gm/50 Ml) IV 02/06/17 10:46 Not Given DAILY IVAN Allopurinol 100 mg 02/01/17 11:00 02/04/17 10:35 Zyloprim PO 100 mg DAILY IVAN Administration Camphor/Menthol 0 gm 02/04/17 18:00 [place] TOP TID IVAN Piperacillin Sod/Tazobactam Sod 2.25 gm in 100 mls @ 100 mls/hr 02/03/17 22: 00 02/04/17 05:10 Zosyn 2.25 Gm In 0.9% 100 Ml IV 02/12/17 22:01 100 mls/hr Q8 IVAN Administration Protocol Midodrine 10 mg 02/03/17 14:00 02/04/17 10:36 Proamatine PO 10 mg TID IVAN Administration Morphine Sulfate 1 mg 02/04/17 13:56 Morphine IVP Q3H PRN Pain, moderate (4-7) Morphine Sulfate 2 mg 02/04/17 14:05 Morphine IVP Q4 PRN Pain, severe (8-10) Octreotide Acetate 100 mcg 02/03/17 14:00 02/04/17 10:58 Sandostatin SC 02/06/17 14:01 100 mcg TID IVAN Administration Ondansetron HCl 4 mg 02/01/17 13:01 02/02/17 16:58 Zofran Inj IVP 4 mg Q4H PRN Administration Nausea/Vomiting Phytonadione 10 mg 02/03/17 12:45 02/04/17 10:59 Vitamin K Inj SC 10 mg DAILY IVAN Administration Polyethylene Glycol 17 gm 02/02/17 10:45 02/04/17 10:58 Miralax PO Not Given DAILY IVAN - Patient Studies Lab Studies: Microbiology Studies 01/31/17 18:49 Gram Stain - Final Other: Please Indicate Body Fluid Culture - Final No growth. Lab Studies 02/04/17 02/04/17 02/04/17 Range/Units 12:23 06:00 06:00 WBC (4.5-11.0) 10^3/ul RBC (3.5-6.1) 10^6/uL Hgb (14.0-18.0) gm/dL Hct (42.0-52.0) % MCV (80.0-105.0) fL MCH (25.0-35.0) pg MCHC (31.0-37.0) g/dl RDW (11.5-14.5) % Plt Count (120.0-450.0) 10^3/uL MPV (7.0-11.0) fl Gran % (50.0-68.0) % Lymph % (Auto) (22.0-35.0) % [place] % (Auto) (1.0-6.0) % Eos % (Auto) (1.5-5.0) % Baso % (Auto) (0.0-3.0) % Gran # (1.4-6.5) Lymph # (1.2-3.4) [place] # (0.1-0.6) Eos # (0.0-0.7) Baso # (0.0-2.0) K/mm3 PT 19.7 H (9.9-11.8) Seconds INR 1.82 H (0.93-1.08) Sodium 134 (132-148) mmol/L Potassium 4.5 (3.6-5.0) mmol/L Chloride 103 (98-107) mmol/L Carbon Dioxide 17 L (21-33) mmol/L Anion Gap 19 (10-20) BUN 60 H (7-21) mg/dL Creatinine 6.1 H (0.5-1.4) mg/dL Est GFR ( Amer) 13 Est GFR (Non-Af Amer) 11 POC Glucose (mg/dL) 72 (65-110) mg/dL Random Glucose 70 (70-110) mg/dL Calcium 8.2 L (8.4-10.5) mg/dL Phosphorus 6.2 H (2.5-4.5) mg/dL Magnesium 1.9 (1.7-2.2) mg/dL Total Bilirubin 22.1 H* (0.2-1.3) mg/dL AST 57 (15-59) U/L ALT 60 H (7-56) U/L Alkaline Phosphatase 467 H (38-133) U/L Total Protein 6.7 (5.8-8.3) g/dL Albumin 2.9 L (3.0-4.8) g/dL Globulin 3.8 gm/dL Albumin/Globulin Ratio 0.8 L (1.1-1.8) Total Beta HCG (<5) mIU/mL BCR/abl Source BCR/abl Prior Result BCR/abl Interpretation BCR/abl1 to abl1 % (0.000) BCR/abl1 to abl1 IS % (0.000) BCR/abl1 Mnr (p190) Res BCR/abl1 Mjr (p210) Res Blood Type Antibody Screen Crossmatch BBK History Checked 02/04/17 02/04/17 02/04/17 Range/Units 06:00 05:52 04:04 WBC 41.0 H* (4.5-11.0) 10^3/ul RBC 3.46 L (3.5-6.1) 10^6/uL Hgb 11.4 L (14.0-18.0) gm/dL Hct 33.4 L (42.0-52.0) % MCV 96.5 (80.0-105.0) fL MCH 32.9 (25.0-35.0) pg MCHC 34.1 (31.0-37.0) g/dl RDW 15.8 H (11.5-14.5) % Plt Count 75 L (120.0-450.0) 10^3/uL MPV 13.0 H (7.0-11.0) fl Gran % 81.9 H (50.0-68.0) % Lymph % (Auto) 2.4 L (22.0-35.0) % [place] % (Auto) 4.5 (1.0-6.0) % Eos % (Auto) 10.8 H (1.5-5.0) % Baso % (Auto) 0.4 (0.0-3.0) % Gran # 33.54 H (1.4-6.5) Lymph # 1.0 L (1.2-3.4) [place] # 1.8 H (0.1-0.6) Eos # 4.4 H (0.0-0.7) Baso # 0.18 (0.0-2.0) K/mm3 PT (9.9-11.8) Seconds INR (0.93-1.08) Sodium (132-148) mmol/L Potassium (3.6-5.0) mmol/L Chloride (98-107) mmol/L Carbon Dioxide (21-33) mmol/L Anion Gap (10-20) BUN (7-21) mg/dL Creatinine (0.5-1.4) mg/dL Est GFR ( Amer) Est GFR (Non-Af Amer) POC Glucose (mg/dL) 89 79 (65-110) mg/dL Random Glucose (70-110) mg/dL Calcium (8.4-10.5) mg/dL Phosphorus (2.5-4.5) mg/dL Magnesium (1.7-2.2) mg/dL Total Bilirubin (0.2-1.3) mg/dL AST (15-59) U/L ALT (7-56) U/L Alkaline Phosphatase (38-133) U/L Total Protein (5.8-8.3) g/dL Albumin (3.0-4.8) g/dL Globulin gm/dL Albumin/Globulin Ratio (1.1-1.8) Total Beta HCG (<5) mIU/mL BCR/abl Source BCR/abl Prior Result BCR/abl Interpretation BCR/abl1 to abl1 % (0.000) BCR/abl1 to abl1 IS % (0.000) BCR/abl1 Mnr (p190) Res BCR/abl1 Mjr (p210) Res Blood Type Antibody Screen Crossmatch BBK History Checked 02/04/17 02/04/17 02/03/17 Range/Units 01:45 00:04 23:00 WBC (4.5-11.0) 10^3/ul RBC (3.5-6.1) 10^6/uL Hgb (14.0-18.0) gm/dL Hct (42.0-52.0) % MCV (80.0-105.0) fL MCH (25.0-35.0) pg MCHC (31.0-37.0) g/dl RDW (11.5-14.5) % Plt Count (120.0-450.0) 10^3/uL MPV (7.0-11.0) fl Gran % (50.0-68.0) % Lymph % (Auto) (22.0-35.0) % [place] % (Auto) (1.0-6.0) % Eos % (Auto) (1.5-5.0) % Baso % (Auto) (0.0-3.0) % Gran # (1.4-6.5) Lymph # (1.2-3.4) [place] # (0.1-0.6) Eos # (0.0-0.7) Baso # (0.0-2.0) K/mm3 PT (9.9-11.8) Seconds INR (0.93-1.08) Sodium (132-148) mmol/L Potassium (3.6-5.0) mmol/L Chloride (98-107) mmol/L Carbon Dioxide (21-33) mmol/L Anion Gap (10-20) BUN (7-21) mg/dL Creatinine (0.5-1.4) mg/dL Est GFR ( Amer) Est GFR (Non-Af Amer) POC Glucose (mg/dL) 92 94 (65-110) mg/dL Random Glucose (70-110) mg/dL Calcium (8.4-10.5) mg/dL Phosphorus (2.5-4.5) mg/dL Magnesium (1.7-2.2) mg/dL Total Bilirubin (0.2-1.3) mg/dL AST (15-59) U/L ALT (7-56) U/L Alkaline Phosphatase (38-133) U/L Total Protein (5.8-8.3) g/dL Albumin (3.0-4.8) g/dL Globulin gm/dL Albumin/Globulin Ratio (1.1-1.8) Total Beta HCG (<5) mIU/mL BCR/abl Source BCR/abl Prior Result BCR/abl Interpretation BCR/abl1 to abl1 % (0.000) BCR/abl1 to abl1 IS % (0.000) BCR/abl1 Mnr (p190) Res BCR/abl1 Mjr (p210) Res Blood Type A POSITIVE Antibody Screen Negative Crossmatch See Detail BBK History Checked Patient has bt 02/03/17 02/03/17 02/03/17 Range/Units 21:48 19:50 06:45 WBC (4.5-11.0) 10^3/ul RBC (3.5-6.1) 10^6/uL Hgb (14.0-18.0) gm/dL Hct (42.0-52.0) % MCV (80.0-105.0) fL MCH (25.0-35.0) pg MCHC (31.0-37.0) g/dl RDW (11.5-14.5) % Plt Count (120.0-450.0) 10^3/uL MPV (7.0-11.0) fl Gran % (50.0-68.0) % Lymph % (Auto) (22.0-35.0) % [place] % (Auto) (1.0-6.0) % Eos % (Auto) (1.5-5.0) % Baso % (Auto) (0.0-3.0) % Gran # (1.4-6.5) Lymph # (1.2-3.4) [place] # (0.1-0.6) Eos # (0.0-0.7) Baso # (0.0-2.0) K/mm3 PT (9.9-11.8) Seconds INR (0.93-1.08) Sodium (132-148) mmol/L Potassium (3.6-5.0) mmol/L Chloride (98-107) mmol/L Carbon Dioxide (21-33) mmol/L Anion Gap (10-20) BUN (7-21) mg/dL Creatinine (0.5-1.4) mg/dL Est GFR ( Amer) Est GFR (Non-Af Amer) POC Glucose (mg/dL) 73 68 (65-110) mg/dL Random Glucose (70-110) mg/dL Calcium (8.4-10.5) mg/dL Phosphorus (2.5-4.5) mg/dL Magnesium (1.7-2.2) mg/dL Total Bilirubin (0.2-1.3) mg/dL AST (15-59) U/L ALT (7-56) U/L Alkaline Phosphatase (38-133) U/L Total Protein (5.8-8.3) g/dL Albumin (3.0-4.8) g/dL Globulin gm/dL Albumin/Globulin Ratio (1.1-1.8) Total Beta HCG 6 H (<5) mIU/mL BCR/abl Source BCR/abl Prior Result BCR/abl Interpretation BCR/abl1 to abl1 % (0.000) BCR/abl1 to abl1 IS % (0.000) BCR/abl1 Mnr (p190) Res BCR/abl1 Mjr (p210) Res Blood Type Antibody Screen Crossmatch BBK History Checked 02/01/17 Range/Units 06:20 WBC (4.5-11.0) 10^3/ul RBC (3.5-6.1) 10^6/uL Hgb (14.0-18.0) gm/dL Hct (42.0-52.0) % MCV (80.0-105.0) fL MCH (25.0-35.0) pg MCHC (31.0-37.0) g/dl RDW (11.5-14.5) % Plt Count (120.0-450.0) 10^3/uL MPV (7.0-11.0) fl Gran % (50.0-68.0) % Lymph % (Auto) (22.0-35.0) % [place] % (Auto) (1.0-6.0) % Eos % (Auto) (1.5-5.0) % Baso % (Auto) (0.0-3.0) % Gran # (1.4-6.5) Lymph # (1.2-3.4) [place] # (0.1-0.6) Eos # (0.0-0.7) Baso # (0.0-2.0) K/mm3 PT (9.9-11.8) Seconds INR (0.93-1.08) Sodium (132-148) mmol/L Potassium (3.6-5.0) mmol/L Chloride (98-107) mmol/L Carbon Dioxide (21-33) mmol/L Anion Gap (10-20) BUN (7-21) mg/dL Creatinine (0.5-1.4) mg/dL Est GFR ( Amer) Est GFR (Non-Af Amer) POC Glucose (mg/dL) (65-110) mg/dL Random Glucose (70-110) mg/dL Calcium (8.4-10.5) mg/dL Phosphorus (2.5-4.5) mg/dL Magnesium (1.7-2.2) mg/dL Total Bilirubin (0.2-1.3) mg/dL AST (15-59) U/L ALT (7-56) U/L Alkaline Phosphatase (38-133) U/L Total Protein (5.8-8.3) g/dL Albumin (3.0-4.8) g/dL Globulin gm/dL Albumin/Globulin Ratio (1.1-1.8) Total Beta HCG (<5) mIU/mL BCR/abl Source Blood BCR/abl Prior Result Not given BCR/abl Interpretation See note BCR/abl1 to abl1 % 0.000 (0.000) BCR/abl1 to abl1 IS % 0.000 (0.000) BCR/abl1 Mnr (p190) Res Not detected BCR/abl1 Mjr (p210) Res Not detected Blood Type Antibody Screen Crossmatch BBK History Checked Laboratory Results - last 24 hr 02/01/17 02/03/17 02/03/17 06:20 06:45 19:50 WBC RBC Hgb Hct MCV MCH MCHC RDW Plt Count MPV Gran % Lymph % (Auto) [place] % (Auto) Eos % (Auto) Baso % (Auto) Gran # Lymph # [place] # Eos # Baso # PT INR Sodium Potassium Chloride Carbon Dioxide Anion Gap BUN Creatinine Est GFR ( Amer) Est GFR (Non-Af Amer) POC Glucose (mg/dL) 68 Random Glucose Calcium Phosphorus Magnesium Total Bilirubin AST ALT Alkaline Phosphatase Total Protein Albumin Globulin Albumin/Globulin Ratio Total Beta HCG 6 H BCR/abl Source Blood BCR/abl Prior Result Not given BCR/abl Interpretation See note BCR/abl1 to abl1 % 0.000 BCR/abl1 to abl1 IS % 0.000 BCR/abl1 Mnr (p190) Res Not detected BCR/abl1 Mjr (p210) Res Not detected Blood Type Antibody Screen Crossmatch BBK History Checked 02/03/17 02/03/17 02/04/17 21:48 23:00 00:04 WBC RBC Hgb Hct MCV MCH MCHC RDW Plt Count MPV Gran % Lymph % (Auto) [place] % (Auto) Eos % (Auto) Baso % (Auto) Gran # Lymph # [place] # Eos # Baso # PT INR Sodium Potassium Chloride Carbon Dioxide Anion Gap BUN Creatinine Est GFR ( Amer) Est GFR (Non-Af Amer) POC Glucose (mg/dL) 73 94 Random Glucose Calcium Phosphorus Magnesium Total Bilirubin AST ALT Alkaline Phosphatase Total Protein Albumin Globulin Albumin/Globulin Ratio Total Beta HCG BCR/abl Source BCR/abl Prior Result BCR/abl Interpretation BCR/abl1 to abl1 % BCR/abl1 to abl1 IS % BCR/abl1 Mnr (p190) Res BCR/abl1 Mjr (p210) Res Blood Type A POSITIVE Antibody Screen Negative Crossmatch See Detail BBK History Checked Patient has bt 02/04/17 02/04/17 02/04/17 01:45 04:04 05:52 WBC RBC Hgb Hct MCV MCH MCHC RDW Plt Count MPV Gran % Lymph % (Auto) [place] % (Auto) Eos % (Auto) Baso % (Auto) Gran # Lymph # [place] # Eos # Baso # PT INR Sodium Potassium Chloride Carbon Dioxide Anion Gap BUN Creatinine Est GFR ( Amer) Est GFR (Non-Af Amer) POC Glucose (mg/dL) 92 79 89 Random Glucose Calcium Phosphorus Magnesium Total Bilirubin AST ALT Alkaline Phosphatase Total Protein Albumin Globulin Albumin/Globulin Ratio Total Beta HCG BCR/abl Source BCR/abl Prior Result BCR/abl Interpretation BCR/abl1 to abl1 % BCR/abl1 to abl1 IS % BCR/abl1 Mnr (p190) Res BCR/abl1 Mjr (p210) Res Blood Type Antibody Screen Crossmatch BBK History Checked 02/04/17 02/04/17 02/04/17 06:00 06:00 06:00 WBC 41.0 H* RBC 3.46 L Hgb 11.4 L Hct 33.4 L MCV 96.5 MCH 32.9 MCHC 34.1 RDW 15.8 H Plt Count 75 L MPV 13.0 H Gran % 81.9 H Lymph % (Auto) 2.4 L [place] % (Auto) 4.5 Eos % (Auto) 10.8 H Baso % (Auto) 0.4 Gran # 33.54 H Lymph # 1.0 L [place] # 1.8 H Eos # 4.4 H Baso # 0.18 PT 19.7 H INR 1.82 H Sodium 134 Potassium 4.5 Chloride 103 Carbon Dioxide 17 L Anion Gap 19 BUN 60 H Creatinine 6.1 H Est GFR ( Amer) 13 Est GFR (Non-Af Amer) 11 POC Glucose (mg/dL) Random Glucose 70 Calcium 8.2 L Phosphorus 6.2 H Magnesium 1.9 Total Bilirubin 22.1 H* AST 57 ALT 60 H Alkaline Phosphatase 467 H Total Protein 6.7 Albumin 2.9 L Globulin 3.8 Albumin/Globulin Ratio 0.8 L Total Beta HCG BCR/abl Source BCR/abl Prior Result BCR/abl Interpretation BCR/abl1 to abl1 % BCR/abl1 to abl1 IS % BCR/abl1 Mnr (p190) Res BCR/abl1 Mjr (p210) Res Blood Type Antibody Screen Crossmatch BBK History Checked 02/04/17 12:23 WBC RBC Hgb Hct MCV MCH MCHC RDW Plt Count MPV Gran % Lymph % (Auto) [place] % (Auto) Eos % (Auto) Baso % (Auto) Gran # Lymph # [place] # Eos # Baso # PT INR Sodium Potassium Chloride Carbon Dioxide Anion Gap BUN Creatinine Est GFR ( Amer) Est GFR (Non-Af Amer) POC Glucose (mg/dL) 72 Random Glucose Calcium Phosphorus Magnesium Total Bilirubin AST ALT Alkaline Phosphatase Total Protein Albumin Globulin Albumin/Globulin Ratio Total Beta HCG BCR/abl Source BCR/abl Prior Result BCR/abl Interpretation BCR/abl1 to abl1 % BCR/abl1 to abl1 IS % BCR/abl1 Mnr (p190) Res BCR/abl1 Mjr (p210) Res Blood Type Antibody Screen Crossmatch BBK History Checked Critical Care Progress Note - Nutrition Nutrition: Nutrition Category Date Time Status Regular Diet [DIET] Diets 02/03/17 Dinner Ordered Attending/Attestation - Attestation I have personally seen and examined this patient.: Yes I have fully participated in the care of the patient.: Yes I have reviewed all pertinent clinical information: Yes Notes (Text): 02/04/17 15:08 36 y/o M w/ Downs Syndrome MODS NIKITA plan to have HD catheter placed and start HD today per nephrology Unclear if this is from HRS from large liver tumor. On albumin volume challenge. New elevation of WBC and found to have new Liver masses. Malignancy seems likely and plans to initiate chemotherapy soon while pending biopsy results . HyperBILI due to obstructive liver mass, obstructive jaundice and AMS. Poor prognosis. Family aware Full code Palliative care consulted. cc time 45 min
[2017-02-04] MEDS ORDERED: Morphine 4 mg/ml ISec IVP PRN (13:51)
[2017-02-04] MEDS ORDERED: Menthol/Methyl Salicylate Ointment(1 oz) TOP SCH (18:00)
[2017-02-04] MEDS ORDERED: Albuterol-Ipratrop 3 mg / 0.5 (3 ml) UD IH PRN (18:16)
[2017-02-04] MEDS ORDERED: Albuterol-Ipratrop 3 mg / 0.5 (3 ml) UD IH STA (18:19)
[2017-02-04] MEDS: Menthol/Methyl Salicylate Ointment(1 oz) TOP SCH (18:27)
[2017-02-04] MEDS ORDERED: Dextrose 50% SYRINGE Inj (50 ml) IVP STA (19:08)
--- NOTE | 2017-02-04 19:53 | VASCULAR ---
PROCEDURE: Ultrasound and fluoroscopic tunneled right IJ dialysis catheter. CLINICAL HISTORY: Stage IV malignancy. Acute renal failure. Needs dialysis catheter PHYSICIAN(S): Mick Willis M.D. TECHNIQUE: The relative risks and indications for the procedure were explained to the patient's mother and informed written consent obtained. The patient was placed supine on the arteriography table and the right neck/chest was prepped and draped in the usual sterile fashion. 1% Xylocaine was used to anesthetize the skin and soft tissues at the puncture site. Conscious sedation and monitoring were provided throughout the procedure by a nurse. Under direct ultrasound guidance, the rightinternal jugular vein was punctured with a micropuncture set. A 0.035 Glidewire was advanced into the IVC. Sequential dilatation was performed with subsequent placement of a 28cm Corado II catheter with its tip in the right atrium. A retrograde tunnel below the right clavicle was performed. The catheter was trimmed and the hub attached. Both ports aspirate and inject easily. The catheter was secured and a dressing applied. The patient tolerated the procedure well. IMPRESSION: 1. Ultrasound and fluoroscopically placed right IJ tunneled dialysis catheter.
--- NOTE | 2017-02-04 19:53 | VASCULAR ---
PROCEDURE: Ultrasound and fluoroscopically placed left upper extremity PICC line. HISTORY: Stage for malignancy. Hepatic and renal failure. Needs IV access. PHYSICIAN(S): Mick Willis MD. TECHNIQUE: The relative risks and indications of the procedure were explained to the patient's mother and consent obtained. The patient was placed supine on the arteriogram table and the left arm prepped and draped in the usual sterile fashion. A tourniquet was applied to the left axilla. 1% Xylocaine was used to anesthetize the skin and soft tissues at the puncture site above the elbow. The left basilic vein was punctured under direct ultrasound guidance with a micropuncture set. A 0.018 guidewire was advanced centrally and used to measure the length to the SVC/RA junction. A 5 Ghanaian dual-lumen PICC line 47 cm long was advanced to the SVC/RA junction. The catheter was flushed and secured. The patient tolerated the procedure well. IMPRESSION: 1. Ultrasound and fluoroscopically placed left upper extremity PICC line. A 5 [place]ian dual lumen PICC line 47 cm long was advanced to the SVC/RA junction.
--- NOTE | 2017-02-04 19:58 | VASCULAR ---
PROCEDURE: 1. Fluoroscopic internal/external biliary drainage 2. Common bile duct dilatation. HISTORY: Stage 4 malignancy. Biliary obstruction. Needs internal/external biliary drainage PHYSICIAN(S): Mick Willis MD. TECHNIQUE: The relative risks and indications of the procedure were explained to the patient's mother and consent obtained. The patient was placed supine on the arteriography table and the sub xiphoid area prepped and draped usual sterile fashion. Under ultrasound guidance, a dilated left biliary system was punctured with an Accustick system. Contrast was injected and a cholangiogram performed. 0.018 guidewire was advanced the level of the CBD obstruction. Exchange is made for a 5 [place] catheter and 0.035 glidewire. No malignant obstruction was crossed with the glidewire. Exchange is made for a 0. 035 Amplatz support wire. Dilatation was performed. Initial attempts at placing the 12 [place] internal/external biliary drain were unsuccessful. The malignant obstruction of the CBD was dilated with a 6 mm balloon. Next a 12 [place] internal/external biliary drain was easily passed into the duodenum. The catheter was secured and flushed. The patient tolerated the procedure well. FINDINGS: The left intrahepatic biliary system is dilated. The right intrahepatic system is not opacified. There is a long severe narrowing of the common bile duct and common hepatic duct. IMPRESSION: 1.Malignant obstruction extending from the hilum to involve the common hepatic and common bile duct 2. Successful placement of a 12 [place] internal/external biliary drain. Dilatation of the malignant stricture was required to place the drain.
[2017-02-04] MEDS ORDERED: Sodium Chloride 0.9% 500 ML IV STA (22:55)
[2017-02-05] MEDS ORDERED: Sodium Chloride 0.9% 500 ML IV STA (02:30)
[2017-02-05 06:30] LABS: HEMATOCRIT 31.2 % (42.0-52.0); MEAN CELL VOLUME 96.6 fL (80.0-105.0); MEAN CORPUSCULAR HEMOGLOBIN 33.4 pg (25.0-35.0); MEAN CORPUSCULAR HGB CONC 34.6 g/dl (31.0-37.0); MEAN PLATELET VOLUME 11.6 fl (7.0-11.0); RED CELL DISTRIBUTION WIDTH 15.9 % (11.5-14.5)
[2017-02-05 06:36] LABS: WHITE BLOOD COUNT 42.4 10^3/ul (4.5-11.0)
[2017-02-05 06:41] LABS: ALB/GLOB RATIO 0.7 (1.1-1.8); CALCIUM 7.9 mg/dL (8.4-10.5); POTASSIUM 5.1 mmol/L (3.6-5.0); TOTAL PROTEIN 6.4 g/dL (5.8-8.3)
[2017-02-05 06:52] LABS: BILIRUBIN,TOTAL 18.4 mg/dL (0.2-1.3)
[2017-02-05] MEDS: NOREPINEPHRINE BIT/0.9 % NACL 4 MG/250 ML BAG IV PRN ×2 (07:35→20:24)
[2017-02-05] MEDS: Menthol/Methyl Salicylate Ointment(1 oz) TOP SCH ×3 (08:00→14:00)
--- NOTE | 2017-02-05 08:11 | CP.PCM.PN ---
Subjective - Date & Time of Evaluation Date of Evaluation: 02/05/17 Time of Evaluation: 08:02 - Subjective Subjective: Patient seen and examined, he remains in critical care unit. No acute events overnight, though he complains of extreme pain at dialysis port site. He denies abdominal pain, nausea, vomiting, diarrhea. Review of vitals from this morning shows hypotension. 12 point review of systems performed, negative aside from mentioned above. Objective - Vital Signs/Intake and Output Vital Signs (last 24 hours): Temp Pulse Resp BP Pulse Ox 98.2 F 85 14 90/39 L 100 02/05/17 07:59 02/05/17 07:59 02/05/17 07:59 02/05/17 07:59 02/05/17 07:59 Intake and Output: 02/05/17 02/05/17 06:59 18:59 Intake Total 1730 Output Total 260 Balance 1470 - Medications Medications: Current Medications Albumin Human (Albumin Human 25% (12.5 Gm/50 Ml)) 12.5 gm IV DAILY [facility] Stop: 02/06/17 10:46 Last Admin: 02/04/17 15:54 Dose: 12.5 gm Albuterol/Ipratropium (Duoneb 3 Mg/0.5 Mg (3 Ml) Ud) 3 ml IH Q2H PRN PRN Reason: Shortness of Breath Allopurinol (Zyloprim) 100 mg PO DAILY [facility] Last Admin: 02/04/17 10:35 Dose: 100 mg Camphor/Menthol (Bengay) 0 gm TOP TID [facility] Last Admin: 02/04/17 18:27 Dose: 1 oin Piperacillin Sod/Tazobactam Sod (Zosyn 2.25 Gm In 0.9% 100 Ml) 2.25 gm in 100 mls @ 100 mls/hr IV Q8 IVAN PRN Reason: Protocol Stop: 02/12/17 22:01 Last Admin: 02/04/17 22:00 Dose: 100 mls/hr Dextrose (Dextrose 10% In Water) 500 mls @ 50 mls/hr IV .Q10H IVAN Last Admin: 02/04/17 20:02 Dose: 50 mls/hr NOREPINEPHRINE BIT/0.9 % NACL (Levophed 4 Mg/ 250 Ml Ns Premixed) 4 mg in 250 mls @ 15 mls/hr IV .[id number] PRN; Protocol; 4 MCG/MIN PRN Reason: TITRATE PER MD ORDER Last Admin: 02/05/17 07:35 Dose: 4 mcg/min, 15 mls/hr Midodrine (Proamatine) 10 mg PO TID [facility] Last Admin: 02/04/17 18:28 Dose: Not Given Morphine Sulfate (Morphine) 1 mg IVP Q3H PRN PRN Reason: Pain, moderate (4-7) Morphine Sulfate (Morphine) 2 mg IVP Q4 PRN PRN Reason: Pain, severe (8-10) Last Admin: 02/04/17 17:53 Dose: 2 mg Octreotide Acetate (Sandostatin) 100 mcg SC TID [facility] Stop: 02/06/17 14:01 Last Admin: 02/04/17 18:28 Dose: 100 mcg Ondansetron HCl (Zofran Inj) 4 mg IVP Q4H PRN PRN Reason: Nausea/Vomiting Last Admin: 02/02/17 16:58 Dose: 4 mg Phytonadione (Vitamin K Inj) 10 mg SC DAILY [facility] Last Admin: 02/04/17 10:59 Dose: 10 mg Polyethylene Glycol (Miralax) 17 gm PO DAILY [facility] Last Admin: 02/04/17 10:58 Dose: Not Given - Labs Labs: 02/05/17 06:25 02/05/17 06:25 PT 19.7 Seconds (9.9-11.8) H 02/04/17 06:00 INR 1.82 (0.93-1.08) H 02/04/17 06:00 - Constitutional Appears: Non-toxic, In Acute Distress, Chronically Ill - Head Exam Head Exam: NORMAL INSPECTION - Eye Exam Eye Exam: EOMI, Scleral icterus - ENT Exam ENT Exam: Mucous Membranes Moist - Respiratory Exam Respiratory Exam: Clear to Ausculation Bilateral - Cardiovascular Exam Cardiovascular Exam: REGULAR RHYTHM, +S1, +S2 - GI/Abdominal Exam GI & Abdominal Exam: Soft, Tenderness, Normal Bowel Sounds Additional comments: diffuse tenderness to palpation, no rebound/guarding PTC drain in place with bilious output in bag - Extremities Exam Extremities Exam: Pedal Edema - Psychiatric Exam Psychiatric exam: Agitated - Skin Skin Exam: Dry, Warm Additional comments: +jaundice Assessment and Plan - Assessment and Plan (Free Text) Assessment: Down's sydrome Hypothyroidism Crohn's colitis Abdominal pain, jaundice s/p PTC drain placement Acute renal insufficiency s/p initiation of dialysis Hepatic lesions, diffuse abdominal lymphadenopathy s/p IR guided biopsy suggestive of epithelial metastatic tumor Plan: - Patient hypotensive, will be started on vasopressor support today as per java grails developer - Continue with broad spectrum antibiotic therapy - Pain control - Awaiting final pathology results from lymph node biopsy - Treatment for HRS was started, though patient now has began dialysis. - Continue to monitor bilirubin and LFTs - Overall prognosis is quite poor for this patient given evidence of advanced disease, appreciate palliative care evaluation - Follow up oncology recommendations
--- NOTE | 2017-02-05 09:06 | PN ---
DATE: 02/05/2017 SUBJECTIVE: The patient is sitting upright in bed with family member at bedside. Has nasal cannula via O2, in no respiratory distress. The patient is having some discomfort at the dialysis catheter s ite. Also, note that this morning his blood pressure has been trending a little lower and fluid chal lenge has been given. The patient has no complaints of cough or congestion. No nausea, vomiting, no diarrhea, no abdominal pain. PHYSICAL EXAMINATION: VITAL SIGNS: His temperature is 98.2, his pulse is 85, respirations of 14 and BP is 90/39. O2 satur ation on nasal cannula support is 100%. HEENT: Head is atraumatic, normocephalic. Eyes reactive to light. Ears, nose and throat seemed to be within normal limits. NECK: Supple. No JVD, no thyroid enlargement, no lymph nodes. CARDIOVASCULAR: Heart has a regular rate and rhythm. Normal S1, S2. LUNGS: Reveal decreased breath sounds at the bases. ABDOMEN: Soft, nontender. Decreased bowel sounds and obese. GENITALIA AND RECTAL: Deferred. MUSCULOSKELETAL: No joint deformities. EXTREMITIES: Reveal trace lower extremity edema. NEUROLOGIC: The patient seems to be grossly intact. LABORATORY DATA: The patient's white count is 42.4, hemoglobin is 10.8 and hematocrit 31.2, and plat elets of 56,000. Sodium is 133, potassium 5.1, chloride 104, CO2 of 19 with a BUN of 48, creatinine of 5.4 and glucose of 106. The patient's bilirubin is 18.4. IMPRESSION: This patient has Down syndrome with hypothyroidism, Crohn's colitis as well as abdominal pain and jaundice, is status post PTC drain placement. He has acute renal failure, resulting in dayanna lysis and the patient had hepatic lesion, diffuse abdominal lymphadenopathy and a biopsy of the lesio ns are suspicious for epithelioid metastatic tumor. The patient also this morning is noted to have s ome hypotension. He has anemia and thrombocytopenia. The patient also has a leukemoid reaction and increased white count. PLAN: We will continue with O2 via nasal cannula. The patient is getting Levophed started to suppor t the blood pressure and we will continue with albumin as well as IV fluids. The patient is getting bronchodilators and morphine p.r.n. for pain. We will continue with the Zosyn antibiotic and Zofran for any nauseousness. The patient will be followed closely and we will continue to treat aggressivel y along with the other consultants and the primary care doctor. Colten Alberts MD cc: [id number] TT: 02/05/2017 09:04:49 Confirmation # [id number] Dictation # [id number] vishal
[2017-02-05] MEDS: Albumin Human 25% (12.5 gm/50 ml) IV SCH (09:10)
[2017-02-05] MEDS: Morphine 2 mg/ml ISec IVP PRN ×3 (09:11→15:21)
[2017-02-05] MEDS: Phytonadione 10 mg/ml Inj (Adult) SC SCH (09:13)
[2017-02-05] MEDS: POLYETHYLENE GLYCOL 3350 17 GM/Dose PACKET PO SCH (09:17)
[2017-02-05] MEDS: Piperacillin/Tazobact 2.25gm 2.25 GM/100 ML BAG IV SCH ×2 (13:47→22:09)
--- NOTE | 2017-02-05 13:50 | PN ---
DATE: 02/05/2017 The patient is in bed in no acute distress, nontoxic. The patient seen earlier today in the unit and appears to be comfortable. PHYSICAL EXAMINATION: VITAL SIGNS: Temperature is 98. Blood pressure is 83/50, respiratory rate of 15, heart rate of 88. HEENT: Unremarkable. NECK: Supple. LUNGS: Decreased breath sounds. HEART: Normal S1, S2. ABDOMEN: Soft, nontender. LABORATORY EXAMINATION: Reveals a white count of 42,000, hemoglobin of 10, platelets of 56. School Guidance Counselor lori reveal the patient has a BUN of 48, creatinine of 5.2. LFTs are elevated. Urinalysis is noted. Serology is noted. CMV DNA is less than 200. Don-Ren virus, Capsid, IgM and IgG are negative . Microbiology reveals the blood cultures are no growth. Urine cultures are no growth. Body fluid cultures are no growth. Review of orders reveals the patient to be on Zosyn. Carolee Hobbs's note is reviewed. Dr. Alberts's note is reviewed from this morning. Dr. Escalante's note is reviewed, gastroent erology, and Dr. Rizvi's note from yesterday is reviewed. ASSESSMENT AND PLAN: A 36-year-old male with Down's syndrome, morbid obesity with a body mass index of 41, with history of Crohn's disease, now with hypotension, history of hypothyroidism. Dr. Chahal' writes history of ulcerative colitis. Dr. Escalante's states history of Crohn's disease. 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 The patient is also on albumin and morphine, was given a dose of vancomycin. Because of the re nal function, on low dose Zosyn and also on Levophed with all cultures negative. Biopsy results of p athology poorly differentiated metastatic malignant neoplasm. No evidence of B cell or T cell lympho ma on flow cytometry analysis. Final results are pending. Overall prognosis is poor. We will follo w with you. Niranjan Higginbotham MD cc: [phone] TT: 02/05/2017 13:50:32 Confirmation # [id number] Dictation # [id number] tn
--- NOTE | 2017-02-06 00:32 | CP.PCM.PN ---
Subjective - Date & Time of Evaluation Date of Evaluation: 02/05/17 Time of Evaluation: 15:00 - Subjective Subjective: he is currently undergoing dialysis. Unable to tolerate it. Complaining of pain at dialysis cath site. he received morphine at noon time. Yesterday he required narcan for respiratory depression with narcotics. s/p biliary drain placement. BP dropped since yesterday, he is on pressor support now. Has been getting BIPAP. Bilurubin still elevated. No bleeding. Petechie on skin. Objective - Vital Signs/Intake and Output Vital Signs (last 24 hours): Temp Pulse Resp BP Pulse Ox 98.7 F 101 H 13 106/64 93 L 02/05/17 16:00 02/05/17 18:30 02/05/17 18:30 02/05/17 18:30 02/05/17 18:30 Intake and Output: 02/05/17 02/06/17 18:59 06:59 Intake Total 2102 Output Total 280 Balance 1822 - Medications Medications: Current Medications Albumin Human (Albumin Human 25% (12.5 Gm/50 Ml)) 12.5 gm IV DAILY [facility] Stop: 02/06/17 10:46 Last Admin: 02/05/17 09:10 Dose: 12.5 gm Albuterol/Ipratropium (Duoneb 3 Mg/0.5 Mg (3 Ml) Ud) 3 ml IH Q2H PRN PRN Reason: Shortness of Breath Allopurinol (Zyloprim) 100 mg PO DAILY [facility] Last Admin: 02/05/17 09:13 Dose: 100 mg Camphor/Menthol (Bengay) 0 gm TOP TID [facility] Last Admin: 02/05/17 14:00 Dose: Not Given Famotidine (Pepcid) 20 mg PO 1000,2200 [facility] Last Admin: 02/05/17 21:47 Dose: Not Given Piperacillin Sod/Tazobactam Sod (Zosyn 2.25 Gm In 0.9% 100 Ml) 2.25 gm in 100 mls @ 100 mls/hr IV Q8 IVAN PRN Reason: Protocol Stop: 02/12/17 22:01 Last Admin: 02/05/17 22:09 Dose: 100 mls/hr Dextrose (Dextrose 10% In Water) 500 mls @ 50 mls/hr IV .Q10H [facility] Last Admin: 02/05/17 17:00 Dose: 50 mls/hr NOREPINEPHRINE BIT/0.9 % NACL (Levophed 4 Mg/ 250 Ml Ns Premixed) 4 mg in 250 mls @ 15 mls/hr IV .[id number] PRN; Protocol; 4 MCG/MIN PRN Reason: TITRATE PER MD ORDER Last Admin: 02/05/17 20:24 Dose: 15 mcg/min, 56.25 mls/hr Methylprednisolone (Solu-Medrol) 60 mg IVP DAILY [facility] Last Admin: 02/05/17 17:02 Dose: 60 mg Midodrine (Proamatine) 10 mg PO TID [facility] Last Admin: 02/05/17 19:48 Dose: Not Given Morphine Sulfate (Morphine) 1 mg IVP Q3H PRN PRN Reason: Pain, moderate (4-7) Last Admin: 02/05/17 15:21 Dose: 1 mg Morphine Sulfate (Morphine) 2 mg IVP Q4 PRN PRN Reason: Pain, severe (8-10) Last Admin: 02/05/17 12:13 Dose: 2 mg Octreotide Acetate (Sandostatin) 100 mcg SC TID [facility] Stop: 02/06/17 14:01 Last Admin: 02/05/17 19:00 Dose: 100 mcg Ondansetron HCl (Zofran Inj) 4 mg IVP Q4H PRN PRN Reason: Nausea/Vomiting Last Admin: 02/02/17 16:58 Dose: 4 mg Phytonadione (Vitamin K Inj) 10 mg SC DAILY [facility] Last Admin: 02/05/17 09:13 Dose: 10 mg Polyethylene Glycol (Miralax) 17 gm PO DAILY [facility] Last Admin: 02/05/17 09:17 Dose: 17 gm - Labs Labs: 02/05/17 06:25 02/05/17 06:25 PT 19.7 Seconds (9.9-11.8) H 02/04/17 06:00 INR 1.82 (0.93-1.08) H 02/04/17 06:00 - Constitutional Appears: In Acute Distress - Head Exam Head Exam: ATRAUMATIC, NORMAL INSPECTION, NORMOCEPHALIC - Eye Exam Eye Exam: absent: Conjunctival injection, EOMI, Normal appearance, Nystagmus, Periorbital swelling, Periorbital tenderness, PERRL, Scleral icterus - ENT Exam ENT Exam: absent: Mucous Membranes Dry, Mucous Membranes Moist, Normal Exam, Normal External Ear Exam, Normal Oropharynx, TM's Normal Bilaterally - Neck Exam Neck Exam: absent: Full ROM, Lymphadenopathy, Meningismus, Normal Inspection, Tenderness, Thyromegaly - Respiratory Exam Respiratory Exam: Accessory Muscle Use, NORMAL BREATHING PATTERN - Cardiovascular Exam Cardiovascular Exam: Tachycardia, +S1, +S2 - GI/Abdominal Exam GI & Abdominal Exam: Soft, Normal Bowel Sounds - Extremities Exam Extremities Exam: Normal Inspection - Back Exam Back Exam: NORMAL INSPECTION - Neurological Exam Additional comments: sedated, moving all limbs. Non communicative. - Skin Skin Exam: Dry, Intact, Petechiae, Warm Additional comments: icterus present. Assessment and Plan - Assessment and Plan (Free Text) Plan: 1. Multiple hepatic masses 2. retroperitoneal lymphadenpathy 3. Obstructive Jaundice. 4. Acute renal failure, on dialysis 5. leukocytosis 6. Coagulopathy. 7. Hypotension Plan : hepatic failure, renal failure, hypotensive on pressor support. hemodialysis started yesterday. Biopsy of lymph node pending immuno stains. There is a possibility of ALPS syndrome, auto immune lymphoproliferative syndrome. It causes hepatosplenomegaly, lympadenopathy. renal failure has been reported. diagnosis is clinical. he has chron's disease. he might benefit from high dose steroids. Solumedrol 60 mg daily ordered. Gastric prophylaxis - pepcid [address] scans were negative for current lesions that are seen now, leukemia, lymphoma is ruled out by flow. Both can cause rapid development of symptoms. Possibility of germ cell tumor is being ruled out. Tumor markers are not contributory. coagulopathic : vit k 10 mg Sq daily. s/p FFP, platelets. will monitor coags. CV: circulatory failure. on pressors. ID : cultures negative. on broad spectrum antibiotics. EBV, CMV serologies negative. Thank you Dr. Marinelli for allowing us to participate in his care.
--- NOTE | 2017-02-06 00:44 | CP.PCM.PN ---
Subjective - Date & Time of Evaluation Date of Evaluation: 02/04/17 Time of Evaluation: 18:00 - Subjective Subjective: he is complaining of back pain. he underwent dialysis for 2 hours today. Did not tolerate procedure well. he was restless and combative. Currently getting morphine prn for pain. Not communicating, sedated. had dialysis cath, PICC line and biliary drain placed today. Coagulopathy, no bleeding. Objective - Vital Signs/Intake and Output Vital Signs (last 24 hours): Temp Pulse Resp BP Pulse Ox 98.5 F 101 H 13 106/64 93 L 02/06/17 00:00 02/05/17 18:30 02/05/17 18:30 02/05/17 18:30 02/05/17 18:30 Intake and Output: 02/05/17 02/06/17 18:59 06:59 Intake Total 2102 Output Total 280 Balance 1822 - Medications Medications: Current Medications Albumin Human (Albumin Human 25% (12.5 Gm/50 Ml)) 12.5 gm IV DAILY [facility] Stop: 02/06/17 10:46 Last Admin: 02/05/17 09:10 Dose: 12.5 gm Albuterol/Ipratropium (Duoneb 3 Mg/0.5 Mg (3 Ml) Ud) 3 ml IH Q2H PRN PRN Reason: Shortness of Breath Allopurinol (Zyloprim) 100 mg PO DAILY [facility] Last Admin: 02/05/17 09:13 Dose: 100 mg Camphor/Menthol (Bengay) 0 gm TOP TID [facility] Last Admin: 02/05/17 14:00 Dose: Not Given Famotidine (Pepcid) 20 mg PO 1000,2200 [facility] Last Admin: 02/05/17 21:47 Dose: Not Given Piperacillin Sod/Tazobactam Sod (Zosyn 2.25 Gm In 0.9% 100 Ml) 2.25 gm in 100 mls @ 100 mls/hr IV Q8 IVAN PRN Reason: Protocol Stop: 02/12/17 22:01 Last Admin: 02/05/17 22:09 Dose: 100 mls/hr Dextrose (Dextrose 10% In Water) 500 mls @ 50 mls/hr IV .Q10H [facility] Last Admin: 02/05/17 17:00 Dose: 50 mls/hr NOREPINEPHRINE BIT/0.9 % NACL (Levophed 4 Mg/ 250 Ml Ns Premixed) 4 mg in 250 mls @ 15 mls/hr IV .[id number] PRN; Protocol; 4 MCG/MIN PRN Reason: TITRATE PER MD ORDER Last Admin: 02/05/17 20:24 Dose: 15 mcg/min, 56.25 mls/hr Methylprednisolone (Solu-Medrol) 60 mg IVP DAILY [facility] Last Admin: 02/05/17 17:02 Dose: 60 mg Midodrine (Proamatine) 10 mg PO TID [facility] Last Admin: 02/05/17 19:48 Dose: Not Given Morphine Sulfate (Morphine) 1 mg IVP Q3H PRN PRN Reason: Pain, moderate (4-7) Last Admin: 02/05/17 15:21 Dose: 1 mg Morphine Sulfate (Morphine) 2 mg IVP Q4 PRN PRN Reason: Pain, severe (8-10) Last Admin: 02/05/17 12:13 Dose: 2 mg Octreotide Acetate (Sandostatin) 100 mcg SC TID [facility] Stop: 02/06/17 14:01 Last Admin: 02/05/17 19:00 Dose: 100 mcg Ondansetron HCl (Zofran Inj) 4 mg IVP Q4H PRN PRN Reason: Nausea/Vomiting Last Admin: 02/02/17 16:58 Dose: 4 mg Phytonadione (Vitamin K Inj) 10 mg SC DAILY [facility] Last Admin: 02/05/17 09:13 Dose: 10 mg Polyethylene Glycol (Miralax) 17 gm PO DAILY [facility] Last Admin: 02/05/17 09:17 Dose: 17 gm - Labs Labs: 02/05/17 06:25 02/05/17 06:25 PT 19.7 Seconds (9.9-11.8) H 02/04/17 06:00 INR 1.82 (0.93-1.08) H 02/04/17 06:00 - Constitutional Appears: Other - Head Exam Head Exam: ATRAUMATIC, NORMAL INSPECTION, NORMOCEPHALIC Additional comments: icterus present. - Eye Exam Eye Exam: Normal appearance Pupil Exam: NORMAL ACCOMODATION - ENT Exam ENT Exam: Mucous Membranes Moist, Normal Oropharynx - Neck Exam Neck Exam: Normal Inspection - Respiratory Exam Respiratory Exam: Clear to Ausculation Bilateral, Respiratory Distress - Cardiovascular Exam Cardiovascular Exam: Tachycardia, REGULAR RHYTHM, +S1, +S2 - GI/Abdominal Exam GI & Abdominal Exam: Soft, Normal Bowel Sounds - Extremities Exam Extremities Exam: Normal Capillary Refill, Normal Inspection - Back Exam Back Exam: NORMAL INSPECTION - Neurological Exam Additional comments: sedated - Skin Skin Exam: Intact, Warm Additional comments: icteric Assessment and Plan - Assessment and Plan (Free Text) Plan: 1. Multiorgan failure : etiology uncertain. Lymph node biopsy report awaited. Dialysis initiated today. 2. Chron's disease, s/p entiyo. 3. Coagulopathy : FFP, Plts given today, continue vit K 4. ID : on broad spectrum antibiotics. NO obvious infection. EBV, CMV serology negative. To continue supportive care until biopsy resulted. prognosis poor.
[2017-02-06] MEDS: Morphine 2 mg/ml ISec IVP PRN ×2 (01:44→10:47)
[2017-02-06] MEDS: NOREPINEPHRINE BIT/0.9 % NACL 4 MG/250 ML BAG IV PRN ×3 (02:12→13:56)
[2017-02-06] MEDS: Piperacillin/Tazobact 2.25gm 2.25 GM/100 ML BAG IV SCH ×2 (05:59→13:12)
[2017-02-06 06:16] LABS: HEMATOCRIT 31.6 % (42.0-52.0); MEAN CELL VOLUME 95.8 fL (80.0-105.0); MEAN CORPUSCULAR HEMOGLOBIN 33.9 pg (25.0-35.0); MEAN CORPUSCULAR HGB CONC 35.4 g/dl (31.0-37.0); PLATELET COUNT 45 10^3/uL (120.0-450.0); RED CELL DISTRIBUTION WIDTH 16.6 % (11.5-14.5)
[2017-02-06 06:21] LABS: INR 1.68 (0.93-1.08); PARTIAL THROMBOPLASTIN TIME 49.5 Seconds (23.7-30.8)
[2017-02-06 06:22] LABS: ALB/GLOB RATIO 0.8 (1.1-1.8); BILIRUBIN,TOTAL 12.3 mg/dL (0.2-1.3); CALCIUM 7.8 mg/dL (8.4-10.5); POTASSIUM 4.7 mmol/L (3.6-5.0); TOTAL PROTEIN 6.7 g/dL (5.8-8.3)
[2017-02-06 06:42] LABS: WHITE BLOOD COUNT 64.6 10^3/ul (4.5-11.0)
[2017-02-06 06:43] LABS: ADD MANUAL DIFF? YES
[2017-02-06 08:03] LABS: FIBRINOGEN 206.5 mg/dL (187-400)
[2017-02-06 08:18] LABS: BAND 7 % (0-2); EOSINOPHIL 7 % (0.0-3.0); MYELOCYTE 4 %; NEUTROPHIL 76 % (50.0-70.0); PROMYELOCYTE 1 %
--- NOTE | 2017-02-06 08:49 | CP.PCM.PN ---
Subjective - Date & Time of Evaluation Date of Evaluation: 02/06/17 Time of Evaluation: 08:39 - Subjective Subjective: Patient seen and examined. He remains in critical care unit on vasopressor support. He appears slightly more comfortable today as compared to yesterday, less pain at dialysis port site. As per nursing staff, approximately 50 cc bilious output via PTC drain overnight. He denies abdominal pain, nausea, vomiting, fever/chills. Tolerating small sips of PO liquids without difficulty. Review of vitals from today shows hypotension and hypoxia. 12 point review of systems performed, negative aside from mentioned above. Objective - Vital Signs/Intake and Output Vital Signs (last 24 hours): Temp Pulse Resp BP Pulse Ox 98.3 F 77 12 107/51 L 78 L 02/06/17 04:00 02/06/17 06:41 02/06/17 06:30 02/06/17 06:30 02/06/17 06:30 Intake and Output: 02/06/17 02/06/17 06:59 18:59 Intake Total 1725 Output Total 50 Balance 1675 - Medications Medications: Current Medications Albumin Human (Albumin Human 25% (12.5 Gm/50 Ml)) 12.5 gm IV DAILY [facility] Stop: 02/06/17 10:46 Last Admin: 02/05/17 09:10 Dose: 12.5 gm Albuterol/Ipratropium (Duoneb 3 Mg/0.5 Mg (3 Ml) Ud) 3 ml IH Q2H PRN PRN Reason: Shortness of Breath Last Admin: 02/06/17 04:29 Dose: 3 ml Allopurinol (Zyloprim) 100 mg PO DAILY [facility] Last Admin: 02/05/17 09:13 Dose: 100 mg Camphor/Menthol (Bengay) 0 gm TOP TID [facility] Last Admin: 02/05/17 14:00 Dose: Not Given Famotidine (Pepcid) 20 mg PO 1000,2200 [facility] Last Admin: 02/05/17 21:47 Dose: Not Given Piperacillin Sod/Tazobactam Sod (Zosyn 2.25 Gm In 0.9% 100 Ml) 2.25 gm in 100 mls @ 100 mls/hr IV Q8 IVAN PRN Reason: Protocol Stop: 02/12/17 22:01 Last Admin: 02/06/17 05:59 Dose: 100 mls/hr Dextrose (Dextrose 10% In Water) 500 mls @ 50 mls/hr IV .Q10H [facility] Last Admin: 02/06/17 03:24 Dose: 50 mls/hr NOREPINEPHRINE BIT/0.9 % NACL (Levophed 4 Mg/ 250 Ml Ns Premixed) 4 mg in 250 mls @ 15 mls/hr IV .[id number] PRN; Protocol; 4 MCG/MIN PRN Reason: TITRATE PER MD ORDER Last Admin: 02/06/17 02:12 Dose: 15 mcg/min, 56.25 mls/hr Methylprednisolone (Solu-Medrol) 60 mg IVP DAILY [facility] Last Admin: 02/05/17 17:02 Dose: 60 mg Midodrine (Proamatine) 10 mg PO TID [facility] Last Admin: 02/05/17 19:48 Dose: Not Given Morphine Sulfate (Morphine) 1 mg IVP Q3H PRN PRN Reason: Pain, moderate (4-7) Last Admin: 02/05/17 15:21 Dose: 1 mg Morphine Sulfate (Morphine) 2 mg IVP Q4 PRN PRN Reason: Pain, severe (8-10) Last Admin: 02/06/17 01:44 Dose: 2 mg Octreotide Acetate (Sandostatin) 100 mcg SC TID [facility] Stop: 02/06/17 14:01 Last Admin: 02/05/17 19:00 Dose: 100 mcg Ondansetron HCl (Zofran Inj) 4 mg IVP Q4H PRN PRN Reason: Nausea/Vomiting Last Admin: 02/02/17 16:58 Dose: 4 mg Phytonadione (Vitamin K Inj) 10 mg SC DAILY [facility] Last Admin: 02/05/17 09:13 Dose: 10 mg Polyethylene Glycol (Miralax) 17 gm PO DAILY [facility] Last Admin: 02/05/17 09:17 Dose: 17 gm - Labs Labs: 02/06/17 05:50 02/06/17 05:50 PT 18.1 Seconds (9.9-11.8) H 02/06/17 05:50 INR 1.68 (0.93-1.08) H 02/06/17 05:50 APTT 49.5 Seconds (23.7-30.8) H 02/06/17 05:50 - Constitutional Appears: No Acute Distress, Chronically Ill - Head Exam Head Exam: NORMAL INSPECTION - Eye Exam Eye Exam: EOMI, Scleral icterus - ENT Exam ENT Exam: Mucous Membranes Moist - Respiratory Exam Respiratory Exam: Clear to Ausculation Bilateral - Cardiovascular Exam Cardiovascular Exam: REGULAR RHYTHM, +S1, +S2 - GI/Abdominal Exam GI & Abdominal Exam: Soft, Normal Bowel Sounds Additional comments: non tender to palpation in four quadrants PTC drain in place with bilious output in bag - Extremities Exam Extremities Exam: Pedal Edema - Skin Additional comments: +jaundice Assessment and Plan - Assessment and Plan (Free Text) Assessment: Down's syndrome Obesity Crohn's colitis with catina-anal disease, recently on Entyvio Abdominal pain, obstructive jaundice s/p PTC drain Acute renal insufficiency, now on dialysis Diffuse lymphadenopathy s/p IR guided biopsy showing epithelial metastatic tumor Plan: - Patient remains critically ill on vasopressor support, titration of dose as per critical care team - Liquid diet as tolerated - Antibiotic therapy as per ID - Patient started on high dose steroid therapy by Dr. Padron, ?ALPS - Bilirubin/LFTs trending down, continue to monitor - Awaiting final pathology results from lymph node biopsy - Overall prognosis for patient remains poor, will continue to monitor and make recommendations along with coordination with other consultants
[2017-02-06] MEDS: POLYETHYLENE GLYCOL 3350 17 GM/Dose PACKET PO SCH (09:35)
[2017-02-06] MEDS: Phytonadione 10 mg/ml Inj (Adult) SC SCH (09:37)
--- NOTE | 2017-02-06 09:41 | PN ---
DATE: 02/06/2017 SUBJECTIVE: The patient is resting in bed, much less pain today at site of the dialysis catheter. Ansley underwood is on a nonrebreather facemask and seems to be resting comfortably with no respiratory distress. N o significant cough or congestion. No fever, chills. No nausea, vomiting. No significant abdominal pain or diarrhea. PHYSICAL EXAMINATION: VITAL SIGNS: His pulse is 77. The patient is afebrile with respirations of 12 and BP is 107/51. SKIN: Warm and dry. HEAD: Atraumatic, normocephalic. EYES: Reactive to light. EARS, NOSE AND THROAT: Seem to be within normal limits. NECK: Supple. No JVD, no thyroid enlargement, no lymph nodes. HEART: Has a regular rate and rhythm. Normal S1, S2. LUNGS: Reveal decreased breath sounds at the bases. ABDOMEN: Soft. Decreased bowel sounds. Obese. GENITALIA AND RECTAL: Deferred. MUSCULOSKELETAL: No joint deformities. EXTREMITIES: Reveal trace lower extremity edema. NEUROLOGIC: The patient is grossly intact. LABORATORIES: His white count is 64.6, hemoglobin is 11.2, hematocrit 31.6, and platelets of 45,000. PT is 18.1, INR is 1.68 and PTT is 49.5. Sodium is 133, potassium 4.7, chloride 100, CO2 of 20, BU N of 42, creatinine of 4.9 and glucose is 155. IMPRESSION: This patient has Down syndrome and hypothyroidism as well as Crohn's colitis. He has ja undice and a percutaneous transhepatic cholangiography drain placement. The patient has acute renal failure requiring hemodialysis and noted to have a hepatic lesion, diffuse abdominal lymphadenopathy and a biopsy of the hepatic lesion is suspicious for epithelioid metastatic tumor. The patient douglas nues to have hypotension which is corrected by Levophed and is noted to have anemia and thrombocytope karoline as well as a leukemoid reaction with an increased white count. PLAN: We will continue O2 via nasal cannula. Continue the Levophed to support the blood pressure an d IV fluids intermittently. The patient is getting bronchodilators as well as morphine p.r.n. for hi s pain. He is on Zosyn and Zofran and is being followed closely and we will continue to treat aggres sively along with the other consultants and the primary care doctor. Colten Alberts MD cc: [id number] TT: 02/06/2017 09:41:14 Confirmation # [id number] Dictation # [id number] en
[2017-02-06] MEDS: Albumin Human 25% (12.5 gm/50 ml) IV SCH (09:58)
[2017-02-06] MEDS: Menthol/Methyl Salicylate Ointment(1 oz) TOP SCH ×3 (09:58→18:10)
--- NOTE | 2017-02-06 10:01 | PN ---
DATE: 02/06/2017 The patient is in bed in no acute distress. The patient seen earlier in [facility], bed ____. PHYSICAL EXAMINATION: VITAL SIGNS: Temperature is 97, blood pressure is 101/50, respiratory rate of 18. HEENT: Unremarkable. NECK: Supple. LUNGS: Decreased breath sounds. HEART: Normal S1, S2. ABDOMEN: Soft, nontender. LABORATORY EXAMINATION: Reveals the patient has a white count of 64,000. Hemoglobin of 11 and 45,00 0 platelets. Chemistries reveal a BUN of 42, creatinine of 4.9. LFTs are elevated with an alk phos of 427. Urinalysis is noted. Cultures are negative. Review of orders reveals the patient is on Zosyn. Dr. Escalante's note is reviewed. Dr. Padron's note fr om yesterday is reviewed. 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 Currently on Zosyn. Cultures negative in a patient w ho has ____. Overall prognosis is poor for this patient with multiple hepatic masses, retroperitonea l adenopathy, obstructive jaundice and acute renal failure and hemodialysis and coagulopathy and jevon ent has hypotension now and we will follow closely with you. Niranjan Higginbotham MD cc: [phone] TT: 02/06/2017 10:00:21 Confirmation # [id number] Dictation # [id number] sn
--- NOTE | 2017-02-06 16:39 | CP.PCM.PN ---
Subjective - Date & Time of Evaluation Date of Evaluation: 02/06/17 Time of Evaluation: 13:00 - Subjective Subjective: He is more comfortable today. Pain at cath site decreased. he is on BIPAP. Father bedside saying that he feels uncomfortable with the mask. BP improved, pressors on wean. Bilirubin declined to 12, was elevated to 18.0. Biliary drain patent draining bilious fluid. Was dialyzed yesterday. Objective - Vital Signs/Intake and Output Vital Signs (last 24 hours): Temp Pulse Resp BP Pulse Ox 97.6 F 68 14 94/75 L 95 02/06/17 16:00 02/06/17 16:00 02/06/17 16:00 02/06/17 15:00 02/06/17 16:00 Intake and Output: 02/06/17 02/06/17 06:59 18:59 Intake Total 1975 250 Output Total 50 Balance 1925 250 - Medications Medications: Current Medications Albuterol/Ipratropium (Duoneb 3 Mg/0.5 Mg (3 Ml) Ud) 3 ml IH Q2H PRN PRN Reason: Shortness of Breath Last Admin: 02/06/17 04:29 Dose: 3 ml Allopurinol (Zyloprim) 100 mg PO DAILY [facility] Last Admin: 02/06/17 09:37 Dose: 100 mg Camphor/Menthol (Bengay) 0 gm TOP TID [facility] Last Admin: 02/06/17 14:49 Dose: Not Given Famotidine (Pepcid) 20 mg PO 1000,2200 [facility] Last Admin: 02/06/17 09:36 Dose: 20 mg Piperacillin Sod/Tazobactam Sod (Zosyn 2.25 Gm In 0.9% 100 Ml) 2.25 gm in 100 mls @ 100 mls/hr IV Q8 IVAN PRN Reason: Protocol Stop: 02/12/17 22:01 Last Admin: 02/06/17 13:12 Dose: 100 mls/hr Dextrose (Dextrose 10% In Water) 500 mls @ 50 mls/hr IV .Q10H [facility] Last Admin: 02/06/17 13:56 Dose: 50 mls/hr NOREPINEPHRINE BIT/0.9 % NACL (Levophed 4 Mg/ 250 Ml Ns Premixed) 4 mg in 250 mls @ 15 mls/hr IV .[id number] PRN; Protocol; 4 MCG/MIN PRN Reason: TITRATE PER MD ORDER Last Admin: 02/06/17 13:56 Dose: 8 mcg/min, 30 mls/hr Methylprednisolone (Solu-Medrol) 60 mg IVP DAILY [facility] Last Admin: 02/06/17 09:36 Dose: 60 mg Midodrine (Proamatine) 10 mg PO TID [facility] Last Admin: 02/06/17 13:11 Dose: 10 mg Morphine Sulfate (Morphine) 1 mg IVP Q3H PRN PRN Reason: Pain, moderate (4-7) Last Admin: 02/06/17 10:47 Dose: 1 mg Morphine Sulfate (Morphine) 2 mg IVP Q4 PRN PRN Reason: Pain, severe (8-10) Last Admin: 02/06/17 01:44 Dose: 2 mg Ondansetron HCl (Zofran Inj) 4 mg IVP Q4H PRN PRN Reason: Nausea/Vomiting Last Admin: 02/02/17 16:58 Dose: 4 mg Phytonadione (Vitamin K Inj) 10 mg SC DAILY [facility] Last Admin: 02/06/17 09:37 Dose: 10 mg Polyethylene Glycol (Miralax) 17 gm PO DAILY [facility] Last Admin: 02/06/17 09:35 Dose: 17 gm - Labs Labs: 02/06/17 05:50 02/06/17 05:50 PT 18.1 Seconds (9.9-11.8) H 02/06/17 05:50 INR 1.68 (0.93-1.08) H 02/06/17 05:50 APTT 49.5 Seconds (23.7-30.8) H 02/06/17 05:50 - Constitutional Appears: Chronically Ill - Head Exam Head Exam: ATRAUMATIC, NORMAL INSPECTION, NORMOCEPHALIC - Eye Exam Eye Exam: Normal appearance Pupil Exam: NORMAL ACCOMODATION Additional comments: icterus present. - ENT Exam ENT Exam: Mucous Membranes Moist - Neck Exam Neck Exam: Full ROM, Normal Inspection - Respiratory Exam Respiratory Exam: Clear to Ausculation Bilateral, NORMAL BREATHING PATTERN - Cardiovascular Exam Cardiovascular Exam: REGULAR RHYTHM, +S1, +S2 - GI/Abdominal Exam GI & Abdominal Exam: Soft, Normal Bowel Sounds - Extremities Exam Extremities Exam: Normal Capillary Refill, Normal Inspection - Back Exam Back Exam: NORMAL INSPECTION - Neurological Exam Additional comments: sedated - Skin Skin Exam: Pallor Additional comments: icteric Assessment and Plan - Assessment and Plan (Free Text) Assessment: AP 1. Multiple hepatic masses 2. retroperitoneal lymphadenpathy, ? ALPS syndrome 3. Obstructive Jaundice. 4. Acute renal failure, on dialysis 5. leukocytosis 6. Coagulopathy. 7. Hypotension 8. Chrons ds, Plan : 1. He improved slightly on steroids. Started yesterday because of suspicion of autoimmune lymphoproliferative syndrome. Bilirubin declined to 12.0 He was dialyzed yesterday. Biliary drain patent. LN Biopsy awaited . 2. Coagulopathy : improved. 3. Leukocytosis : WC elevated to 66 k, likely related to steroids . 4. ID : cultures negative. on broad spectrum antibiotics. EBV, CMV serologies negative. 5. ARF : on hemodialysis. 6. CV : circulatory failure : BP improved , pressors on wean. prognosis poor. multiorgan failure. Status discussed with father. Thank you Dr. Marinelli for allowing us to participate in his care.
[2017-02-07] MEDS: Morphine 2 mg/ml ISec IVP PRN ×5 (00:15→12:33)
[2017-02-07] MEDS: NOREPINEPHRINE BIT/0.9 % NACL 4 MG/250 ML BAG IV PRN (00:22)
[2017-02-07 04:47] VITALS: TEMP 97.2
[2017-02-07 06:59] LABS: ALB/GLOB RATIO 0.7 (1.1-1.8); BILIRUBIN,TOTAL 9.4 mg/dL (0.2-1.3); CALCIUM 7.8 mg/dL (8.4-10.5); POTASSIUM 4.9 mmol/L (3.6-5.0); TOTAL PROTEIN 6.1 g/dL (5.8-8.3)
[2017-02-07 07:08] LABS: BASO # 0.47 K/mm3 (0.0-2.0); BASO % 0.7 % (0.0-3.0); EOS # 2.8 (0.0-0.7); GRAN # 60.33 (1.4-6.5); GRAN % 88.1 % (50.0-68.0); HEMATOCRIT 31.3 % (42.0-52.0); LYMPH % 2.9 % (22.0-35.0); MEAN CORPUSCULAR HEMOGLOBIN 33.4 pg (25.0-35.0); MEAN CORPUSCULAR HGB CONC 34.8 g/dl (31.0-37.0); MONO % 4.3 % (1.0-6.0); PLATELET COUNT 34 10^3/uL (120.0-450.0)
[2017-02-07 07:30] LABS: ADD MANUAL DIFF? NO; WHITE BLOOD COUNT 68.5 10^3/ul (4.5-11.0)
[2017-02-07 07:46] LABS: PHOSPHOROUS 6.8 mg/dL (2.5-4.5)
--- NOTE | 2017-02-07 08:33 | CP.CCUPN ---
<Missy Kendrick - Last Filed: 02/07/17 10:35> CCU Subjective - Physician Review Subjective (Free Text): 02/04/17 13:33 No acute complaint in AM. BP from 100s to 80s and lethargic after morphin for pain. Narcan given. BP and mentation improve. [facility] with FFP/Plt/albumen 02/07/17 08:32 Pt complained of diffuse pain. Talk less than yesterday Mentation decreases. Did not pass bedside RN swallow eval CCU Objective - Vital Signs / Intake & Output Vital Signs (Last 4 hours): Vital Signs Pulse Resp BP Pulse Ox 02/07/17 06:30 71 94 L 02/07/17 06:20 75 10 L 94 L 02/07/17 06:10 82 15 70 L 02/07/17 06:00 76 14 100/49 L 93 L 02/07/17 05:50 72 18 94 L 02/07/17 05:40 86 13 95 02/07/17 05:30 87 20 95 02/07/17 05:20 84 18 93 L 02/07/17 05:10 81 19 87 L 02/07/17 05:09 68 25 H 94/60 L 95 02/07/17 05:00 79 42 H 89/57 L 94 L 02/07/17 04:50 80 14 89 L 02/07/17 04:40 78 96 Intake and Output (Last 8hrs): Intake & Output 02/06/17 02/07/17 02/07/17 22:59 06:59 14:59 Intake Total 2225 933 Output Total 50 200 Balance 2175 733 Weight 260 lb 4 oz Intake: IV 1405 813 Albumin 50 Antibiotic 100 D10W 600 550 Levophed 405 263 Oral 820 120 Output: Drainage 50 200 Right Upper Abdomen 50 200 Stool 0 - Physical Exam Head: Positive for: Atraumatic, Normocephalic Pupils: Positive for: PERRL Extroacular Muscles: Positive for: EOMI Conjunctiva: Positive for: Normal, Icteric Mouth: Positive for: Moist Mucous Membranes Neck: Positive for: Normal Range of Motion Respiratory/Chest: Positive for: Clear to Auscultation, Good Air Exchange. Negative for: Respiratory Distress, Accessory Muscle Use Cardiovascular: Positive for: Regular Rate and Rhythm, Normal S1, S2. Negative for: Murmurs Abdomen: Positive for: Tenderness (diffuse, nonfocal), Normal Bowel Sounds. Negative for: Distention, Peritoneal Signs, Rebound, Guarding Back: Positive for: Normal Inspection Upper Extremity: Positive for: Normal Inspection. Negative for: Cyanosis, Edema Lower Extremity: Positive for: Normal Inspection. Negative for: Edema Neurological: Positive for: GCS=15, CN II-XII Intact, Speech Normal. Negative for: Other (focal deficits) Skin: Positive for: Warm, Dry, Pale. Negative for: Rashes Psychiatric: Positive for: Alert, Oriented x 3, Normal Insight, Normal Concentration Other physical findings (Free Text): Lethargic today - Medications Active Medications: Active Medications Generic Name Dose Route Start Last Admin Trade Name Freq PRN Reason Stop Dose Admin Albuterol/Ipratropium 3 ml 02/04/17 18:16 02/06/17 04:29 Duoneb 3 Mg/0.5 Mg (3 Ml) Ud IH 3 ml Q2H PRN Administration Shortness of Breath Allopurinol 100 mg 02/01/17 11:00 02/06/17 09:37 Zyloprim PO 100 mg DAILY IVAN Administration Camphor/Menthol 0 gm 02/04/17 18:00 02/06/17 18:10 Bengay TOP Not Given TID IVAN Famotidine 20 mg 02/05/17 22:00 02/06/17 22:00 Pepcid PO 20 mg 1000,2200 IVAN Administration Piperacillin Sod/Tazobactam Sod 2.25 gm in 100 mls @ 100 mls/hr 02/03/17 22: 00 02/06/17 13:12 Zosyn 2.25 Gm In 0.9% 100 Ml IV 02/12/17 22:01 100 mls/hr Q8 IVAN Administration Protocol Dextrose 500 mls @ 50 mls/hr 02/04/17 19:45 02/07/17 00:25 Dextrose 10% In Water IV 50 mls/hr .Q10H IVAN Administration NOREPINEPHRINE BIT/0.9 % NACL 4 mg in 250 mls @ 15 mls/hr 02/05/17 07:28 00:22 Levophed 4 Mg/ 250 Ml Ns Premixed IV 8 mcg/min .[id number] PRN 30 mls/hr TITRATE PER MD ORDER Administration Protocol 4 MCG/MIN Methylprednisolone 60 mg 02/05/17 15:00 02/06/17 09:36 Solu-Medrol IVP 60 mg DAILY IVAN Administration Midodrine 10 mg 02/03/17 14:00 02/06/17 18:06 Proamatine PO 10 mg TID IVAN Administration Morphine Sulfate 1 mg 02/04/17 13:56 02/07/17 07:46 Morphine IVP 1 mg Q3H PRN Administration Pain, moderate (4-7) Morphine Sulfate 2 mg 02/04/17 14:05 02/07/17 05:37 Morphine IVP 2 mg Q4 PRN Administration Pain, severe (8-10) Ondansetron HCl 4 mg 02/01/17 13:01 02/02/17 16:58 Zofran Inj IVP 4 mg Q4H PRN Administration Nausea/Vomiting Phytonadione 10 mg 02/03/17 12:45 02/06/17 09:37 Vitamin K Inj SC 10 mg DAILY IVAN Administration Polyethylene Glycol 17 gm 02/02/17 10:45 02/06/17 09:35 Miralax PO 17 gm DAILY IVAN Administration - Patient Studies Lab Studies: Lab Studies 02/07/17 02/07/17 02/07/17 Range/Units 06:15 06:15 06:15 WBC 68.5 H* (4.5-11.0) 10^3/ul RBC 3.26 L (3.5-6.1) 10^6/uL Hgb 10.9 L (14.0-18.0) gm/dL Hct 31.3 L (42.0-52.0) % MCV 96.0 (80.0-105.0) fL MCH 33.4 (25.0-35.0) pg MCHC 34.8 (31.0-37.0) g/dl RDW 17.0 H (11.5-14.5) % Plt Count 34 L* (120.0-450.0) 10^3/uL Gran % 88.1 H (50.0-68.0) % Lymph % (Auto) 2.9 L (22.0-35.0) % [place] % (Auto) 4.3 (1.0-6.0) % Eos % (Auto) 4.0 (1.5-5.0) % Baso % (Auto) 0.7 (0.0-3.0) % Gran # 60.33 H (1.4-6.5) Lymph # 2.0 (1.2-3.4) [place] # 3.0 H (0.1-0.6) Eos # 2.8 H (0.0-0.7) Baso # 0.47 (0.0-2.0) K/mm3 Sodium 132 (132-148) mmol/L Potassium 4.9 (3.6-5.0) mmol/L Chloride 101 (95-110) mmol/L Carbon Dioxide 18 L (21-33) mmol/L Anion Gap 18 (10-20) BUN 56 H (7-21) mg/dL Creatinine 5.6 H (0.5-1.4) mg/dL Est GFR ( Amer) 14 Est GFR (Non-Af Amer) 12 POC Glucose (mg/dL) (65-110) mg/dL Random Glucose 116 H (70-110) mg/dL Calcium 7.8 L (8.4-10.5) mg/dL Phosphorus 6.8 H (2.5-4.5) mg/dL Magnesium 2.0 (1.7-2.2) mg/dL Total Bilirubin 9.4 H (0.2-1.3) mg/dL AST 83 H (15-59) U/L ALT 104 H (7-56) U/L Alkaline Phosphatase 338 H (38-133) U/L Total Protein 6.1 (5.8-8.3) g/dL Albumin 2.5 L (3.0-4.8) g/dL Globulin 3.6 gm/dL Albumin/Globulin Ratio 0.7 L (1.1-1.8) Crossmatch 02/07/17 02/07/17 02/06/17 Range/Units 04:54 00:31 20:37 WBC (4.5-11.0) 10^3/ul RBC (3.5-6.1) 10^6/uL Hgb (14.0-18.0) gm/dL Hct (42.0-52.0) % MCV (80.0-105.0) fL MCH (25.0-35.0) pg MCHC (31.0-37.0) g/dl RDW (11.5-14.5) % Plt Count (120.0-450.0) 10^3/uL Gran % (50.0-68.0) % Lymph % (Auto) (22.0-35.0) % [place] % (Auto) (1.0-6.0) % Eos % (Auto) (1.5-5.0) % Baso % (Auto) (0.0-3.0) % Gran # (1.4-6.5) Lymph # (1.2-3.4) [place] # (0.1-0.6) Eos # (0.0-0.7) Baso # (0.0-2.0) K/mm3 Sodium (132-148) mmol/L Potassium (3.6-5.0) mmol/L Chloride (95-110) mmol/L Carbon Dioxide (21-33) mmol/L Anion Gap (10-20) BUN (7-21) mg/dL Creatinine (0.5-1.4) mg/dL Est GFR ( Amer) Est GFR (Non-Af Amer) POC Glucose (mg/dL) 140 H 137 H 148 H (65-110) mg/dL Random Glucose (70-110) mg/dL Calcium (8.4-10.5) mg/dL Phosphorus (2.5-4.5) mg/dL Magnesium (1.7-2.2) mg/dL Total Bilirubin (0.2-1.3) mg/dL AST (15-59) U/L ALT (7-56) U/L Alkaline Phosphatase (38-133) U/L Total Protein (5.8-8.3) g/dL Albumin (3.0-4.8) g/dL Globulin gm/dL Albumin/Globulin Ratio (1.1-1.8) Crossmatch 02/06/17 02/06/17 02/06/17 Range/Units 15:36 11:45 07:33 WBC (4.5-11.0) 10^3/ul RBC (3.5-6.1) 10^6/uL Hgb (14.0-18.0) gm/dL Hct (42.0-52.0) % MCV (80.0-105.0) fL MCH (25.0-35.0) pg MCHC (31.0-37.0) g/dl RDW (11.5-14.5) % Plt Count (120.0-450.0) 10^3/uL Gran % (50.0-68.0) % Lymph % (Auto) (22.0-35.0) % [place] % (Auto) (1.0-6.0) % Eos % (Auto) (1.5-5.0) % Baso % (Auto) (0.0-3.0) % Gran # (1.4-6.5) Lymph # (1.2-3.4) [place] # (0.1-0.6) Eos # (0.0-0.7) Baso # (0.0-2.0) K/mm3 Sodium (132-148) mmol/L Potassium (3.6-5.0) mmol/L Chloride (95-110) mmol/L Carbon Dioxide (21-33) mmol/L Anion Gap (10-20) BUN (7-21) mg/dL Creatinine (0.5-1.4) mg/dL Est GFR ( Amer) Est GFR (Non-Af Amer) POC Glucose (mg/dL) 166 H 188 H 159 H (65-110) mg/dL Random Glucose (70-110) mg/dL Calcium (8.4-10.5) mg/dL Phosphorus (2.5-4.5) mg/dL Magnesium (1.7-2.2) mg/dL Total Bilirubin (0.2-1.3) mg/dL AST (15-59) U/L ALT (7-56) U/L Alkaline Phosphatase (38-133) U/L Total Protein (5.8-8.3) g/dL Albumin (3.0-4.8) g/dL Globulin gm/dL Albumin/Globulin Ratio (1.1-1.8) Crossmatch 02/03/17 Range/Units 23:00 WBC (4.5-11.0) 10^3/ul RBC (3.5-6.1) 10^6/uL Hgb (14.0-18.0) gm/dL Hct (42.0-52.0) % MCV (80.0-105.0) fL MCH (25.0-35.0) pg MCHC (31.0-37.0) g/dl RDW (11.5-14.5) % Plt Count (120.0-450.0) 10^3/uL Gran % (50.0-68.0) % Lymph % (Auto) (22.0-35.0) % [place] % (Auto) (1.0-6.0) % Eos % (Auto) (1.5-5.0) % Baso % (Auto) (0.0-3.0) % Gran # (1.4-6.5) Lymph # (1.2-3.4) [place] # (0.1-0.6) Eos # (0.0-0.7) Baso # (0.0-2.0) K/mm3 Sodium (132-148) mmol/L Potassium (3.6-5.0) mmol/L Chloride (95-110) mmol/L Carbon Dioxide (21-33) mmol/L Anion Gap (10-20) BUN (7-21) mg/dL Creatinine (0.5-1.4) mg/dL Est GFR ( Amer) Est GFR (Non-Af Amer) POC Glucose (mg/dL) (65-110) mg/dL Random Glucose (70-110) mg/dL Calcium (8.4-10.5) mg/dL Phosphorus (2.5-4.5) mg/dL Magnesium (1.7-2.2) mg/dL Total Bilirubin (0.2-1.3) mg/dL AST (15-59) U/L ALT (7-56) U/L Alkaline Phosphatase (38-133) U/L Total Protein (5.8-8.3) g/dL Albumin (3.0-4.8) g/dL Globulin gm/dL Albumin/Globulin Ratio (1.1-1.8) Crossmatch See Detail Laboratory Results - last 24 hr 02/03/17 02/06/17 02/06/17 23:00 07:33 11:45 WBC RBC Hgb Hct MCV MCH MCHC RDW Plt Count Gran % Lymph % (Auto) [place] % (Auto) Eos % (Auto) Baso % (Auto) Gran # Lymph # [place] # Eos # Baso # Sodium Potassium Chloride Carbon Dioxide Anion Gap BUN Creatinine Est GFR ( Amer) Est GFR (Non-Af Amer) POC Glucose (mg/dL) 159 H 188 H Random Glucose Calcium Phosphorus Magnesium Total Bilirubin AST ALT Alkaline Phosphatase Total Protein Albumin Globulin Albumin/Globulin Ratio Crossmatch See Detail 02/06/17 02/06/17 02/07/17 15:36 20:37 00:31 WBC RBC Hgb Hct MCV MCH MCHC RDW Plt Count Gran % Lymph % (Auto) [place] % (Auto) Eos % (Auto) Baso % (Auto) Gran # Lymph # [place] # Eos # Baso # Sodium Potassium Chloride Carbon Dioxide Anion Gap BUN Creatinine Est GFR ( Amer) Est GFR (Non-Af Amer) POC Glucose (mg/dL) 166 H 148 H 137 H Random Glucose Calcium Phosphorus Magnesium Total Bilirubin AST ALT Alkaline Phosphatase Total Protein Albumin Globulin Albumin/Globulin Ratio Crossmatch 02/07/17 02/07/17 02/07/17 04:54 06:15 06:15 WBC 68.5 H* RBC 3.26 L Hgb 10.9 L Hct 31.3 L MCV 96.0 MCH 33.4 MCHC 34.8 RDW 17.0 H Plt Count 34 L* Gran % 88.1 H Lymph % (Auto) 2.9 L [place] % (Auto) 4.3 Eos % (Auto) 4.0 Baso % (Auto) 0.7 Gran # 60.33 H Lymph # 2.0 [place] # 3.0 H Eos # 2.8 H Baso # 0.47 Sodium 132 Potassium 4.9 Chloride 101 Carbon Dioxide 18 L Anion Gap 18 BUN 56 H Creatinine 5.6 H Est GFR ( Amer) 14 Est GFR (Non-Af Amer) 12 POC Glucose (mg/dL) 140 H Random Glucose 116 H Calcium 7.8 L Phosphorus Magnesium Total Bilirubin 9.4 H AST 83 H ALT 104 H Alkaline Phosphatase 338 H Total Protein 6.1 Albumin 2.5 L Globulin 3.6 Albumin/Globulin Ratio 0.7 L Crossmatch 02/07/17 06:15 WBC RBC Hgb Hct MCV MCH MCHC RDW Plt Count Gran % Lymph % (Auto) [place] % (Auto) Eos % (Auto) Baso % (Auto) Gran # Lymph # [place] # Eos # Baso # Sodium Potassium Chloride Carbon Dioxide Anion Gap BUN Creatinine Est GFR ( Amer) Est GFR (Non-Af Amer) POC Glucose (mg/dL) Random Glucose Calcium Phosphorus 6.8 H Magnesium 2.0 Total Bilirubin AST ALT Alkaline Phosphatase Total Protein Albumin Globulin Albumin/Globulin Ratio Crossmatch Fingerstick Blood Sugar Results: 140 Critical Care Progress Note - Nutrition Nutrition: Nutrition Category Date Time Status Renal Diet [DIET] Diets 02/05/17 Breakfast Ordered Assessment/Plan - Assessment and Plan (Free Text) Plan: 36 year old male with history of Down's syndrome, hypothyroidism, ulcerative colitis was admitted to Med/Surg on 01/30 for worsening diffuse abdominal pain x 5 days. His abdomen was distention and pt is jaundice on admission. CT scan found NEW multiple liver lesions and NEW diffuse retroperitoneal lymphedenopathy (compared to CT 3 months ago). MRCP shows pancreatic head mass extending to janis hepatis with large retroperitoneal lymph nodes, compressing bile duct; multiple large gall stone. He has Hepatorenal syndrome Type I, on midodrine, albumin, octerotide. Pt has ? ALPS synfrom and MODS, tried solumedrol x 2 days, but without improvement. He has obstructive jaundice, coagulopahty, hypotension, NIKITA/oliguric on Dialysis, fluid/overload, leukocytosis. Conjugated bilirubinemia is improving with bile drain. 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 Heme/onc and palliative will approach parents regarding goals of care. Neuro - diffuse body pain control by morphin PRN - questionable decrease mentation may due to NH3 vs pain meds Card - midodrine 10 TID - ON HOLD due to mentation - small to moderate pericardial effusion - on Levophed - If hypotension persist, will add vaso. Pulm - requiring 4L O2 nc during the day; bipap as needed - small left pleural effusion GI - biliary drain patent, bilous fluid - Bilirubin decline to 9 - Small ascite, perisplenic, non-tapable - Ulcerative colitis diagnosed 11/2015 on Entyvio - Plan to dialysis today plan to remove 2-3L - Albumin 25% 12.5gram qd - octreotide 100 TID - (Was on hold???) - Vitamin K 10 SC qd - After catheter placement, will start 1st HD - hold IVF's per nephrology rec's - strict I/O's Endo - allopurinol - on hold Heme - anemia, chronic - thrombocytopenia, pending coags, fibrinogen, FDP - peripheral smear pending - Tranfuse FFP 1 unit and plt before PICC/thrombocytopenia ID - zosyn - cultures negative. EBV, CMV serologies negative. Prophylaxis - Protonix - SCD Disposition - Palliative s/r/d/w Dr Clark - Date & Time Date: 02/07/17 Time: 08:33 <Kevan Clark - Last Filed: 02/07/17 13:41> CCU Objective - Vital Signs / Intake & Output Vital Signs (Last 4 hours): Vital Signs Pulse Resp BP Pulse Ox 02/07/17 11:50 71 17 89 L 02/07/17 11:40 69 10 L 92 L 02/07/17 11:30 68 11 L 75 L 02/07/17 11:20 72 44 H 95 02/07/17 11:10 69 13 94 L 02/07/17 11:00 69 19 105/45 L 94 L 02/07/17 10:50 65 18 96 02/07/17 10:40 73 15 96 02/07/17 10:30 72 11 L 94 L 02/07/17 10:20 81 9 L 89 L 02/07/17 10:10 81 12 88 L 02/07/17 10:00 79 10 L 106/61 88 L 02/07/17 09:50 79 16 89 L 02/07/17 09:40 77 89 L Intake and Output (Last 8hrs): Intake & Output 02/06/17 02/07/17 02/07/17 22:59 06:59 14:59 Intake Total 2225 933 0 Output Total 50 200 Balance 2175 733 0 Weight 260 lb 4 oz 266 lb 6.72 oz Intake: IV 1405 813 0 Albumin 50 Antibiotic 100 D10W 600 550 Levophed 405 263 Oral 820 120 Output: Drainage 50 200 Right Upper Abdomen 50 200 Stool 0 Other: Voiding Method Bedside Commode - Medications Active Medications: Active Medications Generic Name Dose Route Start Last Admin Trade Name Freq PRN Reason Stop Dose Admin Albuterol/Ipratropium 3 ml 02/04/17 18:16 02/06/17 04:29 Duoneb 3 Mg/0.5 Mg (3 Ml) Ud IH 3 ml Q2H PRN Administration Shortness of Breath Allopurinol 100 mg 02/01/17 11:00 02/06/17 09:37 Zyloprim PO 100 mg DAILY IVAN Administration Camphor/Menthol 0 gm 02/04/17 18:00 02/07/17 12:25 Bengay TOP 1 oin TID IVAN Administration Dextrose 500 mls @ 50 mls/hr 02/04/17 19:45 02/07/17 12:05 Dextrose 10% In Water IV 50 mls/hr .Q10H IVAN Administration NOREPINEPHRINE BIT/0.9 % NACL 4 mg in 250 mls @ 15 mls/hr 02/05/17 07:28 12:06 Levophed 4 Mg/ 250 Ml Ns Premixed IV 8 mcg/min .[id number] PRN 30 mls/hr TITRATE PER MD ORDER Titration Protocol 4 MCG/MIN Midodrine 10 mg 02/03/17 14:00 02/06/17 18:06 Proamatine PO 10 mg TID IVAN Administration Morphine Sulfate 1 mg 02/04/17 13:56 02/07/17 12:33 Morphine IVP 1 mg Q3H PRN Administration Pain, moderate (4-7) Morphine Sulfate 2 mg 02/04/17 14:05 02/07/17 05:37 Morphine IVP 2 mg Q4 PRN Administration Pain, severe (8-10) Ondansetron HCl 4 mg 02/01/17 13:01 02/02/17 16:58 Zofran Inj IVP 4 mg Q4H PRN Administration Nausea/Vomiting Phytonadione 10 mg 02/03/17 12:45 02/07/17 10:22 Vitamin K Inj SC 10 mg DAILY IVAN Administration Polyethylene Glycol 17 gm 02/02/17 10:45 02/06/17 09:35 Miralax PO 17 gm DAILY IVAN Administration - Patient Studies Lab Studies: Lab Studies 02/07/17 02/07/17 02/07/17 Range/Units 12:00 10:25 09:05 WBC (4.5-11.0) 10^3/ul RBC (3.5-6.1) 10^6/uL Hgb (14.0-18.0) gm/dL Hct (42.0-52.0) % MCV (80.0-105.0) fL MCH (25.0-35.0) pg MCHC (31.0-37.0) g/dl RDW (11.5-14.5) % Plt Count (120.0-450.0) 10^3/uL Gran % (50.0-68.0) % Lymph % (Auto) (22.0-35.0) % [place] % (Auto) (1.0-6.0) % Eos % (Auto) (1.5-5.0) % Baso % (Auto) (0.0-3.0) % Gran # (1.4-6.5) Lymph # (1.2-3.4) [place] # (0.1-0.6) Eos # (0.0-0.7) Baso # (0.0-2.0) K/mm3 PT 17.4 H (9.9-11.8) Seconds INR 1.61 H (0.93-1.08) APTT 45.6 H (23.7-30.8) Seconds Fibrinogen 198.8 (187-400) mg/dL pCO2 51 H (35-45) mm/Hg pO2 66.0 L (80-100) mm/Hg HCO3 18.2 L (21-28) mmol/L ABG pH 7.16 L* (7.35-7.45) ABG Total CO2 19.8 L (22-28) mmol.L ABG O2 Saturation 95.8 (95-98) % ABG O2 Content 13.0 L (15-23) ML/dl ABG Base Excess -10.2 L (-2.0-3.0) mmol/L ABG Hemoglobin 10.0 L (11.7-17.4) g/dL ABG Carboxyhemoglobin 2.7 H (0.5-1.5) % POC ABG HHb (Measured) 4.0 (0-5) % ABG Methemoglobin 1.2 (0.0-3.0) % ABG O2 Capacity 13.6 L (16-24) mL/dl Hgb O2 Saturation 92.1 L (95.0-98.0) % FiO2 100.0 % Sodium (132-148) mmol/L Potassium (3.6-5.0) mmol/L Chloride (95-110) mmol/L Carbon Dioxide (21-33) mmol/L Anion Gap (10-20) BUN (7-21) mg/dL Creatinine (0.5-1.4) mg/dL Est GFR ( Amer) Est GFR (Non-Af Amer) POC Glucose (mg/dL) 119 H (65-110) mg/dL Random Glucose (70-110) mg/dL Calcium (8.4-10.5) mg/dL Phosphorus (2.5-4.5) mg/dL Magnesium (1.7-2.2) mg/dL Total Bilirubin (0.2-1.3) mg/dL AST (15-59) U/L ALT (7-56) U/L Alkaline Phosphatase (38-133) U/L Total Protein (5.8-8.3) g/dL Albumin (3.0-4.8) g/dL Globulin gm/dL Albumin/Globulin Ratio (1.1-1.8) Fluid Albumin Cycl Citrul Peptide IgG (<20) Units ANCA Screen (NEGATIVE) c-ANCA Titer p-ANCA Titer Atypical p-ANCA Titer Crossmatch 02/07/17 02/07/17 02/07/17 Range/Units 06:15 06:15 06:15 WBC 68.5 H* (4.5-11.0) 10^3/ul RBC 3.26 L (3.5-6.1) 10^6/uL Hgb 10.9 L (14.0-18.0) gm/dL Hct 31.3 L (42.0-52.0) % MCV 96.0 (80.0-105.0) fL MCH 33.4 (25.0-35.0) pg MCHC 34.8 (31.0-37.0) g/dl RDW 17.0 H (11.5-14.5) % Plt Count 34 L* (120.0-450.0) 10^3/uL Gran % 88.1 H (50.0-68.0) % Lymph % (Auto) 2.9 L (22.0-35.0) % [place] % (Auto) 4.3 (1.0-6.0) % Eos % (Auto) 4.0 (1.5-5.0) % Baso % (Auto) 0.7 (0.0-3.0) % Gran # 60.33 H (1.4-6.5) Lymph # 2.0 (1.2-3.4) [place] # 3.0 H (0.1-0.6) Eos # 2.8 H (0.0-0.7) Baso # 0.47 (0.0-2.0) K/mm3 PT (9.9-11.8) Seconds INR (0.93-1.08) APTT (23.7-30.8) Seconds Fibrinogen (187-400) mg/dL pCO2 (35-45) mm/Hg pO2 (80-100) mm/Hg HCO3 (21-28) mmol/L ABG pH (7.35-7.45) ABG Total CO2 (22-28) mmol.L ABG O2 Saturation (95-98) % ABG O2 Content (15-23) ML/dl ABG Base Excess (-2.0-3.0) mmol/L ABG Hemoglobin (11.7-17.4) g/dL ABG Carboxyhemoglobin (0.5-1.5) % POC ABG HHb (Measured) (0-5) % ABG Methemoglobin (0.0-3.0) % ABG O2 Capacity (16-24) mL/dl Hgb O2 Saturation (95.0-98.0) % FiO2 % Sodium 132 (132-148) mmol/L Potassium 4.9 (3.6-5.0) mmol/L Chloride 101 (95-110) mmol/L Carbon Dioxide 18 L (21-33) mmol/L Anion Gap 18 (10-20) BUN 56 H (7-21) mg/dL Creatinine 5.6 H (0.5-1.4) mg/dL Est GFR ( Amer) 14 Est GFR (Non-Af Amer) 12 POC Glucose (mg/dL) (65-110) mg/dL Random Glucose 116 H (70-110) mg/dL Calcium 7.8 L (8.4-10.5) mg/dL Phosphorus 6.8 H (2.5-4.5) mg/dL Magnesium 2.0 (1.7-2.2) mg/dL Total Bilirubin 9.4 H (0.2-1.3) mg/dL AST 83 H (15-59) U/L ALT 104 H (7-56) U/L Alkaline Phosphatase 338 H (38-133) U/L Total Protein 6.1 (5.8-8.3) g/dL Albumin 2.5 L (3.0-4.8) g/dL Globulin 3.6 gm/dL Albumin/Globulin Ratio 0.7 L (1.1-1.8) Fluid Albumin Cycl Citrul Peptide IgG (<20) Units ANCA Screen (NEGATIVE) c-ANCA Titer p-ANCA Titer Atypical p-ANCA Titer Crossmatch 02/07/17 02/07/17 02/06/17 Range/Units 04:54 00:31 20:37 WBC (4.5-11.0) 10^3/ul RBC (3.5-6.1) 10^6/uL Hgb (14.0-18.0) gm/dL Hct (42.0-52.0) % MCV (80.0-105.0) fL MCH (25.0-35.0) pg MCHC (31.0-37.0) g/dl RDW (11.5-14.5) % Plt Count (120.0-450.0) 10^3/uL Gran % (50.0-68.0) % Lymph % (Auto) (22.0-35.0) % [place] % (Auto) (1.0-6.0) % Eos % (Auto) (1.5-5.0) % Baso % (Auto) (0.0-3.0) % Gran # (1.4-6.5) Lymph # (1.2-3.4) [place] # (0.1-0.6) Eos # (0.0-0.7) Baso # (0.0-2.0) K/mm3 PT (9.9-11.8) Seconds INR (0.93-1.08) APTT (23.7-30.8) Seconds Fibrinogen (187-400) mg/dL pCO2 (35-45) mm/Hg pO2 (80-100) mm/Hg HCO3 (21-28) mmol/L ABG pH (7.35-7.45) ABG Total CO2 (22-28) mmol.L ABG O2 Saturation (95-98) % ABG O2 Content (15-23) ML/dl ABG Base Excess (-2.0-3.0) mmol/L ABG Hemoglobin (11.7-17.4) g/dL ABG Carboxyhemoglobin (0.5-1.5) % POC ABG HHb (Measured) (0-5) % ABG Methemoglobin (0.0-3.0) % ABG O2 Capacity (16-24) mL/dl Hgb O2 Saturation (95.0-98.0) % FiO2 % Sodium (132-148) mmol/L Potassium (3.6-5.0) mmol/L Chloride (95-110) mmol/L Carbon Dioxide (21-33) mmol/L Anion Gap (10-20) BUN (7-21) mg/dL Creatinine (0.5-1.4) mg/dL Est GFR ( Amer) Est GFR (Non-Af Amer) POC Glucose (mg/dL) 140 H 137 H 148 H (65-110) mg/dL Random Glucose (70-110) mg/dL Calcium (8.4-10.5) mg/dL Phosphorus (2.5-4.5) mg/dL Magnesium (1.7-2.2) mg/dL Total Bilirubin (0.2-1.3) mg/dL AST (15-59) U/L ALT (7-56) U/L Alkaline Phosphatase (38-133) U/L Total Protein (5.8-8.3) g/dL Albumin (3.0-4.8) g/dL Globulin gm/dL Albumin/Globulin Ratio (1.1-1.8) Fluid Albumin Cycl Citrul Peptide IgG (<20) Units ANCA Screen (NEGATIVE) c-ANCA Titer p-ANCA Titer Atypical p-ANCA Titer Crossmatch 02/06/17 02/06/17 02/06/17 Range/Units 15:36 11:45 07:33 WBC (4.5-11.0) 10^3/ul RBC (3.5-6.1) 10^6/uL Hgb (14.0-18.0) gm/dL Hct (42.0-52.0) % MCV (80.0-105.0) fL MCH (25.0-35.0) pg MCHC (31.0-37.0) g/dl RDW (11.5-14.5) % Plt Count (120.0-450.0) 10^3/uL Gran % (50.0-68.0) % Lymph % (Auto) (22.0-35.0) % [place] % (Auto) (1.0-6.0) % Eos % (Auto) (1.5-5.0) % Baso % (Auto) (0.0-3.0) % Gran # (1.4-6.5) Lymph # (1.2-3.4) [place] # (0.1-0.6) Eos # (0.0-0.7) Baso # (0.0-2.0) K/mm3 PT (9.9-11.8) Seconds INR (0.93-1.08) APTT (23.7-30.8) Seconds Fibrinogen (187-400) mg/dL pCO2 (35-45) mm/Hg pO2 (80-100) mm/Hg HCO3 (21-28) mmol/L ABG pH (7.35-7.45) ABG Total CO2 (22-28) mmol.L ABG O2 Saturation (95-98) % ABG O2 Content (15-23) ML/dl ABG Base Excess (-2.0-3.0) mmol/L ABG Hemoglobin (11.7-17.4) g/dL ABG Carboxyhemoglobin (0.5-1.5) % POC ABG HHb (Measured) (0-5) % ABG Methemoglobin (0.0-3.0) % ABG O2 Capacity (16-24) mL/dl Hgb O2 Saturation (95.0-98.0) % FiO2 % Sodium (132-148) mmol/L Potassium (3.6-5.0) mmol/L Chloride (95-110) mmol/L Carbon Dioxide (21-33) mmol/L Anion Gap (10-20) BUN (7-21) mg/dL Creatinine (0.5-1.4) mg/dL Est GFR ( Amer) Est GFR (Non-Af Amer) POC Glucose (mg/dL) 166 H 188 H 159 H (65-110) mg/dL Random Glucose (70-110) mg/dL Calcium (8.4-10.5) mg/dL Phosphorus (2.5-4.5) mg/dL Magnesium (1.7-2.2) mg/dL Total Bilirubin (0.2-1.3) mg/dL AST (15-59) U/L ALT (7-56) U/L Alkaline Phosphatase (38-133) U/L Total Protein (5.8-8.3) g/dL Albumin (3.0-4.8) g/dL Globulin gm/dL Albumin/Globulin Ratio (1.1-1.8) Fluid Albumin Cycl Citrul Peptide IgG (<20) Units ANCA Screen (NEGATIVE) c-ANCA Titer p-ANCA Titer Atypical p-ANCA Titer Crossmatch 02/04/17 02/03/17 01/31/17 Range/Units 09:00 23:00 18:49 WBC (4.5-11.0) 10^3/ul RBC (3.5-6.1) 10^6/uL Hgb (14.0-18.0) gm/dL Hct (42.0-52.0) % MCV (80.0-105.0) fL MCH (25.0-35.0) pg MCHC (31.0-37.0) g/dl RDW (11.5-14.5) % Plt Count (120.0-450.0) 10^3/uL Gran % (50.0-68.0) % Lymph % (Auto) (22.0-35.0) % [place] % (Auto) (1.0-6.0) % Eos % (Auto) (1.5-5.0) % Baso % (Auto) (0.0-3.0) % Gran # (1.4-6.5) Lymph # (1.2-3.4) [place] # (0.1-0.6) Eos # (0.0-0.7) Baso # (0.0-2.0) K/mm3 PT (9.9-11.8) Seconds INR (0.93-1.08) APTT (23.7-30.8) Seconds Fibrinogen (187-400) mg/dL pCO2 (35-45) mm/Hg pO2 (80-100) mm/Hg HCO3 (21-28) mmol/L ABG pH (7.35-7.45) ABG Total CO2 (22-28) mmol.L ABG O2 Saturation (95-98) % ABG O2 Content (15-23) ML/dl ABG Base Excess (-2.0-3.0) mmol/L ABG Hemoglobin (11.7-17.4) g/dL ABG Carboxyhemoglobin (0.5-1.5) % POC ABG HHb (Measured) (0-5) % ABG Methemoglobin (0.0-3.0) % ABG O2 Capacity (16-24) mL/dl Hgb O2 Saturation (95.0-98.0) % FiO2 % Sodium (132-148) mmol/L Potassium (3.6-5.0) mmol/L Chloride (95-110) mmol/L Carbon Dioxide (21-33) mmol/L Anion Gap (10-20) BUN (7-21) mg/dL Creatinine (0.5-1.4) mg/dL Est GFR ( Amer) Est GFR (Non-Af Amer) POC Glucose (mg/dL) (65-110) mg/dL Random Glucose (70-110) mg/dL Calcium (8.4-10.5) mg/dL Phosphorus (2.5-4.5) mg/dL Magnesium (1.7-2.2) mg/dL Total Bilirubin (0.2-1.3) mg/dL AST (15-59) U/L ALT (7-56) U/L Alkaline Phosphatase (38-133) U/L Total Protein (5.8-8.3) g/dL Albumin (3.0-4.8) g/dL Globulin gm/dL Albumin/Globulin Ratio (1.1-1.8) Fluid Albumin TNP Cycl Citrul Peptide IgG <16 (<20) Units ANCA Screen Negative (NEGATIVE) c-ANCA Titer TNP p-ANCA Titer TNP Atypical p-ANCA Titer TNP Crossmatch See Detail Laboratory Results - last 24 hr 01/31/17 02/03/17 02/04/17 18:49 23:00 09:00 WBC RBC Hgb Hct MCV MCH MCHC RDW Plt Count Gran % Lymph % (Auto) [place] % (Auto) Eos % (Auto) Baso % (Auto) Gran # Lymph # [place] # Eos # Baso # PT INR APTT Fibrinogen pCO2 pO2 HCO3 ABG pH ABG Total CO2 ABG O2 Saturation ABG O2 Content ABG Base Excess ABG Hemoglobin ABG Carboxyhemoglobin POC ABG HHb (Measured) ABG Methemoglobin ABG O2 Capacity Hgb O2 Saturation FiO2 Sodium Potassium Chloride Carbon Dioxide Anion Gap BUN Creatinine Est GFR ( Amer) Est GFR (Non-Af Amer) POC Glucose (mg/dL) Random Glucose Calcium Phosphorus Magnesium Total Bilirubin AST ALT Alkaline Phosphatase Total Protein Albumin Globulin Albumin/Globulin Ratio Fluid Albumin TNP Cycl Citrul Peptide IgG <16 ANCA Screen Negative c-ANCA Titer TNP p-ANCA Titer TNP Atypical p-ANCA Titer TNP Crossmatch See Detail 02/06/17 02/06/17 02/06/17 07:33 11:45 15:36 WBC RBC Hgb Hct MCV MCH MCHC RDW Plt Count Gran % Lymph % (Auto) [place] % (Auto) Eos % (Auto) Baso % (Auto) Gran # Lymph # [place] # Eos # Baso # PT INR APTT Fibrinogen pCO2 pO2 HCO3 ABG pH ABG Total CO2 ABG O2 Saturation ABG O2 Content ABG Base Excess ABG Hemoglobin ABG Carboxyhemoglobin POC ABG HHb (Measured) ABG Methemoglobin ABG O2 Capacity Hgb O2 Saturation FiO2 Sodium Potassium Chloride Carbon Dioxide Anion Gap BUN Creatinine Est GFR ( Amer) Est GFR (Non-Af Amer) POC Glucose (mg/dL) 159 H 188 H 166 H Random Glucose Calcium Phosphorus Magnesium Total Bilirubin AST ALT Alkaline Phosphatase Total Protein Albumin Globulin Albumin/Globulin Ratio Fluid Albumin Cycl Citrul Peptide IgG ANCA Screen c-ANCA Titer p-ANCA Titer Atypical p-ANCA Titer Crossmatch 02/06/17 02/07/17 02/07/17 20:37 00:31 04:54 WBC RBC Hgb Hct MCV MCH MCHC RDW Plt Count Gran % Lymph % (Auto) [place] % (Auto) Eos % (Auto) Baso % (Auto) Gran # Lymph # [place] # Eos # Baso # PT INR APTT Fibrinogen pCO2 pO2 HCO3 ABG pH ABG Total CO2 ABG O2 Saturation ABG O2 Content ABG Base Excess ABG Hemoglobin ABG Carboxyhemoglobin POC ABG HHb (Measured) ABG Methemoglobin ABG O2 Capacity Hgb O2 Saturation FiO2 Sodium Potassium Chloride Carbon Dioxide Anion Gap BUN Creatinine Est GFR ( Amer) Est GFR (Non-Af Amer) POC Glucose (mg/dL) 148 H 137 H 140 H Random Glucose Calcium Phosphorus Magnesium Total Bilirubin AST ALT Alkaline Phosphatase Total Protein Albumin Globulin Albumin/Globulin Ratio Fluid Albumin Cycl Citrul Peptide IgG ANCA Screen c-ANCA Titer p-ANCA Titer Atypical p-ANCA Titer Crossmatch 02/07/17 02/07/17 02/07/17 06:15 06:15 06:15 WBC 68.5 H* RBC 3.26 L Hgb 10.9 L Hct 31.3 L MCV 96.0 MCH 33.4 MCHC 34.8 RDW 17.0 H Plt Count 34 L* Gran % 88.1 H Lymph % (Auto) 2.9 L [place] % (Auto) 4.3 Eos % (Auto) 4.0 Baso % (Auto) 0.7 Gran # 60.33 H Lymph # 2.0 Scre[place] # 3.0 H Eos # 2.8 H Baso # 0.47 PT INR APTT Fibrinogen pCO2 pO2 HCO3 ABG pH ABG Total CO2 ABG O2 Saturation ABG O2 Content ABG Base Excess ABG Hemoglobin ABG Carboxyhemoglobin POC ABG HHb (Measured) ABG Methemoglobin ABG O2 Capacity Hgb O2 Saturation FiO2 Sodium 132 Potassium 4.9 Chloride 101 Carbon Dioxide 18 L Anion Gap 18 BUN 56 H Creatinine 5.6 H Est GFR ( Amer) 14 Est GFR (Non-Af Amer) 12 POC Glucose (mg/dL) Random Glucose 116 H Calcium 7.8 L Phosphorus 6.8 H Magnesium 2.0 Total Bilirubin 9.4 H AST 83 H ALT 104 H Alkaline Phosphatase 338 H Total Protein 6.1 Albumin 2.5 L Globulin 3.6 Albumin/Globulin Ratio 0.7 L Fluid Albumin Cycl Citrul Peptide IgG ANCA Screen c-ANCA Titer p-ANCA Titer Atypical p-ANCA Titer Crossmatch 02/07/17 02/07/17 02/07/17 09:05 10:25 12:00 WBC RBC Hgb Hct MCV MCH MCHC RDW Plt Count Gran % Lymph % (Auto) [place] % (Auto) Eos % (Auto) Baso % (Auto) Gran # Lymph # [place] # Eos # Baso # PT 17.4 H INR 1.61 H APTT 45.6 H Fibrinogen 198.8 pCO2 51 H pO2 66.0 L HCO3 18.2 L ABG pH 7.16 L* ABG Total CO2 19.8 L ABG O2 Saturation 95.8 ABG O2 Content 13.0 L ABG Base Excess -10.2 L ABG Hemoglobin 10.0 L ABG Carboxyhemoglobin 2.7 H POC ABG HHb (Measured) 4.0 ABG Methemoglobin 1.2 ABG O2 Capacity 13.6 L Hgb O2 Saturation 92.1 L FiO2 100.0 Sodium Potassium Chloride Carbon Dioxide Anion Gap BUN Creatinine Est GFR ( Amer) Est GFR (Non-Af Amer) POC Glucose (mg/dL) 119 H Random Glucose Calcium Phosphorus Magnesium Total Bilirubin AST ALT Alkaline Phosphatase Total Protein Albumin Globulin Albumin/Globulin Ratio Fluid Albumin Cycl Citrul Peptide IgG ANCA Screen c-ANCA Titer p-ANCA Titer Atypical p-ANCA Titer Crossmatch Critical Care Progress Note - Nutrition Nutrition: Nutrition Category Date Time Status Renal Diet [DIET] Diets 02/05/17 Breakfast Ordered Attending/Attestation - Attestation I have personally seen and examined this patient.: Yes I have fully participated in the care of the patient.: Yes I have reviewed all pertinent clinical information: Yes Notes (Text): 02/07/17 13:33 36 male with down syndrome, presented with distributive shock in the setting of 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 Patient is DNR/DNI and family decided to switch to comfort care. Will honor their wishes. Palliative care and hospice service are on board ccm time 40 min
--- NOTE | 2017-02-07 08:38 | PN ---
DATE: 02/04/2017 ADDENDUM This is an addendum to the note from earlier today. The patient is post-hemodialysis catheter placement as well as PICC line placement. He is comfortabl e. He has passed bedside, his vitals are controlled. Temperature is 97.9, pulse of 90, blood pressu re 96/50, respirations 14. He was seen on dialysis. Dialysis treatment was started. I spoke with juan david dialysis nurse, his blood pressure remains stable, will do 2 hours of treatment, try to take about 1-1.5 liters fluid to be taken off. I did review the patient's pathology report that was finalized today. He has a metastatic, poorly differentiated, malignant neoplasm. Final diagnosis will be amanda levine on immunohistochemical analysis. Plan is to reevaluate tomorrow for dialysis and also the patient will most likely be started on chemo therapy. Ottoniel Marinelli MD cc: [id number] TT: 02/04/2017 19:28:12 Confirmation # [id number] Dictation # [id number] vishal
--- NOTE | 2017-02-07 09:36 | CP.PCM.PN ---
<Namita Bryant - Last Filed: 02/07/17 12:09> Subjective - Date & Time of Evaluation Date of Evaluation: 02/07/17 Time of Evaluation: 09:33 - Subjective Subjective: Gastroenterology Fellow/PGY4 Progress Note Patient does not respond to questioning. Father at bedside notes he had severe pain through the night, poor appetite, and malaise. Nursing notes low blood pressure requiring vasopressor support balanced with pain medication administration. PTC with 250cc drainage last 24 hours. No bowel movement. 12- point review of systems not completed due to noncommunicative state with decline in critical clinical status. Objective - Vital Signs/Intake and Output Vital Signs (last 24 hours): Temp Pulse Resp BP Pulse Ox 97.2 F L 75 13 112/72 92 L 02/07/17 04:00 02/07/17 09:10 02/07/17 09:10 02/07/17 09:00 02/07/17 09:10 Intake and Output: 02/07/17 02/07/17 06:59 18:59 Intake Total 1183 Output Total 200 Balance 983 - Medications Medications: Current Medications Albuterol/Ipratropium (Duoneb 3 Mg/0.5 Mg (3 Ml) Ud) 3 ml IH Q2H PRN PRN Reason: Shortness of Breath Last Admin: 02/06/17 04:29 Dose: 3 ml Allopurinol (Zyloprim) 100 mg PO DAILY [facility] Last Admin: 02/06/17 09:37 Dose: 100 mg Camphor/Menthol (Bengay) 0 gm TOP TID [facility] Last Admin: 02/06/17 18:10 Dose: Not Given Famotidine (Pepcid) 20 mg PO 1000,2200 [facility] Last Admin: 02/06/17 22:00 Dose: 20 mg Piperacillin Sod/Tazobactam Sod (Zosyn 2.25 Gm In 0.9% 100 Ml) 2.25 gm in 100 mls @ 100 mls/hr IV Q8 IVAN PRN Reason: Protocol Stop: 02/12/17 22:01 Last Admin: 02/06/17 13:12 Dose: 100 mls/hr Dextrose (Dextrose 10% In Water) 500 mls @ 50 mls/hr IV .Q10H [facility] Last Admin: 02/07/17 00:25 Dose: 50 mls/hr NOREPINEPHRINE BIT/0.9 % NACL (Levophed 4 Mg/ 250 Ml Ns Premixed) 4 mg in 250 mls @ 15 mls/hr IV .[id number] PRN; Protocol; 4 MCG/MIN PRN Reason: TITRATE PER MD ORDER Last Admin: 02/07/17 00:22 Dose: 8 mcg/min, 30 mls/hr Midodrine (Proamatine) 10 mg PO TID [facility] Last Admin: 02/06/17 18:06 Dose: 10 mg Morphine Sulfate (Morphine) 1 mg IVP Q3H PRN PRN Reason: Pain, moderate (4-7) Last Admin: 02/07/17 07:46 Dose: 1 mg Morphine Sulfate (Morphine) 2 mg IVP Q4 PRN PRN Reason: Pain, severe (8-10) Last Admin: 02/07/17 05:37 Dose: 2 mg Ondansetron HCl (Zofran Inj) 4 mg IVP Q4H PRN PRN Reason: Nausea/Vomiting Last Admin: 02/02/17 16:58 Dose: 4 mg Phytonadione (Vitamin K Inj) 10 mg SC DAILY [facility] Last Admin: 02/06/17 09:37 Dose: 10 mg Polyethylene Glycol (Miralax) 17 gm PO DAILY [facility] Last Admin: 02/06/17 09:35 Dose: 17 gm - Labs Labs: 02/07/17 06:15 02/07/17 06:15 PT 18.1 Seconds (9.9-11.8) H 02/06/17 05:50 INR 1.68 (0.93-1.08) H 02/06/17 05:50 APTT 49.5 Seconds (23.7-30.8) H 02/06/17 05:50 - Constitutional Appears: Toxic, No Acute Distress, Chronically Ill - Head Exam Head Exam: ATRAUMATIC, NORMOCEPHALIC - Eye Exam Eye Exam: EOMI, PERRL, Scleral icterus Pupil Exam: PERRL. absent: Miosis, Mydriatic - ENT Exam ENT Exam: Mucous Membranes Dry, Normal Oropharynx - Neck Exam Neck Exam: Full ROM, Normal Inspection - Respiratory Exam Respiratory Exam: Decreased Breath Sounds, Rhonchi. absent: Rales, Wheezes - Cardiovascular Exam Cardiovascular Exam: RRR, +S1, +S2. absent: Gallop, Rubs - GI/Abdominal Exam GI & Abdominal Exam: Soft, Tenderness, Normal Bowel Sounds. absent: Distended, Firm, Guarding, Rigid, Organomegaly, Rebound Additional comments: mild discomfort at RUQ biliary drain site, C/D/I, bilious brown output - Extremities Exam Extremities Exam: Normal Inspection Additional comments: 1+ B/L LE pitting edema - Psychiatric Exam Additional comments: nonverbal during evaluation, unable to assess - Skin Skin Exam: Dry, Intact, Warm Additional comments: jaundice improving Assessment and Plan - Assessment and Plan (Free Text) Assessment: 36 year old male with history of Hypothyroidism, Down's syndrome, Ulcerative colitis diagnosed 11/2015 on Entyvio presenting with abdominal pain. Active treatment of renal failure on dialysis, intahepatic obstructive cholestasis 2/2 new liver lesions and pancreatic head mass with associated extensicve lymphadenopathy extending to the janis hepatis, marked leukocytosis concerning for metastatic cancer. Plan: >discussed with Dr. Flores-likely upper GI, pancreatobiliary, or lung primary -immunostains negative for urothelial,vascular, melenoma, germ cell, or lymphoma >multidisciplinary team management >requiring vasopressor support >on broad spectrum antibiotics >received dialysis Tuesday/Tuesday >hyperbilirubinemia improving, PTC 250cc output last 24 hours >Hem/Onc discussion with family per Dr. Escalante- family discussion held- considering comfort care >critical clinical status, guarded prognosis <TirsoJarrett - Last Filed: 02/07/17 14:10> Objective - Vital Signs/Intake and Output Vital Signs (last 24 hours): Temp Pulse Resp BP Pulse Ox 97.2 F L 72 10 L 102/66 88 L 02/07/17 04:00 02/07/17 13:40 02/07/17 13:40 02/07/17 13:17 02/07/17 13:40 Intake and Output: 02/07/17 02/07/17 06:59 18:59 Intake Total 1183 0 Output Total 200 Balance 983 0 - Medications Medications: Current Medications Albuterol/Ipratropium (Duoneb 3 Mg/0.5 Mg (3 Ml) Ud) 3 ml IH Q2H PRN PRN Reason: Shortness of Breath Last Admin: 02/06/17 04:29 Dose: 3 ml Allopurinol (Zyloprim) 100 mg PO DAILY [facility] Last Admin: 02/06/17 09:37 Dose: 100 mg Camphor/Menthol (Bengay) 0 gm TOP TID [facility] Last Admin: 02/07/17 12:25 Dose: 1 oin Dextrose (Dextrose 10% In Water) 500 mls @ 50 mls/hr IV .Q10H [facility] Last Admin: 02/07/17 12:05 Dose: 50 mls/hr NOREPINEPHRINE BIT/0.9 % NACL (Levophed 4 Mg/ 250 Ml Ns Premixed) 4 mg in 250 mls @ 15 mls/hr IV .[id number] PRN; Protocol; 4 MCG/MIN PRN Reason: TITRATE PER MD ORDER Last Titration: 02/07/17 12:06 Dose: 8 mcg/min, 30 mls/hr Midodrine (Proamatine) 10 mg PO TID [facility] Last Admin: 02/06/17 18:06 Dose: 10 mg Morphine Sulfate (Morphine) 1 mg IVP Q3H PRN PRN Reason: Pain, moderate (4-7) Last Admin: 02/07/17 12:33 Dose: 1 mg Morphine Sulfate (Morphine) 2 mg IVP Q4 PRN PRN Reason: Pain, severe (8-10) Last Admin: 02/07/17 05:37 Dose: 2 mg Ondansetron HCl (Zofran Inj) 4 mg IVP Q4H PRN PRN Reason: Nausea/Vomiting Last Admin: 02/02/17 16:58 Dose: 4 mg Phytonadione (Vitamin K Inj) 10 mg SC DAILY [facility] Last Admin: 02/07/17 10:22 Dose: 10 mg Polyethylene Glycol (Miralax) 17 gm PO DAILY [facility] Last Admin: 02/06/17 09:35 Dose: 17 gm - Labs Labs: 02/07/17 06:15 02/07/17 06:15 PT 17.4 Seconds (9.9-11.8) H 02/07/17 12:00 INR 1.61 (0.93-1.08) H 02/07/17 12:00 APTT 45.6 Seconds (23.7-30.8) H 02/07/17 12:00 Attending/Attestation - Attestation I have personally seen and examined this patient.: Yes I have fully participated in the care of the patient.: Yes I have reviewed all pertinent clinical information, including history, physical exam and plan: Yes Notes (Text): 02/07/17 14:06 36 year old male with history of Down's syndrome, hypothyroidism, Crohn's colitis with catina-anal disease maintained on outpatient Entyvio who presents to hospital with complaint of abdominal pain, progressive lethargy, and jaundice, found to have acute renal failure, ascites, diffuse lymphadenopathy, liver lesions, marked leukocytosis, s/p biopsy suggestive of poorly differentiated adenocarcinoma. 1. Crohn's colitis 2. Biliary obstruction 3. Adenocarcinoma Plan: - poorly differentiated adenocarcinoma, unknown primary, path suggestive of UGI source, ddx includes pancreas cancer, cholangiocarcinoma, gastric/small bowel - hilar biliary obstruction s/p PTC, with improvement in bilirubin - however patient has otherwise detiorated, s/p dialysis x 2, increasing lethargy, hypoxia and respiratory distress requiring BIPAP, as well as shock requiring pressors - after discussion with oncology and palliative care, the family has decided to move towards comfort measures only, rather than further aggressive treatment
--- NOTE | 2017-02-07 09:50 | PN ---
DATE: 02/07/2017 SUBJECTIVE: The patient is sleeping. I spoke with the patient's parents at the bedside. He has bee n sleeping overnight. PHYSICAL EXAMINATION: VITAL SIGNS: Temperature is 97.2, pulse is 71, blood pressure 112/72, respiration is 15. GENERAL: The patient is comfortable, in no acute distress. HEENT: Anicteric sclerae. Moist mucosa. NECK: No JVD or adenopathy. CARDIAC: S1/S2. No murmurs. No rubs. Regular. RESPIRATORY: Clear to auscultation bilaterally. No wheezes, rales, or rhonchi. Good air entry. ABDOMEN: Bowel sounds are positive, soft, nontender, and nondistended. EXTREMITIES: Have 1+ pulses. Lower extremities: 1+ edema. Upper extremities: There is trace linden a in the arms. LABS: White count of 68, hemoglobin is 10.9, platelet count is 34. Creatinine is 5.6. ASSESSMENT: 1. Hepatorenal syndrome, type 1. 2. Acute kidney injury, anuric. 3. Liver mass. 4. Retroperitoneal lymphadenopathy. 5. Hyperbilirubinemia. 6. Crohn's. 7. Transaminitis. 8. Hyperuricemia. 9. Coagulopathy. 10. Thrombocytopenia. 11. Leukocytosis. 12. Hyperphosphatemia. 13. Shock. PLAN: The patient remains critically ill. His white count is increasing. He was given steroids. H is platelet count has decreased significantly. He is on norepinephrine. The patient is on D10 becau se of hypoglycemia. The patient is going to get dialyzed today to try to remove fluid as tolerated. The patient is on Zofran as needed. He is on Zosyn for antibiotics. Overall prognosis is poor. He remains to be a full code. Ottoniel Marinelli MD cc: [id number] TT: 02/07/2017 09:49:46 Confirmation # [id number] Dictation # [id number] mn
[2017-02-07] MEDS: Phytonadione 10 mg/ml Inj (Adult) SC SCH (10:22)
[2017-02-07 10:38] LABS: ARTERIAL BLOOD GAS HCO3 18.2 mmol/L (21-28); ARTERIAL BLOOD GAS O2 CAPACITY 13.6 mL/dl (16-24); ARTERIAL BLOOD HGB O2 SAT 92.1 % (95.0-98.0); CARBOXYHEMOGLOBIN 2.7 % (0.5-1.5); METHEMOGLOBIN 1.2 % (0.0-3.0)
[2017-02-07 10:39] LABS: ARTERIAL BLOOD GAS PH 7.16 (7.35-7.45)
--- NOTE | 2017-02-07 11:07 | RAD ---
HISTORY: desat COMPARISON: 02/04/2017 FINDINGS: LUNGS: Patchy infiltrates are again seen in the right upper and left lower lobes. There is a new right internal jugular dialysis catheter in the right atrium. There is no pneumothorax PLEURA: No significant pleural effusion identified, no pneumothorax apparent. CARDIOVASCULAR: Normal. OSSEOUS STRUCTURES: No significant abnormalities. VISUALIZED UPPER ABDOMEN: Normal. OTHER FINDINGS: None. IMPRESSION: Patchy infiltrates are again seen in the right upper and left lower lobes. There is a new right internal jugular dialysis catheter in the right atrium. There is no pneumothorax
[2017-02-07 12:17] LABS: INR 1.61 (0.93-1.08); PARTIAL THROMBOPLASTIN TIME 45.6 Seconds (23.7-30.8)
--- NOTE | 2017-02-07 12:22 | CP.PCM.CON ---
History of Present Illness - History of Present Illness History of Present Illness: Lethargic, dyspneic, moaning Past Patient History - Infectious Disease Hx of Infectious Diseases: None - Tetanus Immunizations Tetanus Immunization: Up to Date - Past Social History Smoking Status: Never Smoked - CARDIAC Hx Pacemaker: No - PULMONARY Hx Respiratory Disorders: No Hx Asthma: No Hx Bronchitis: No Hx Chronic Obstructive Pulmonary Disease (COPD): No Hx Emphysema: No Hx Pneumonia: No Hx Respiratory Aspiration: No Hx Respiratory Tract Infection: No Hx Sleep Apnea: No Hx Tuberculosis: No - NEUROLOGICAL Hx Neurological Disorder: No Hx Alzheimer's Disease: No HX Cerebrovascular Accident: No Hx Dementia: No Hx Dizziness: No Hx Meningitis: No Hx Migraine: No Hx Parkinson's Disease: No Hx Seizures: No Hx Transient Ischemic Attacks (TIA): No Other/Comment: DOWN'S SYNDROME. - HEENT Hx HEENT Problems: Yes Hx Blind: No Hx Cataracts: No Hx Deafness: Yes (BILATERAL HEARING AIDES USED) Hx Difficulty Chewing: No Hx Epistaxis: No Hx Glaucoma: No Hx Macular Degeneration: No - RENAL Hx Chronic Kidney Disease: Yes Hx Dialysis: No Hx Kidney Stones: No Hx Neurogenic Bladder: No Hx Pyelonephritis: No Hx Renal (Kidney) Cancer: No Hx Renal Failure: No Other/Comment: Current kidney infection - ENDOCRINE/METABOLIC Hx Hypothyroidism: Yes - HEMATOLOGICAL/ONCOLOGICAL Hx Blood Transfusions: Yes (LAST YEAR) Hx Blood Transfusion Reaction: No - INTEGUMENTARY Hx Dermatological Problems: Yes (LARGE GAPING WOUND IN BETWEEN BUTTOCKS.7.5 CM IN LENGTH.) Hx Basil Cell: No Hx Eczema: No Hx Melanoma: No Hx Psoriasis: No Hx Squamous Cell: No - MUSCULOSKELETAL/RHEUMATOLOGICAL Hx Musculoskeletal Disorders: Yes - GASTROINTESTINAL Hx Gastrointestinal Disorders: Yes Hx Colitis: Yes - GENITOURINARY/GYNECOLOGICAL Hx Genitourinary Disorders: No Hx Reproductive Disorders: No - PSYCHIATRIC Hx Emotional Abuse: No Hx Physical Abuse: No Hx Substance Use: No - SURGICAL HISTORY Hx Cardiac Catheterization: No Hx Coronary Stent: No Other/Comment: Pilonidal cyst - ANESTHESIA Hx Anesthesia Reactions: No Hx Malignant Hyperthermia: No Meds Allergies/Adverse Reactions: Allergies Allergy/AdvReac Type Severity Reaction Status Date / Time Sulfa (Sulfonamide Allergy ANAPHYLAXIS Verified 01/30/17 14:11 Antibiotics) - Medications Medications: Current Medications Albuterol/Ipratropium (Duoneb 3 Mg/0.5 Mg (3 Ml) Ud) 3 ml IH Q2H PRN PRN Reason: Shortness of Breath Last Admin: 02/06/17 04:29 Dose: 3 ml Allopurinol (Zyloprim) 100 mg PO DAILY [facility] Last Admin: 02/06/17 09:37 Dose: 100 mg Camphor/Menthol (Bengay) 0 gm TOP TID [facility] Last Admin: 02/06/17 18:10 Dose: Not Given Piperacillin Sod/Tazobactam Sod (Zosyn 2.25 Gm In 0.9% 100 Ml) 2.25 gm in 100 mls @ 100 mls/hr IV Q8 IVAN PRN Reason: Protocol Stop: 02/12/17 22:01 Last Admin: 02/06/17 13:12 Dose: 100 mls/hr Dextrose (Dextrose 10% In Water) 500 mls @ 50 mls/hr IV .Q10H [facility] Last Admin: 02/07/17 12:05 Dose: 50 mls/hr NOREPINEPHRINE BIT/0.9 % NACL (Levophed 4 Mg/ 250 Ml Ns Premixed) 4 mg in 250 mls @ 15 mls/hr IV .[id number] PRN; Protocol; 4 MCG/MIN PRN Reason: TITRATE PER MD ORDER Last Titration: 02/07/17 12:06 Dose: 8 mcg/min, 30 mls/hr Midodrine (Proamatine) 10 mg PO TID [facility] Last Admin: 02/06/17 18:06 Dose: 10 mg Morphine Sulfate (Morphine) 1 mg IVP Q3H PRN PRN Reason: Pain, moderate (4-7) Last Admin: 02/07/17 07:46 Dose: 1 mg Morphine Sulfate (Morphine) 2 mg IVP Q4 PRN PRN Reason: Pain, severe (8-10) Last Admin: 02/07/17 05:37 Dose: 2 mg Ondansetron HCl (Zofran Inj) 4 mg IVP Q4H PRN PRN Reason: Nausea/Vomiting Last Admin: 02/02/17 16:58 Dose: 4 mg Pantoprazole Sodium (Protonix Inj) 40 mg IVP DAILY [facility] Last Admin: 02/07/17 10:22 Dose: 40 mg Phytonadione (Vitamin K Inj) 10 mg SC DAILY [facility] Last Admin: 02/07/17 10:22 Dose: 10 mg Polyethylene Glycol (Miralax) 17 gm PO DAILY [facility] Last Admin: 02/06/17 09:35 Dose: 17 gm Physical Exam - Constitutional Appears: Chronically Ill - Eye Exam Eye Exam: PERRL, Scleral icterus - ENT Exam ENT Exam: Mucous Membranes Moist - Respiratory Exam Respiratory Exam: Accessory Muscle Use, Decreased Breath Sounds - Cardiovascular Exam Cardiovascular Exam: Tachycardia, +S1, +S2 - GI/Abdominal Exam GI & Abdominal Exam: Diminished Bowel Sounds, Distended - Exam Additional comments: oliguria - Extremities Exam Extremities exam: Positive for: pedal pulses present (edematous) Additional comments: edematous - Skin Skin Exam: Dry, Pallor Additional comments: jaundice Results - Vital Signs Recent Vital Signs: Last Vital Signs Temp 97.2 F L 02/07/17 04:00 Pulse 71 02/07/17 11:50 Resp 17 02/07/17 11:50 BP 105/45 L 02/07/17 11:00 Pulse Ox 89 L 02/07/17 11:50 - Labs Result Diagrams: 02/07/17 06:15 02/07/17 06:15 Labs: Laboratory Results - last 24 hr 01/31/17 02/03/17 02/04/17 18:49 23:00 09:00 WBC RBC Hgb Hct MCV MCH MCHC RDW Plt Count Gran % Lymph % (Auto) [place]asper % (Auto) Eos % (Auto) Baso % (Auto) Gran # Lymph # [place]asper # Eos # Baso # pCO2 pO2 HCO3 ABG pH ABG Total CO2 ABG O2 Saturation ABG O2 Content ABG Base Excess ABG Hemoglobin ABG Carboxyhemoglobin POC ABG HHb (Measured) ABG Methemoglobin ABG O2 Capacity Hgb O2 Saturation FiO2 Sodium Potassium Chloride Carbon Dioxide Anion Gap BUN Creatinine Est GFR ( Amer) Est GFR (Non-Af Amer) POC Glucose (mg/dL) Random Glucose Calcium Phosphorus Magnesium Total Bilirubin AST ALT Alkaline Phosphatase Total Protein Albumin Globulin Albumin/Globulin Ratio Fluid Albumin TNP ANCA Screen Negative c-ANCA Titer TNP p-ANCA Titer TNP Atypical p-ANCA Titer TNP Crossmatch See Detail 02/06/17 02/06/17 02/06/17 07:33 11:45 15:36 WBC RBC Hgb Hct MCV MCH MCHC RDW Plt Count Gran % Lymph % (Auto) [place]asper % (Auto) Eos % (Auto) Baso % (Auto) Gran # Lymph # [place] # Eos # Baso # pCO2 pO2 HCO3 ABG pH ABG Total CO2 ABG O2 Saturation ABG O2 Content ABG Base Excess ABG Hemoglobin ABG Carboxyhemoglobin POC ABG HHb (Measured) ABG Methemoglobin ABG O2 Capacity Hgb O2 Saturation FiO2 Sodium Potassium Chloride Carbon Dioxide Anion Gap BUN Creatinine Est GFR ( Amer) Est GFR (Non-Af Amer) POC Glucose (mg/dL) 159 H 188 H 166 H Random Glucose Calcium Phosphorus Magnesium Total Bilirubin AST ALT Alkaline Phosphatase Total Protein Albumin Globulin Albumin/Globulin Ratio Fluid Albumin ANCA Screen c-ANCA Titer p-ANCA Titer Atypical p-ANCA Titer Crossmatch 02/06/17 02/07/17 02/07/17 20:37 00:31 04:54 WBC RBC Hgb Hct MCV MCH MCHC RDW Plt Count Gran % Lymph % (Auto) Jasper % (Auto) Eos % (Auto) Baso % (Auto) Gran # Lymph # Jasper # Eos # Baso # pCO2 pO2 HCO3 ABG pH ABG Total CO2 ABG O2 Saturation ABG O2 Content ABG Base Excess ABG Hemoglobin ABG Carboxyhemoglobin POC ABG HHb (Measured) ABG Methemoglobin ABG O2 Capacity Hgb O2 Saturation FiO2 Sodium Potassium Chloride Carbon Dioxide Anion Gap BUN Creatinine Est GFR ( Amer) Est GFR (Non-Af Amer) POC Glucose (mg/dL) 148 H 137 H 140 H Random Glucose Calcium Phosphorus Magnesium Total Bilirubin AST ALT Alkaline Phosphatase Total Protein Albumin Globulin Albumin/Globulin Ratio Fluid Albumin ANCA Screen c-ANCA Titer p-ANCA Titer Atypical p-ANCA Titer Crossmatch 02/07/17 02/07/17 02/07/17 06:15 06:15 06:15 WBC 68.5 H* RBC 3.26 L Hgb 10.9 L Hct 31.3 L MCV 96.0 MCH 33.4 MCHC 34.8 RDW 17.0 H Plt Count 34 L* Gran % 88.1 H Lymph % (Auto) 2.9 L Jasper % (Auto) 4.3 Eos % (Auto) 4.0 Baso % (Auto) 0.7 Gran # 60.33 H Lymph # 2.0 Jasper # 3.0 H Eos # 2.8 H Baso # 0.47 pCO2 pO2 HCO3 ABG pH ABG Total CO2 ABG O2 Saturation ABG O2 Content ABG Base Excess ABG Hemoglobin ABG Carboxyhemoglobin POC ABG HHb (Measured) ABG Methemoglobin ABG O2 Capacity Hgb O2 Saturation FiO2 Sodium 132 Potassium 4.9 Chloride 101 Carbon Dioxide 18 L Anion Gap 18 BUN 56 H Creatinine 5.6 H Est GFR ( Amer) 14 Est GFR (Non-Af Amer) 12 POC Glucose (mg/dL) Random Glucose 116 H Calcium 7.8 L Phosphorus 6.8 H Magnesium 2.0 Total Bilirubin 9.4 H AST 83 H ALT 104 H Alkaline Phosphatase 338 H Total Protein 6.1 Albumin 2.5 L Globulin 3.6 Albumin/Globulin Ratio 0.7 L Fluid Albumin ANCA Screen c-ANCA Titer p-ANCA Titer Atypical p-ANCA Titer Crossmatch 02/07/17 02/07/17 09:05 10:25 WBC RBC Hgb Hct MCV MCH MCHC RDW Plt Count Gran % Lymph % (Auto) Jasper % (Auto) Eos % (Auto) Baso % (Auto) Gran # Lymph # Jasper # Eos # Baso # pCO2 51 H pO2 66.0 L HCO3 18.2 L ABG pH 7.16 L* ABG Total CO2 19.8 L ABG O2 Saturation 95.8 ABG O2 Content 13.0 L ABG Base Excess -10.2 L ABG Hemoglobin 10.0 L ABG Carboxyhemoglobin 2.7 H POC ABG HHb (Measured) 4.0 ABG Methemoglobin 1.2 ABG O2 Capacity 13.6 L Hgb O2 Saturation 92.1 L FiO2 100.0 Sodium Potassium Chloride Carbon Dioxide Anion Gap BUN Creatinine Est GFR ( Amer) Est GFR (Non-Af Amer) POC Glucose (mg/dL) 119 H Random Glucose Calcium Phosphorus Magnesium Total Bilirubin AST ALT Alkaline Phosphatase Total Protein Albumin Globulin Albumin/Globulin Ratio Fluid Albumin ANCA Screen c-ANCA Titer p-ANCA Titer Atypical p-ANCA Titer Crossmatch Assessment & Plan - Assessment and Plan (Free Text) Assessment: 36 year old male with history of Downs Syndrome and ulcerative colitis admitted with advanced adenocarcinoma primary unknown, multiple liver metastases , hepatorenal failure, leukocytosis, ascites, thrombocytopenia. Patient is non verbal, moaning. Patient parents at bedside. Resuscitation status discussed. Benefits and burdens of aggressive resuscitation with CPR/intubation explained. Family has decided to make patient DNR/DNI. Also spoke at length about patient overall medical condition and extremely poor prognosis. Option for hospice/ comfort care offered. Family verbalize understanding of patient situation and have decided to withhold dialysis. Family indicted that they want to proceed with comfort care and are meeting with clinical account liaison today for consideration of GIP services
[2017-02-07] MEDS: Menthol/Methyl Salicylate Ointment(1 oz) TOP SCH (12:25)
--- NOTE | 2017-02-07 12:30 | CP.PCM.PN ---
Subjective - Date & Time of Evaluation Date of Evaluation: 02/07/17 Time of Evaluation: 11:00 - Subjective Subjective: Lethargic, non verbal. Moaning. Objective - Vital Signs/Intake and Output Vital Signs (last 24 hours): Temp Pulse Resp BP Pulse Ox 97.2 F L 71 17 105/45 L 89 L 02/07/17 04:00 02/07/17 11:50 02/07/17 11:50 02/07/17 11:00 02/07/17 11:50 Intake and Output: 02/07/17 02/07/17 06:59 18:59 Intake Total 1183 0 Output Total 200 Balance 983 0 - Medications Medications: Current Medications Albuterol/Ipratropium (Duoneb 3 Mg/0.5 Mg (3 Ml) Ud) 3 ml IH Q2H PRN PRN Reason: Shortness of Breath Last Admin: 02/06/17 04:29 Dose: 3 ml Allopurinol (Zyloprim) 100 mg PO DAILY [facility] Last Admin: 02/06/17 09:37 Dose: 100 mg Camphor/Menthol (Bengay) 0 gm TOP TID [facility] Last Admin: 02/07/17 12:25 Dose: 1 oin Piperacillin Sod/Tazobactam Sod (Zosyn 2.25 Gm In 0.9% 100 Ml) 2.25 gm in 100 mls @ 100 mls/hr IV Q8 IVAN PRN Reason: Protocol Stop: 02/12/17 22:01 Last Admin: 02/06/17 13:12 Dose: 100 mls/hr Dextrose (Dextrose 10% In Water) 500 mls @ 50 mls/hr IV .Q10H [facility] Last Admin: 02/07/17 12:05 Dose: 50 mls/hr NOREPINEPHRINE BIT/0.9 % NACL (Levophed 4 Mg/ 250 Ml Ns Premixed) 4 mg in 250 mls @ 15 mls/hr IV .[id number] PRN; Protocol; 4 MCG/MIN PRN Reason: TITRATE PER MD ORDER Last Titration: 02/07/17 12:06 Dose: 8 mcg/min, 30 mls/hr Midodrine (Proamatine) 10 mg PO TID [facility] Last Admin: 02/06/17 18:06 Dose: 10 mg Morphine Sulfate (Morphine) 1 mg IVP Q3H PRN PRN Reason: Pain, moderate (4-7) Last Admin: 02/07/17 07:46 Dose: 1 mg Morphine Sulfate (Morphine) 2 mg IVP Q4 PRN PRN Reason: Pain, severe (8-10) Last Admin: 02/07/17 05:37 Dose: 2 mg Ondansetron HCl (Zofran Inj) 4 mg IVP Q4H PRN PRN Reason: Nausea/Vomiting Last Admin: 02/02/17 16:58 Dose: 4 mg Pantoprazole Sodium (Protonix Inj) 40 mg IVP DAILY [facility] Last Admin: 02/07/17 10:22 Dose: 40 mg Phytonadione (Vitamin K Inj) 10 mg SC DAILY [facility] Last Admin: 02/07/17 10:22 Dose: 10 mg Polyethylene Glycol (Miralax) 17 gm PO DAILY [facility] Last Admin: 02/06/17 09:35 Dose: 17 gm - Labs Labs: 02/07/17 06:15 02/07/17 06:15 PT 17.4 Seconds (9.9-11.8) H 02/07/17 12:00 INR 1.61 (0.93-1.08) H 02/07/17 12:00 APTT 45.6 Seconds (23.7-30.8) H 02/07/17 12:00 - Constitutional Appears: Chronically Ill - Head Exam Head Exam: NORMOCEPHALIC - Eye Exam Eye Exam: Scleral icterus Pupil Exam: NORMAL ACCOMODATION - ENT Exam ENT Exam: Mucous Membranes Moist, Normal Oropharynx - Respiratory Exam Respiratory Exam: Accessory Muscle Use, Decreased Breath Sounds - Cardiovascular Exam Cardiovascular Exam: Tachycardia, +S1, +S2 - GI/Abdominal Exam GI & Abdominal Exam: Distended, Tenderness, Diminished Bowel Sounds - Exam Additional comments: oliguria - Extremities Exam Additional comments: edematous - Skin Skin Exam: Dry, Pallor Additional comments: jaundice Assessment and Plan - Assessment and Plan (Free Text) Assessment: 36 year old male with history of Downs Syndrome and ulcerative colitis admitted with advanced adenocarcinoma primary unknown, multiple liver metastases , hepatorenal failure, leukocytosis, ascites, thrombocytopenia,jaundice. Patient is non verbal, moaning. Patient parents at bedside. Resuscitation status discussed. Benefits and burdens of aggressive resuscitation with CPR/intubation explained. Family has decided to make patient DNR/DNI. Also spoke at length about patient overall medical condition and extremely poor prognosis. Option for hospice/ comfort care offered. Family verbalize understanding of patient situation and have decided to withhold dialysis. Family indicted that they want to proceed with comfort care and are meeting with engagement liaison today for consideration of GIP services. Time spent with family in goals of care discussion, end of life counseling, 60 minutes. Plan: DNR/DNI Hospice evaluation for GIP services
[2017-02-07 12:37] LABS: FIBRINOGEN 198.8 mg/dL (187-400)
[2017-02-07 12:54] LABS: CCP IGG <16 Units (<20)
--- NOTE | 2017-02-07 16:08 | PN ---
DATE: 02/07/2017 The patient is in bed, in no acute distress. However, continues to deteriorate. Overall, in poor st atus. Family members present. PHYSICAL EXAMINATION: VITAL SIGNS: Temperature is 97, blood pressure is 100/60, respiratory rate of . HEENT: The patient's nonrebreather mask is on. HEENT: Unremarkable. NECK: Supple. LUNGS: Have decreased breath sounds. HEART: Normal S1, S2. ABDOMEN: Soft, nontender. LABORATORY EXAMINATION: Reveals the patient's white count is 68,000, hemoglobin of 10, platelets of 34. Chemistries are noted, creatinine is 5.6. Urinalysis is noted. Carolee Hobbs's consultation and progress note are reviewed and possible hospice evaluation. ASSESSMENT AND PLAN: A 36-year-old morbidly obese male with a body mass index of 43, Crohn's disease , hypothyroidism with systemic inflammatory response syndrome, leukemoid reaction, metastatic epithel ioid malignancy. Now, the patient's condition has deteriorated. Supportive care, possible hospice l ater today. Poorly differentiated adenocarcinoma. Overall prognosis is quite poor. We will discont inue the Zosyn. All cultures have been negative. Niranjan Higginbotham MD cc: [phone] TT: 02/07/2017 14:53:07 Confirmation # [id number] Dictation # [id number]
[2017-02-07] MEDS ORDERED: Morphine PCA 1 mg/ml (25ml) 25 ML IV PRN (16:13)
[2017-02-07] MEDS ORDERED: Morphine 2 mg/ml ISec IVP STA (16:50)
[2017-02-07 19:13] VITALS: BP 98/77; PULSE 69; RESP 9; O2SAT 91
--- NOTE | 2017-02-07 21:03 | US ---
HISTORY: Leg pain and swelling. Evaluate for DVT PHYSICIAN(S): Mick Willis MD. TECHNIQUE: Duplex sonography and color-flow Doppler with graded compression were used to evaluate the deep venous systems of both lower extremities. The exam is limited by body habitus and edema. The tibial veins are not well seen. FINDINGS: The visualized deep venous systems of both lower extremities are sonographically normal and compressible. Normal wave forms and augmentation are seen. There is no sonographic evidence for deep venous thrombosis in the visualized segments of both lower extremities. IMPRESSION: No sonographic evidence for deep venous thrombosis in the visualized segments of both lower extremities. Limited study.
== END 2017-02-07 18:00 | disposition hospice, inpatient (51) | DRG 853 ==
LOC: ED 14:03 → ERH 18:08 → 5RNO 23:51 → CCU 02-03 19:42 → UNDODISIN 02-07 15:35
PROVIDERS: ADMIT Internal Medicine Nephrology; ATTEND Internal Medicine Nephrology
PROC: 07BD3ZX Excision of Aortic Lymphatic, Percutaneous Approach, Diagnostic (ICD-10-PCS; principal; 2017-01-31 16:00)
PROC: 30233K1 Transfusion of Nonautologous Frozen Plasma into Peripheral Vein, Percutaneous Approach (ICD-10-PCS; 2017-02-03)
PROC: 02HV33Z Insertion of Infusion Device into Superior Vena Cava, Percutaneous Approach (ICD-10-PCS; 2017-02-04)
PROC: 05HM33Z Insertion of Infusion Device into Right Internal Jugular Vein, Percutaneous Approach (ICD-10-PCS; 2017-02-04)
PROC: 5A1D00Z (ICD-10-PCS; 2017-02-04)
PROC: 30233R1 Transfusion of Nonautologous Platelets into Peripheral Vein, Percutaneous Approach (ICD-10-PCS; 2017-02-04)
PROC: 5A09457 Assistance with Respiratory Ventilation, 24-96 Consecutive Hours, Continuous Positive Airway Pressure (ICD-10-PCS; 2017-02-04)
PROC: 3E0F7GC Introduction of Other Therapeutic Substance into Respiratory Tract, Via Natural or Artificial Opening (ICD-10-PCS; 2017-02-04)
DX: A41.9 Sepsis, unspecified organism (principal); K76.7 Hepatorenal syndrome; R34 Anuria and oliguria; J90 Pleural effusion, not elsewhere classified; D68.9 Coagulation defect, unspecified; C78.7 Secondary malignant neoplasm of liver and intrahepatic bile duct; N17.9 Acute kidney failure, unspecified; E87.2 Acidosis; I31.3 Pericardial effusion (noninflammatory); K50.10 Crohn's disease of large intestine without complications; K51.90 Ulcerative colitis, unspecified, without complications; N39.0 Urinary tract infection, site not specified; K80.21 Calculus of gallbladder without cholecystitis with obstruction; Z68.41 Body mass index [BMI] 40.0-44.9, adult; R18.8 Other ascites; E03.9 Hypothyroidism, unspecified; R59.0 Localized enlarged lymph nodes; C80.1 Malignant (primary) neoplasm, unspecified; Q90.9 Down syndrome, unspecified; K29.50 Unspecified chronic gastritis without bleeding; N20.0 Calculus of kidney; D50.9 Iron deficiency anemia, unspecified; R09.02 Hypoxemia; D64.9 Anemia, unspecified; E79.0 Hyperuricemia without signs of inflammatory arthritis and tophaceous disease; R74.0 Nonspecific elevation of levels of transaminase and lactic acid dehydrogenase [LDH]; D72.823 Leukemoid reaction; D69.6 Thrombocytopenia, unspecified; E66.01 Morbid (severe) obesity due to excess calories; Z66 Do not resuscitate; Z51.5 Encounter for palliative care; E83.39 Other disorders of phosphorus metabolism

== ENCOUNTER 2017-02-07 15:35 | Inpatient (IN) | payer OTHER ==
[2017-02-07] MEDS ORDERED: Scopolamine 1.5 mg/24 hr Patch TD SCH (19:30)
[2017-02-07] MEDS ORDERED: Morphine PCA 1 mg/ml (25ml) 25 ML IV PRN (19:30)
[2017-02-08] MEDS: Morphine PCA 1 mg/ml (25ml) 25 ML IV PRN ×2 (05:02→17:15)
[2017-02-08 10:33] VITALS: BP 72/50; PULSE 76; RESP 20; TEMP 97.1; BMI 42.9
--- NOTE | 2017-02-08 11:50 | CP.PCM.CON ---
History of Present Illness - History of Present Illness History of Present Illness: Palliative consult as per Dr Ansley Mrainelli Hospice care 36 year old male who was admitted to the acute care setting on 01/30/17 with abdominal pain, distention, ascites,jaundice, NIKITA,UTI. Workup revealed patient to have adenocarcinoma primary unknown which had metastasized to liver and peritoneum. Sepsis, hepatorenal failure,dialyzed twice. After extensive discussion with patient's family regarding poor prognosis, it was decided to transition patient to hospice care. PMHX: ulcerative colitis, Downs syndrome,anemia, decubiti ulcer,GI bleed, hypothyroidism. Social History: Non smoker, no alcohol or drug use. Lives with his parents. Family History: Non contributory Advance Care Planning: The patient is DNR/DNI. Review of Systems: As per HPI, the patient is now unresponsive, unable to obtain. Past Patient History - Infectious Disease Hx of Infectious Diseases: None - Tetanus Immunizations Tetanus Immunization: Up to Date - Past Social History Smoking Status: Never Smoked - CARDIAC Hx Pacemaker: No - PULMONARY Hx Respiratory Disorders: No Hx Asthma: No Hx Bronchitis: No Hx Chronic Obstructive Pulmonary Disease (COPD): No Hx Emphysema: No Hx Pneumonia: No Hx Respiratory Aspiration: No Hx Respiratory Tract Infection: No Hx Sleep Apnea: No Hx Tuberculosis: No - NEUROLOGICAL Hx Neurological Disorder: No Hx Alzheimer's Disease: No HX Cerebrovascular Accident: No Hx Dementia: No Hx Dizziness: No Hx Meningitis: No Hx Migraine: No Hx Parkinson's Disease: No Hx Seizures: No Hx Transient Ischemic Attacks (TIA): No Other/Comment: DOWN'S SYNDROME. - HEENT Hx HEENT Problems: Yes Hx Blind: No Hx Cataracts: No Hx Deafness: Yes (BILATERAL HEARING AIDES USED) Hx Difficulty Chewing: No Hx Epistaxis: No Hx Glaucoma: No Hx Macular Degeneration: No - RENAL Hx Chronic Kidney Disease: Yes Hx Dialysis: No Hx Kidney Stones: No Hx Neurogenic Bladder: No Hx Pyelonephritis: No Hx Renal (Kidney) Cancer: No Hx Renal Failure: No Other/Comment: Current kidney infection - ENDOCRINE/METABOLIC Hx Hypothyroidism: Yes - HEMATOLOGICAL/ONCOLOGICAL Hx Blood Transfusions: Yes (LAST YEAR) Hx Blood Transfusion Reaction: No - INTEGUMENTARY Hx Dermatological Problems: Yes (LARGE GAPING WOUND IN BETWEEN BUTTOCKS.7.5 CM IN LENGTH.) Hx Basil Cell: No Hx Eczema: No Hx Melanoma: No Hx Psoriasis: No Hx Squamous Cell: No - MUSCULOSKELETAL/RHEUMATOLOGICAL Hx Musculoskeletal Disorders: Yes - GASTROINTESTINAL Hx Gastrointestinal Disorders: Yes Hx Colitis: Yes - GENITOURINARY/GYNECOLOGICAL Hx Genitourinary Disorders: No Hx Reproductive Disorders: No - PSYCHIATRIC Hx Emotional Abuse: No Hx Physical Abuse: No Hx Substance Use: No - SURGICAL HISTORY Hx Cardiac Catheterization: No Hx Coronary Stent: No Other/Comment: Pilonidal cyst - ANESTHESIA Hx Anesthesia Reactions: No Hx Malignant Hyperthermia: No Meds Allergies/Adverse Reactions: Allergies Allergy/AdvReac Type Severity Reaction Status Date / Time Sulfa (Sulfonamide Allergy ANAPHYLAXIS Verified 01/30/17 14:11 Antibiotics) - Medications Medications: Current Medications Acetaminophen (Tylenol 650 Mg Supp) 650 mg RC Q6H PRN PRN Reason: fever > 101 Morphine Sulfate (Morphine Opera Singer 1 Mg/Ml) 25 mls @ 2 mls/hr IV PRN PRN; Protocol ; 2 MG/HR PRN Reason: SPECIAL EDUCATOR PER MD ORDER Last Admin: 02/08/17 05:02 Dose: 2 mg/hr, 2 mls/hr Lorazepam (Ativan) 1 mg IVP Q6H PRN; Protocol PRN Reason: Agitation Scopolamine (Transderm-Scop) 1 patch TD Q3D IV[facility] Last Admin: 02/07/17 21:24 Dose: 1 patch Physical Exam - Constitutional Appears: Chronically Ill - Head Exam Head Exam: NORMOCEPHALIC - Eye Exam Eye Exam: PERRL, Scleral icterus - ENT Exam ENT Exam: Mucous Membranes Moist - Neck Exam Neck exam: Positive for: Normal Inspection - Respiratory Exam Respiratory Exam: Accessory Muscle Use, Decreased Breath Sounds - Cardiovascular Exam Cardiovascular Exam: REGULAR RHYTHM, +S1, +S2 - GI/Abdominal Exam GI & Abdominal Exam: Diminished Bowel Sounds, Distended, Firm - Exam Additional comments: anuric - Extremities Exam Extremities exam: Positive for: pedal pulses present - Skin Skin Exam: Dry, Pallor Additional comments: jaundice, generalized anasarca, large sacral decubiti Results - Vital Signs Recent Vital Signs: Last Vital Signs Temp 97.1 F L 02/07/17 15:59 Pulse 76 02/07/17 15:59 Resp 20 02/07/17 15:59 BP 72/50 L 02/07/17 15:59 Pulse Ox Assessment & Plan - Assessment and Plan (Free Text) Assessment: 36 year old male with metastatic adenocarcinoma, Downs syndrome, acute kidney failure, anasarca, jaundice, abdominal pain. The patient was admitted to [facility] services for management of intractable pain, respiratory distress and ascites. Family as at bedside. Signs of impending explained. Psychosocial support given. Plan: Pain management; Morphine 2mg/hr continuos infusion. Tylenol 650 mg RC as needed for fever over 100 Ativan 1 mg IV as needed for agitation Scopolamine transdermal patch to decrease respiratory secretions. Gentle suctioning as needed
[2017-02-08] MEDS ORDERED: Morphine PCA 1 mg/ml (25ml) 25 ML IV PRN (20:14)
[2017-02-08] MEDS ORDERED: Morphine 2 mg/ml ISec IVP STA (20:23)
[2017-02-08] MEDS ORDERED: DiphenhydrAMINE 50 mg/ml Inj IVP STA (22:12)
--- NOTE | 2017-02-09 01:14 | CP.PCM.PRO ---
Pronouncement of Note - Clinical Findings Physical Exam: No Response Verbal/Painful Stimuli, Absent Peripheral Pulses{ Carotid & Femoral}, Absent Heart & Breath Sounds, No Pupillary Light Reflex, No Corneal Reflex, Pupils Fixed & Dilated, Absence of Vital Signs - Pronouncement Time Time of Pronouncement of : 01:05 - Notifications Pronouncement Notifications: Family Notified (Both parents in room and are aware.) [employer] Notified: No - Autopsy Autopsy Requested: No - [place]: [id number]
== END 2017-02-09 01:05 | DRG 843 ==
LOC: UNDOADMIN 15:35 → CCU 15:35 → 3RNO 02-08 12:13
PROVIDERS: ADMIT Internal Medicine Nephrology; ATTEND Internal Medicine Nephrology
DX: C80.1 Malignant (primary) neoplasm, unspecified (principal); A41.9 Sepsis, unspecified organism; K76.7 Hepatorenal syndrome; L89.159 Pressure ulcer of sacral region, unspecified stage; N17.9 Acute kidney failure, unspecified; R18.8 Other ascites; K51.90 Ulcerative colitis, unspecified, without complications; C78.7 Secondary malignant neoplasm of liver and intrahepatic bile duct; C78.6 Secondary malignant neoplasm of retroperitoneum and peritoneum; E03.9 Hypothyroidism, unspecified; H91.90 Unspecified hearing loss, unspecified ear; Q90.9 Down syndrome, unspecified; N18.9 Chronic kidney disease, unspecified; D64.9 Anemia, unspecified; Z66 Do not resuscitate; Z88.2 Allergy status to sulfonamides; Z51.5 Encounter for palliative care